=== PATIENT | female | born 1960 | race Caucasian/White ===

== ENCOUNTER 2023-05-13 08:53 | Outpatient (OUT) | payer BC, SELFPAY ==
--- NOTE | 2023-05-13 09:13 | MM_ITS ---
Patient: Tato TOLBERT Exam Date: 05/13/2023 : 1960 Gender:F Ordering : Non-Staff Physician Admission #: [id number] Family : DR. KESHIA TAYLOR . Order #: [id number] CLICK HERE TO VIEW EXAM RADIOLOGY REPORT PROCEDURE: MM TOMOSYNTHESIS DIAGNOSTIC LT, 05/13/2023, 09:06 US BREAST LT LIMITED, 05/13/2023, 09:38 COMPARISON: MG MAMM SCREEN 3D EDDIE CAD, 08/12/2022. INDICATIONS: Left Axillary Lump R22.32, Mass Of Upper Outer Quadrant Calculator Name NCI Breast Cancer Risk Assessment Tool 5 Year Breast Cancer Risk n/a% Lifetime Breast Cancer Risk n/a% Personal Breast Cancer Yes, DCIS, cribiform type Personal Ovarian Cancer No Treatments Lumpectomy, radiation,Tamoxifen Family Cancers Mother with breast cancer at age 72; Father with skin cancer at age 65. LOCATION: [facility] BREAST COMPOSITION: Scattered areas fibroglandular density. FINDINGS: DIAGNOSTIC CATEGORY 0--INCOMPLETE: NEED ADDITIONAL IMAGING EVALUATION. The left breast is stable in overall size and fibroglandular configuration. Area of architectural distortion and asymmetric density again noted in the upper outer quadrant. Coarse calcifications likely postsurgical dystrophic in nature. In the region the patient's palpable abnormality demarcated with a triangle marker upper outer quadrant in area focal asymmetry is observed, grossly stable. Scattered calcifications and surgical clips. Linear scar markers. Ultrasound demonstrates corresponding to the patient's palpable abnormality 2.6 x 0.9 x 1.7 cm lobular angular mass with acoustic shadowing. Adjacent to this is an area severe hypoechogenicity likely representing scar tissue. This lesion is indeterminate as this is a newly palpable mass, and given the patient's multiple prior surgeries, MRI follow-up is RECOMMENDATIONS: BREAST MRI: BILATERAL BREASTS PLEASE NOTE: A NORMAL MAMMOGRAM DOES NOT EXCLUDE THE POSSIBILITY OF BREAST CANCER. A CLINICALLY SUSPICIOUS PALPABLE LUMP SHOULD BE BIOPSIED. Dictated by: Guanaco Fountain MD on 05/13/2023 at 10:09 Approved by: Guanaco Fountain MD on 05/13/2023 at 10:12
== END 2023-05-13 08:54 | disposition home or self-care (01) ==
PROVIDERS: PCP Family Medicine
DX: D05.12 Intraductal carcinoma in situ of left breast (principal); R22.32 Localized swelling, mass and lump, left upper limb; N63.21 Unspecified lump in the left breast, upper outer quadrant
CPT/HCPCS: 76642; 77065; G0279

== ENCOUNTER 2024-08-24 11:28 | Outpatient (OUT) | payer SELFPAY ==
--- NOTE | 2024-08-24 11:34 | MM_ITS ---
Patient Name: Tato TOLBERT MR#: [id number] : 1960 Exam Date: 08/24/2024 Ordering Doctor: DR Rosita Meza [facility] RADIOLOGY REPORT PROCEDURE: MM TOMOSYNTHESIS SCREENING BI COMPARISON: MM TOMOSYNTHESIS DIAGNOSTIC LT, 05/13/2023. MG MAMM SCREEN 3D EDDIE CAD, 08/12/2022. MG MAMM DIAGNOSTIC 3D EDDIE CAD, 08/08/2021. MG MAMM EDDIE DIAG W CAD, 07/17/2020. INDICATIONS: Screening Calculator Name NCI Breast Cancer Risk Assessment Tool 5 Year Breast Cancer Risk n/a% Lifetime Breast Cancer Risk n/a% Personal Breast Cancer Yes, DCIS, cribiform type Personal Ovarian Cancer No Treatments Lumpectomy, radiation,Tamoxifen Family Cancers Mother with breast cancer at age 72; Father with skin cancer at age 65. LOCATION: [facility] BREAST COMPOSITION: There are scattered areas of fibroglandular density. FINDINGS: DIAGNOSTIC CATEGORY 2--BENIGN FINDING: RIGHT BREAST: No significant suspicious finding. Scattered benign-appearing calcifications are present. No significant change has occurred. LEFT BREAST: No significant suspicious finding. Scattered benign-appearing calcifications are present. No significant change has occurred. Stable lower-outer quadrant post surgical scarring. RECOMMENDATIONS: ROUTINE MAMMOGRAM AND CLINICAL EVALUATION IN 12 MONTHS. PLEASE NOTE: A NORMAL MAMMOGRAM DOES NOT EXCLUDE THE POSSIBILITY OF BREAST CANCER. A CLINICALLY SUSPICIOUS PALPABLE LUMP SHOULD BE BIOPSIED. Dictated by: Leonardo Jean M.D. on 08/24/2024 at 15:27 Approved by: Leonardo Jean M.D. on 08/24/2024 at 15:29
== END 2024-08-24 11:29 | disposition home or self-care (01) ==
LOC: MAMMO 11:28
PROVIDERS: PCP Family Medicine; Visit Provider Physician Assistant Medical
DX: Z12.31 Encounter for screening mammogram for malignant neoplasm of breast (principal); Z85.3 Personal history of malignant neoplasm of breast; Z80.3 Family history of malignant neoplasm of breast; Z80.8 Family history of malignant neoplasm of other organs or systems
CPT/HCPCS: 77063; 77067

== ENCOUNTER 2024-11-08 12:15 | Outpatient (OUT) | payer OTHER, SELFPAY ==
--- NOTE | 2024-11-08 12:26 | XR_ITS ---
The [place] [id number] Patient Name: Tato TOLBERT MRN: [id number] date: 1960 Sex: F Assigned Patient Location: [facility] Current Patient Location: Accession/Order Number: [id number] Exam Date: 11/08/2024 12:38 Report Date: 11/09/2024 08:17 At the request of: HEIDI GARNETT Procedure: XR lumbar spine min 4V EXAMINATION: XR lumbar spine min 4V HISTORY: Low Back Pain COMPARISON: CT abdomen pelvis 03/18/2020 FINDINGS: BONES: Mild left convex curvature of the thoracolumbar spine. No fracture, significant spondylolisthesis, or bone lesion. Moderate degenerative facet arthropathy L4-5, L5-S1. DISC SPACES: Marked narrowing L4-5, L5-S1. Mild/moderate narrowing L1-2, L2-3.. PARASPINOUS: Negative. No paraspinous abnormality is seen. OTHER: Negative. XR/XR lumbar spine min 4V IMPRESSION: 1. Multilevel moderate-marked degenerative changes of lumbar spine; not appreciably changed. Electronically authenticated by: PATRICA MARTIN Date: 11/09/2024 08:17
--- OUTSIDE RECORDS SUMMARY | 2024-11-08 12:38 | XMS_ITS | CCD ---
Author Organization [facility] Care Team Providers Care [employer] Name Role Phone PHYSICIAN, DEFAULT Unavailable Unavailable PHYSICIAN, DEFAULT Unavailable Unavailable LC HARVEY Unavailable Unavailable LC HARVEY Unavailable Unavailable LC PLATT Unavailable Unavailable LC PLATT Unavailable Unavailable [place] Unavailable Unavailable LC HARVEY Unavailable Unavailable [place] Unavailable Unavailable LOYD SCOTT Unavailable Unavailable [place] Claudio Attending Provider NO FAMILY, PHYSICIAN Primary Care Provider Unava ilable ALEXANDRA CASTANEDA Primary Care Physician [phone] Alexandra Castaneda MD Primary Care Provider [phone] Keshia Taylor Primary Care Physician Alexandra Castaneda MD Primary Care Provider CLARITZA GARCIA Attending Unavailable DR CHRISTINE ZULETA Primary Care Unavailable CLARITZA GARCIA Admitting Unavailable DR PATRICA JEAN Consulting Unavailable CLARITZA GARCIA Consulting Unavailable DR CHRISTINE ZULETA Attending Unavailable DR CHRISTINE ZULETA Consulting Unavailable DR CHRISTINE ZULETA Primary Care Unavailable DR CHRISTINE ZULETA Admitting Unavailable Alexandra Castaneda MD Primary Care Provider [phone] Alexandra Castaneda MD Primary Care Provider Keshia Taylor MD Primary Care Provider [phone] JASON BUCHANAN Attending Unavailable CLARITZA GARCIA Referring Unavailable KESHIA TAYLOR Primary Care Unavailable KESHIA TAYLOR Primary Care Unavailable Unavailable Unavailable Unavailable Allergies Allergy Classification Reported Allergen(s) Allergy Type Date of Onset Reaction(s) Facility (16 sources) Sulfonamides (Antibiotic); Translations: [SULFA (SULFONAMIDE ANTIBIOTICS)] Propensity to adverse reactions (disorder) 3 Rash [facility] (20 sources) RAGWEED; Translations: [RAGWEED] Propensity to adverse reactions (disorder) 4 Intolerance, Unknown [facility] (1 source) No Known Allergies; Translations: [No Known Allergies] Propensity to adverse reactions (disorder) [facility] (9 sources) Sulfonamides (Antibiotic); Translations: [sulfa drugs] Drug allergy Eruption of skin (disorder) [facility] [place] (1 source) Sulfonamides (Antibiotic) Drug allergy (disorder) 3 The [facility] Medications Current Medications Medication Drug Class(es) Dates Sig (Normalized) Sig (Original) alendronic acid 35 mg oral tablet (20 sources) Bisphosphonate Start: 08-28-2021 alendronate (FOSAMAX) 35 mg tablet 08/28/2021 Active ALPRAZolam 0.25 mg oral tablet (20 sources) Benzodiazepine Start: 05-22-2015 take 1 tablet by mouth every twenty-four hours as needed ALPRAZolam (XANAX) 0.25 mg tablet Take 0.25 mg by mouth at bedtime as needed. 05/22/2015 Active Comment on above: Take 0.25 mg by mout h at bedtime as needed. amLODIPine 10 mg oral tablet (20 sources) Dihydropyridine Calcium Channel Mandi Start: 07-26-2020 take 1 tablet by mouth once daily Norvasc 10 mg Tab See Instructions, 1 tab(s) Oral Daily, Refills(s) 0, High blood pressure Start Date: 07/26/20 Status: Ordered take 1 tablet by mouth once aida y amLODIPine (NORVASC) 5 mg tablet Take 5 mg by mouth once daily. Active Comment on above: Take 5 mg by mouth o nce daily. aspirin 81 mg oral capsule (16 sources) Platelet Aggregation Inhibitor, Nonsteroidal Anti-inflammatory Drug Start: 02-20-2022 aspirin 81 mg oral capsule 81 mg = 1 cap(s), Oral, MonTueSat, Refills(s) 0 Start Date: 02/20/22 Status: Ordered ADULT ASPIRIN OR AL Take 81 mg by mouth. Active Comment on above: Take 81 mg by mouth. atorvastatin 40 mg oral tablet (14 sources) HMG-CoA Reductase Inhibitor Start: take 1 tablet by mouth once daily atorvastatin (LIPITOR) 40 mg tablet Take 40 mg by mouth once daily. 08/25/2022 Active Start: 07-25-2022 take 1 tablet by claude th once daily atorvastatin 40 mg Tab 40 mg = 1 tab(s), Oral, Daily, # 30 tab(s), Refills(s) 0 Start Date: 07/25/22 Status: Ordered Comment on above: Take 40 mg by mouth once daily. benzonatate 100 mg oral capsule (9 sources) Non-narcotic Antitussive Start: 02-20-2022 take 1 capsule by mouth three times daily Tessalon 100 mg Cap 100 mg = 1 cap(s), Oral, TID, Refills(s) 0 Start Date: 02/20/22 Status: Ordered Calcium Carbonate / vitamin D3 (13 sources) CALCIUM CARBONATE/VITAMIN D3 (CALCIUM 500 + D ORAL) Take by mouth. Active CALCIUM CARBONAT E/VITAMIN D3 (CALCIUM 500 + D ORAL) Take by mouth. 0 Active Comment on above: Take by mouth. cephalexin 500 mg oral capsule (1 source) Cephalosporin Antibacterial Start: 07-29-20 End: 08-03-20 take 1 capsule by mouth three times daily Keflex 500 mg Cap 500 mg = 1 cap(s), Oral, TID, X 5 day(s), # 15 cap(s), Refills(s) 0, Pharmacy: [facility], 155, cm, 07/27/22 17:37:00 EDT, Height/Length Dosing, 82.1, kg, 07/27/22 17:37:00 EDT, Weight Dosing Start Date: 07/29/22 Stop Date: 08/03/22 Status: Ordered cholecalciferol 5500 unt / vitamin k2 0.2 mg oral tablet (10 sources) Vitamin D Start: 06-29-20 take 1 tablet by mouth once daily DOSOKAP 5,500-200 unit-mcg tab TAKE 1 TABLET BY MOUTH ONCE DAILY 06/29/2022 Active Comment on above: TAKE 1 TABLET BY CLAUDE TH ONCE DAILY ciprofloxacin 500 mg oral tablet (1 source) Quinolone Antimicrobial Start: 02-21-20 End: 02-28-20 take 1 tablet by mouth every twelve hours Cipro 500 mg Tab 500 mg = 1 tab(s), Oral, q12hr, X 7 day(s), # 14 tab(s), Refills(s) 0, Pharmacy: [id number], 154, cm, 02/20/22 14:58:00 EDT, Height/Length Dosing, 85.7, kg, 02/20/22 14:58:00 EDT, Weight Dosing Start Date: 02/20/22 Stop Date: 02/27/22 Status: Ordered Co-Q10 (9 sources) Start: 07-26-20 take 1 tablet by mouth three times daily Co-Q10 1 tab, Oral, TID, Refills(s) 0, Prophylaxis Start Date: 07/26/20 Status: Ordered Essential oil tab (Immune) (9 sources) Start: 08-04-20 Essential oil tab (Immune) Essential oil tab (Immune), 1 tab, Oral, Daily Start Date: 08/04/20 Status: Ordered Flonase (7 sources) Corticosteroid Start: 08-04-20 Flonase 1 spray(s), Nasal, Daily, Refill(s) 0, Allergy symptoms Start Date: 08/04/20 Status: Ordered Magnesium (13 sources) Start: 08-04-20 MAGNESIUM ORAL Take 250 mg by mouth. 08/04/2020 Active Start: 08-04-2020 MAGNESIUM ORAL Take 250 mg by mouth. 0 08/04/2020 Active Comment on above: Take 250 mg by mouth . magnesium gluconate 250 mg oral tablet (9 sources) Start: 08-04-2020 take 1 tablet by mouth once daily magnesium gluconate 250 mg oral tablet 250 mg, 1 tab(s), Oral, Daily, Refill(s) 0, Prophylaxis Start Date: 08/04/20 Status: Ordered Medrol Dosepack 4 mg Tab (1 source) Start: 02-20-2022 End: 02-26-2022 Medrol Dosepack 4 mg Tab = 1 packet(s), Oral, As Directed, as directed on package labeling, X 6 day(s), # 21 tab(s), Refills(s) 0, Pharmacy: [id number], 154, cm, 02/20/22 14:58:00 EDT, Height/Length Dosing, 85.7, kg, 02/20/22 14:58:00 EDT, Weight Dosing Start Date: 02/20/22 Stop Date: 02/26/22 Status: Ordered melatonin 10 mg extended release oral tablet (20 sources) Start: 07-26-2020 take 10 mg by mouth once daily at bedtime melatonin 10 mg, Oral, Once a day (at bedtime), Refills(s) 0, Sleep Start Date: 07/26/20 Status: Ordered take 1 tablet by claude th every twenty-four hours as needed melatonin 3 mg tablet Take 3 mg by mouth at bedtime as needed. Active Comment on above: Take 3 mg by mouth a t bedtime as needed. metoprolol tartrate 25 mg oral tablet (15 sources) beta-Adrenergic Mandi Start: 08-25-2022 take 1 tablet by mouth twice daily metoprolol tartrate, short acting, (LOPRESSOR) 25 mg tablet Take 25 mg by mouth twice daily. 08/25/2022 Active Start: 07-25-2022 End: 07-28-2022 take 1 tablet by mouth twice daily Metoprolol tartrate 25 mg Tab 25 mg = 1 tab(s), Oral, BID, # 60 tab(s), Refills(s) 0 Start Date: 07/25/22 Status: Ordered Comment on above: Take 25 mg by mouth twice daily. Mounjaro 5 mg/0.5 mL subcutaneous solution (7 sources) Start: 07-08-2022 Mounjaro 5 mg/0.5 mL subcutaneous solution Refills(s) 0 Start Date: 07/08/22 Status: Ordered MOUNJARO 7.5 mg/0.5 mL pen injector (10 sources) Start: 08-25-2022 MOUNJARO 7.5 mg/0.5 mL pen injector INJECT 1 ONCE A WEEK 08/25/2022 Active Start: 08-25-2022 MOUNJARO 7.5 m g/0.5 mL pen injector INJECT 1 ONCE A WEEK 0 08/25/2022 Active Comment on above: INJECT 1 ONCE A WEEK Multi Vitamin+ (9 sources) Start: 07-26-2020 take 1 tablet by mouth once daily Multi Vitamin+ 1 tab, Oral, Daily, Refill(s) 0 Start Date: 07/26/20 Status: Ordered Multivitamin preparation (13 sources) MULTIVITAMIN ( TAMIN DAILY ORAL) Take by mouth. Active MULTIVITAMIN ( TAMIN DAILY ORAL) Take by mouth. 0 Active Comment on above: Take by mouth. naproxen 250 mg oral tablet (20 sources) Nonsteroidal Anti-inflammatory Drug Start: 08-04-2020 naproxen (NAPROSYN) 250 mg tablet Take by mouth. 08/04/2020 Active Start: 08-04-2020 take 2 tablets by mo [facility] every twelve hours naproxen 250 mg tab = 2 tab(s), Oral, q12hr, Refills(s) 0, Pain Start Date: 08/04/20 Status: Ordered Comment on above: Take by mouth. 12 hr orphenadrine citrate 100 mg extended release oral tablet (9 sources) Muscle Relaxant Start: take 1 tablet by mouth twice daily orphenadrine 100 mg ER Tab 100 mg = 1 tab(s), Oral, BID, Refills(s) 0 Start Date: 02/20/22 Status: Ordered pantoprazole 20 mg delayed release oral tablet (7 sources) Proton Pump Inhibitor Start: take 1 tablet by mouth twice daily pantoprazole DR (PROTONIX) 20 mg tablet take 1 tablet by mouth twice daily as directed 03/14/2023 Active Comment on above: take 1 tablet by [facility] twice daily as directed Prevagen Extra Strength (9 sources) Start: take 50 ug by mouth once daily Prevagen Extra Strength 50 mcg, Oral, Daily, Refills(s) 0 Start Date: 02/20/22 Status: Ordered semaglutide 1.7 mg/0.75 mL (1.7 mg dose) subcutaneous solution (1 source) Start: End: inject 1.7 mg by subcutaneous injection every week semaglutide 1.7 mg/0.75 mL (1.7 mg dose) subcutaneous solution 1.7 mg, SubCutaneous, qWeek, X 4 week(s), # 4 EA, Refills(s) 0, Pharmacy: [id number], 154, cm, 02/20/22 14:58:00 EDT, Height/Length Dosing, 85.7, kg, 04/27/22 14:58:00 EDT, Weight Dosing Start Date: 02/20/22 Stop Date: 03/20/22 Status: Ordered ubidecarenone 10 mg oral capsule (13 sources) take 1 capsule by mouth once daily ubidecarenone Q-10 (COENZYME Q-10) 10 mg cap Take 10 mg by mouth once daily. Active Comment on above: Take 10 mg by mouth once daily. 24 hr venlafaxine 75 mg extended release oral capsule (20 sources) Serotonin and Norepinephrine Reuptake Inhibitor Start: 024 take 1 capsule by mouth once daily venlafaxine ER (EFFEXOR XR) 75 mg 24 hr capsule Take 1 capsule by mouth once daily 90 capsule 11/05/2023 Active Start: 01-09-2022 End: 07-16-2023 take 1 capsule by mouth once daily venlafaxine ER (EFFEXOR XR) 75 mg 24 hr capsule Take 1 capsule by mouth once daily 90 capsule 0 03/25/2023 07/16/2023 Discontinued Start: 07-26-2020 take 75 mg by mouth once daily Effexor XR 75 mg, Oral, Daily, Refills(s) 0, Depression Start Date: 07/26/20 Status: Ordered Comment on above: Take 1 capsule by mo ut once daily Vitamin B Complex (10 sources) vitamin B comple x (VITAMIN B-50 COMPLEX ORAL) Take by mouth once daily. Active vitamin B comple x (VITAMIN B-50 COMPLEX ORAL) Take by mouth once daily. 0 Active Comment on above: Take by mouth once d aily. Vitamin B Complex oral capsule (2 sources) Start: 08-05-2022 Vitamin B Complex oral capsule Refill(s) 0 Start Date: 08/05/22 Status: Ordered Completed/Discontinued Medications Medication Drug Class(es) Dates Sig (Normalized) Sig (Original) B-12 1000 mcg oral tablet (9 sources) Start: 07-26-2020 B-12 1000 mcg oral tablet 1,000 microgram = 1 tab(s), Oral, WedSun, Refills(s) 0, Prophylaxis Start Date: 07/26/20 Status: Ordered eflornithine 139 mg/ml topical cream (6 sources) Antiprotozoal, Decarboxylase Inhibitor Start: 04-09-2019 VANIQA 13.9 % crea APPLY CREAM TWICE DAILY 5 04/09/2019 Active Comment on above: APPLY CREAM TWICE DA FARZANA iv contrast (will be provided with radiology test) (4 sources) Start: 05-22-2023 End: 05-23-2023 iv contrast (will be provided with radiology test) MRI Breast EDDIE Inject, intravenously, once for 1 dose. No IV access, insert saline lock prior to the beginning of sedation, infusion, injection of imaging exam. Discontinue saline lock post exam. If Pt has a central line or IVAD, may access for administration according to line specific nursing protocol. Once exam is complete flush line and de-access according to line specific nursing protocol in the MR contrast administration guidelines link 1 Each 0 05/22/2023 05/23/2023 Comment on above: MRI Breast EDDIE Injec t, intravenously, once for 1 dose. No IV access, insert saline lock prior to the beginning of sedation, infusion, injection of imaging exam. Discontinue saline lock post exam. If Pt has a central line or IVAD, may access for administration according to line specific nursing protocol. Once exam is complete flush line and de-access according to line specific nursing protocol in the MR contrast administration guidelines link lisinopril 20 mg oral tablet (20 sources) Angiotensin Converting Enzyme Inhibitor Start: 07-29-2022 End: 07-29-2022 lisinopril 20 mg Tab 20 mg = 1 tab(s), Tab, Oral, Start date 07/29/22 9:00:00 EDT, 07/28/22 2:36:00 EDT Start Date: 07/29/22 Stop Date: 07/29/22 Status: Completed Start: 08-10-2015 take 1 tablet by claude once daily lisinopril (ZESTRIL, PRINIVIL) 20 mg tablet Take 20 mg by mouth once daily. 08/10/2015 Active Comment on above: Take 20 mg by mouth once daily. vitamin b12 1 mg oral tablet (3 sources) Vitamin B12 take 1 tablet by mouth two times weekly cyanocobalamin (VITAMIN B-12) 1,000 mcg tab Take 1,000 mcg by mouth twice a week. 0 Active Comment on above: Take 1,000 mcg by mo [facility] twice a week. Problems Active Problems Problem Classification Problem Date Documented Da te Episodic/Chronic Cancer of breast (20 sources) Intraductal carcinoma in situ of left breast; Translations: [Intraductal carcinoma in situ of breast] Onset: 3 02-20-2022 Chronic Cancer of breast (4 sources) H/O: neoplasm; Translations: [Personal history of in-situ neoplasm of breast] Onset: 2 Episodic Complications of surgical procedures or medical care (4 sources) Other complications of procedures, not elsewhere classified, initial encounter; Translations: [OTH COMPLICATIONS OF PROCEDURES, NEC, INIT] Onset: 8 Episodic Coronary atherosclerosis and other heart disease (1 source) Coronary atherosclerosis; Translations: [Atherosclerotic heart disease of [place] coronary artery without angina pectoris] Onset: 2 Chronic Disorders of lipid metabolism (1 source) Hyperlipidemia; Translations: [Hyperlipidemia, unspecified] Onset: 2 Chronic Esophageal disorders (9 sources) Gastroesophageal reflux disease without esophagitis Onset: 0 02-20-2022 Chronic Essential hypertension (10 sources) Essential (primary) hypertension; Translations: [Essential hypertension] Onset: 8 02-20-2022 Chronic Fluid and electrolyte disorders (3 sources) Acidosis; Translations: [Other acidosis] Onset: 2 Episodic Headache; including migraine (1 source) Headache; Translations: [Headache, unspecified] Onset: 2 Episodic Hypertension with complications and secondary hypertension (1 source) Hypertensive urgency ; Translations: [Hypertensive urgency] Onset: 2 Chronic Immunizations and screening for infectious disease (1 source) Encounter for screening for human papillomavirus (HPV); Translations: [ENC SCREENING HUMAN PAPILLOMAVIRUS] Onset: 2 Episodic Malaise and fatigue (8 sources) Postexertional fatigue 04-18-2022 Episodic Mood disorders (10 sources) Major depression, single episode; Translations: [Depressive disorder] Onset: 0 02-20-2022 Chronic Nonmalignant breast conditions (3 sources) Breast lump; Translations: [Unspecified lump in unspecified breast] 05-22-2023 Episodic Other gastrointestinal disorders (1 source) Bariatric surgery status; Translations: [BARIATRIC SURGERY STATUS] Onset: 8 Episodic Other nervous system disorders (1 source) Metabolic encephalopathy; Translations: [Metabolic encephalopathy] Onset: 2 Chronic Other nutritional; endocrine; and metabolic disorders (9 sources) Calorie overload 02-20-2022 Chronic Other nutritional; endocrine; and metabolic disorders (1 source) Obesity; Translations: [Obesity, unspecified] Onset: 2 Chronic Other nutritional; endocrine; and metabolic disorders (1 source) Excessive eating - polyphagia; Translations: [Polyphagia] Onset: 2 Episodic Other screening for suspected conditions (not mental disorders or infectious disease) (8 sources) Encounter for screening for malignant neoplasm of cervix; Translations: [Encounter for screening mammogram for malignant neoplasm of breast] Onset: 2 Episodic Other upper respiratory disease (1 source) Allergic rhinitis; Translations: [Allergic rhinitis, unspecified] Onset: 2 Chronic Other upper respiratory infections (8 sources) Acute upper respiratory infection; Translations: [Acute upper respiratory infection, unspecified] Onset: 2 Episodic Residual codes; unclassified (1 source) Obstructive sleep apnea syndrome; Translations: [Obstructive sleep apnea (adult) (pediatric)] Onset: 2 Chronic Residual codes; unclassified (1 source) Procedure carried out on subject; Translations: [Encounter for prophylactic measures, unspecified] Onset: 2 Episodic Residual codes; unclassified (1 source) Family history of malignant neoplasm of breast; Translations: [FAMILY HX MALIG NEOPLASM OF BREAST] Onset: 2 Episodic Residual codes; unclassified (1 source) Family history of malignant neoplasm of other organs or systems; Translations: [FAM HX MALIG NEOPLASM OTH ORGN/SYS] Onset: 2 Episodic Unclassified (1 source) Personal history of irradiation; Translations: [PERSONAL HISTORY OF IRRADIATION] Onset: 8 Episodic Unclassified (2 sources) Unknown / UNK(Unknown) Onset: 8 Urinary tract infections (1 source) Urinary tract infectious disease; Translations: [Urinary tract infection, site not specified] Onset: 2 Episodic Past or Other Problems Problem Classification Problem Date Documented Da te Episodic/Chronic Calculus of urinary tract (9 sources) Ureteric stone Onset: 03-22-2020 02-20-2022 Episodic Other gastrointestinal disorders (9 sources) History of bariatric surgical procedure Onset: 01-22-2018 02-20-2022 Episodic Results Test Name Value Interpretation Reference Range Facility CBC W Auto Differential pane l (Bld)on 09-14-2024 Basophils (Bld) [#/Vol] 0.08 10*3/uL [facility] Basophils/100 WBC (Bld) 0.9 % C [facility] Differential cell count method Nom (Bld) Auto [facility] Eosinophils (Bld) [#/Vol] 0.15 10*3/uL [facility] Eosinophils/100 WBC (Bld) 1.7 % [facility] Erythrocyte distribution width (RBC) [Ratio] 13.2 % 11.5 - 15.0 % [facility] Hematocrit (Bld) [Volume fraction] 41.4 % 36.0 - 46.0 % [facility] Hemoglobin (Bld) [Mass/Vol] 13.5 g/dL 11.5 - 15.5 g/dL [facility] Immature granulocytes (Bld) [#/Vol] 0.03 10*3/uL [facility] Immature granulocytes/100 WBC (Bld) 0.3 % [facility] Interpretation and review of laboratory results Abnormal [facility] Lymphocytes (Bld) [#/Vol] 1.97 10*3/uL [facility] Lymphocytes/100 WBC (Bld) 21.8 % [facility] MCH (RBC) [Entitic mass] 29.3 pg 26. 0 - 34.0 pg [facility] MCHC (RBC) [Mass/Vol] 32.6 g/dL 30.5 - 36.0 g/dL [facility] MCV (RBC) [Entitic vol] 90.0 fL 80.0 - 100.0 fL [facility] Monocytes (Bld) [#/Vol] 0.53 10*3/uL [facility] Monocytes/100 WBC (Bld) 5.9 % C [facility] Neutrophils (Bld) [#/Vol] 6.29 10*3/uL [facility] Neutrophils/100 WBC (Bld) 69.4 % [facility] Nucleated RBC (Bld) [#/Vol] [facility] Nucleated RBC/100 WBC (Bld) [Ratio] 0.0 % /100 WBC [facility] Platelet mean volume (Bld) [Entitic vol] 9.2 fL 9.0 - 12.7 fL [facility] Platelets (Bld) [#/Vol] 405 10*3/uL High [facility] RBC (Bld) [#/Vol] 4.60 10*6/uL 3.90 - 5.2 0 m/uL [facility] WBC (Bld) [#/Vol] 9.05 10*3/uL [facility] Basophils (Bld) [#/Vol] 0.08 10*3/uL Normal <0.11 [facility] Comment on above: Order Comment: Speci men Type: BLOOD SPECIMEN Ordering Facility: [facility] Address: [address] [place] [address] Performed By: #### 5 7021-8 #### [facility] CLIA [id number] [address] [place] [address]177 Basophils/100 WBC (Bld) 0.9 % Normal [facility] Comment on above: Order Comment: Speci men Type: BLOOD SPECIMEN Ordering Facility: [facility] Address: [address] [place] [address] Performed By: #### 5 7021-8 #### [facility] CLIA [id number] [address] [place] [address] 16652 Differential cell count method Nom (Bld) Auto Normal [facility] Comment on above: Order Comment: Speci men Type: BLOOD SPECIMEN Ordering Facility: [facility] Address: [address] [place] [address] Performed By: #### 5 7021-8 #### [facility] CLIA [id number] [address] [place] [address] Eosinophils (Bld) [#/Vol] 0.15 10*3/uL Normal <0.46 [facility] Comment on above: Order Comment: Speci men Type: BLOOD SPECIMEN Ordering Facility: [facility] Address: [address] [place] [address] Performed By: #### 5 7021-8 #### [facility] CLIA [id number] [address] [place] [address] Eosinophils/100 WBC (Bld) 1.7 % Normal [facility] Comment on above: Order Comment: Speci men Type: BLOOD SPECIMEN Ordering Facility: [facility] Address: [address] [id number] Performed By: #### 5 7021-8 #### [facility] CLIA [id number] [address] [place] [address] Erythrocyte distribution width (RBC) [Ratio] 13.2 % Normal 11.5-15.0 [facility] Comment on above: Order Comment: Speci men Type: BLOOD SPECIMEN Ordering Facility: [facility] Address: [address] [place] [address] Performed By: #### 5 7021-8 #### [facility] CLIA [id number] [address] [place] [address]258 Hematocrit (Bld) [Volume fraction] 41.4 % Normal 36.0-46.0 [facility] Comment on above: Order Comment: Speci men Type: BLOOD SPECIMEN Ordering Facility: [facility] Address: [address] [place] [address] Performed By: #### 5 7021-8 #### [facility] CLIA [id number] [address] [place] [address]93 Hemoglobin (Bld) [Mass/Vol] 13.5 g/dL Normal 11.5-15.5 [facility] Comment on above: Order Comment: Speci men Type: BLOOD SPECIMEN Ordering Facility: [facility] Address: [address] [place] [address] Performed By: #### 5 7021-8 #### [facility] CLIA [id number] [address] [place] [address] Immature granulocytes (Bld) [#/Vol] 0.03 10*3/uL Normal <0.10 [facility] Comment on above: Order Comment: Speci men Type: BLOOD SPECIMEN Ordering Facility: [facility] Address: [address] [place] [address] Performed By: #### 5 7021-8 #### [facility] CLIA [id number] [address] [place] [address] Immature granulocytes/100 WBC (Bld) 0.3 % Normal [facility] Comment on above: Order Comment: Speci men Type: BLOOD SPECIMEN Ordering Facility: [facility] Address: [address] [place] [address] Performed By: #### 5 7021-8 #### [facility] CLIA [id number] [address] [place] [address] 00185 Lymphocytes (Bld) [#/Vol] 1.97 10*3/uL Normal 1.00-4.00 [facility] Comment on above: Order Comment: Speci men Type: BLOOD SPECIMEN Ordering Facility: [facility] Address: [address] [place] [address] Performed By: #### 5 7021-8 #### [facility] CLIA [id number] [address] [place] [address] 58685 Lymphocytes/100 WBC (Bld) 21.8 % Normal [facility] Comment on above: Order Comment: Speci men Type: BLOOD SPECIMEN Ordering Facility: [facility] Address: [address] [place] [address] Performed By: #### 5 7021-8 #### [facility] CLIA [id number] [address] [place] [address] 56136 MCH (RBC) [Entitic mass] 29.3 pg Normal 26.0-34.0 [facility] Comment on above: Order Comment: Speci men Type: BLOOD SPECIMEN Ordering Facility: [facility] Address: [address] [place] [address] Performed By: #### 5 7021-8 #### [facility] CLIA [id number] [address] [place] [address] 17840 MCHC (RBC) [Mass/Vol] 32.6 g/dL Normal 30.5-36.0 [facility] Comment on above: Order Comment: Speci men Type: BLOOD SPECIMEN Ordering Facility: [facility] Address: [address] [place] [address] Performed By: #### 5 7021-8 #### [facility] CLIA [id number] [address] [place] [address] 92678 MCV (RBC) [Entitic vol] 90.0 fL Normal 80.0-100.0 [facility] Comment on above: Order Comment: Speci men Type: BLOOD SPECIMEN Ordering Facility: [facility] Address: [address] [place] [address] Performed By: #### 5 7021-8 #### [facility] CLIA [id number] [address] [place] [address] 35832 Monocytes (Bld) [#/Vol] 0.53 10*3/uL Normal <0.87 [facility] Comment on above: Order Comment: Speci men Type: BLOOD SPECIMEN Ordering Facility: [facility] Address: [address] [place] [address] Performed By: #### 5 7021-8 #### [facility] CLIA [id number] [address] [place] [address] 33359 Monocytes/100 WBC (Bld) 5.9 % Normal [facility] Comment on above: Order Comment: Speci men Type: BLOOD SPECIMEN Ordering Facility: [facility] Address: [address] [place] [address] Performed By: #### 5 7021-8 #### [facility] CLIA [id number] [address] [place] [address] 98275 Neutrophils (Bld) [#/Vol] 6.29 10*3/uL Normal 1.45-7.50 [facility] Comment on above: Order Comment: Speci men Type: BLOOD SPECIMEN Ordering Facility: [facility] Address: [address] [place] [address] Performed By: #### 5 7021-8 #### [facility] CLIA [id number] [address] [place] [address] 15695 Neutrophils/100 WBC (Bld) 69.4 % Normal [facility] Comment on above: Order Comment: Speci men Type: BLOOD SPECIMEN Ordering Facility: [facility] Address: [address] [place] [address] Performed By: #### 5 7021-8 #### [facility] CLIA [id number] [address] [place] [address] 20602 Nucleated RBC (Bld) [#/Vol] 10*3/uL Normal <0.01 [facility] Comment on above: Order Comment: Speci men Type: BLOOD SPECIMEN Ordering Facility: [facility] Address: [address] [place] [address] Performed By: #### 5 7021-8 #### [facility] CLIA [id number] [address] [place] [address] 15445 Nucleated RBC/100 WBC (Bld) [Ratio] 0.0 /100 WBC Normal [facility] Comment on above: Order Comment: Speci men Type: BLOOD SPECIMEN Ordering Facility: [facility] Address: [address] [place] [address] Performed By: #### 5 7021-8 #### [facility] CLIA [id number] [address] [place] [address] 95216 Platelet mean volume (Bld) [Entitic vol] 9.2 fL Normal 9.0-12.7 [facility] Comment on above: Order Comment: Speci men Type: BLOOD SPECIMEN Ordering Facility: [facility] Address: [address] [place] [address] Performed By: #### 5 7021-8 #### [facility] CLIA [id number] [address] [place] [address] 46396 Platelets (Bld) [#/Vol] 405 10*3/uL High 150-400 [facility] Comment on above: Order Comment: Speci men Type: BLOOD SPECIMEN Ordering Facility: [facility] Address: [address] [place] [address] Performed By: #### 5 7021-8 #### [facility] CLIA [id number] [address] [place] [address] 66952 RBC (Bld) [#/Vol] 4.60 10*6/uL Normal 3.90-5.20 [facility] Comment on above: Order Comment: Speci men Type: BLOOD SPECIMEN Ordering Facility: [facility] Address: [address] [place], [place] [address] Performed By: #### 5 7021-8 #### [facility] CLIA [id number] [address] [place] [address] 44162 WBC (Bld) [#/Vol] 9.05 10*3/uL Normal 3.70-11.00 [facility] Comment on above: Order Comment: Speci men Type: BLOOD SPECIMEN Ordering Facility: [facility] Address: [address] [place] [address] Performed By: #### 5 7021-8 #### [facility] CLIA [id number] [address] [place], [place] [address] CNOVSPon 09-14-2024 CNOVSP Visit (SP) Office (HEMASA) Tato TOLBERT ([id number]) 1960 F Date Time Provider Department 09/14/24 2:00 PM JASON BUCHANAN HEMHUMA During your visit today, we recorded the following information about you: Temperature Pulse Respiration Blood pressure 97.6 degrees 98/minute 16/minute 154/89 Weight Height 83.5 kg 1.524 m Jason Buchanan MD 09/14/2024 2:28 PM Signed Some of the elements of this note have been copied from previous progress note dated 07/22/23. All the information has been reviewed carefully. 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 HISTORY OF PRESENT ILLNESS: Tiffany Tolbert is a 62 year old woman who presents in follow up of above 08/2011 : Abnormal mammogram noted- recommend 6 month follow-up 02/2012 : six month follow completed recommended another six-month follow-up 09/2012 : Biopsy with subsequent lumpectomy notes DCIS of the left breast 01/2013 : Complete adjuvant radiation 04/2013 : Starts adjuvant tamoxifen 10/2017 : BIRADS 4 mammogram of left breast recommend biopsy 11/2017 : no malignancy identified (see below) 12/2017 : Had infection around biopsy site, requires antibiotics and revision, has since healed 04/2018 : completes therapy with tamoxifen 06/2018 : Mammogram recommended biopsy again : pathology without evidence of recurrence or malignancy She felt a lump in her breast 04/2023 and that led to a mammogram and US which recommended an MRI which she had completed. She is doing well otherwise. Visit 09/14/24: - Mammogram on 08/24/24 is normal - Doing well - No major complains - Had 2 colonoscopies. Last one was 5 yrs ago. PAST MEDICAL HISTORY Diagnosis Date Hypercholesteremia Hypertension PAST SURGICAL HISTORY Procedure Laterality Date HYSTERECTOMY HX 03/06/2015 LUMPECTOMY/RADIOTHERAP Y DIAG MAMM/A10 REMOVE THORACIC LYMPH NODES TONSILLECTOMY HX Review of Social History includes: Tobacco Use: Never Alcohol Use: Yes FAMILY HISTORY Problem Relation Age of Onset Heart Mother Stroke Mother Breast Cancer Mother 72 Heart Father Diabetes Father Cancer Father skin cancer Stroke Father Hypertension Mother Hypertension Father Diabetes Brother Hypertension Brother Current Outpatient Medications Medication Sig Dispense Refill venlafaxine ER (EFFEXOR XR) 75 mg 24 hr capsule Take 1 capsule by mouth once daily [address] (PROTONIX) 20 mg tablet take 1 tablet by mouth twice daily as directed ADULT ASPIRIN ORAL Take 81 mg by mouth. metoprolol tartrate, short acting, (LOPRESSOR) 25 mg tablet Take 25 mg by mouth twice daily. atorvastatin (LIPITOR) 40 mg tablet Take 40 mg by mouth once daily. MOUNJARO 7.5 mg/0.5 mL pen injector INJECT 1 ONCE A WEEK DOSOKAP 5,500-200 unit-mcg tab TAKE 1 TABLET BY MOUTH ONCE DAILY vitamin B complex (VITAMIN B-50 COMPLEX ORAL) Take by mouth once daily. alendronate (FOSAMAX) 35 mg tablet MAGNESIUM ORAL Take 250 mg by mouth. naproxen (NAPROSYN) 250 mg tablet Take by mouth. melatonin 3 mg tablet Take 3 mg by mouth at bedtime as needed. ubidecarenone Q-10 (COENZYME Q-10) 10 mg cap Take 10 mg by mouth once daily. amLODIPine (NORVASC) 5 mg tablet Take 5 mg by mouth once daily. CALCIUM CARBONATE/VITAMIN D3 (CALCIUM 500 + D ORAL) Take by mouth. MULTIVITAMIN (VITAMIN DAILY ORAL) Take by mouth. ALPRAZolam (XANAX) 0.25 mg tablet Take 0.25 mg by mouth at bedtime as needed. lisinopril (ZESTRIL, PRINIVIL) 20 mg tablet Take 20 mg by mouth once daily. No current facility-administered medications for this visit. Review Of Systems: Constitutional: No recent fevers chills or sweats Respiratory: No cough or hemoptysis. Denies dyspnea Cardiovascular: No chest pain or palpitations. No leg swelling GI: No nausea, vomiting, diarrhea or GI bleed. Skin: No rash or lesions. Neurologic: No focal weakness or sensory changes. Psychiatric:normal mood and affect Hematopoietic: No easy bruising or enlarged lymphadenopathy. : No frequency or dysuria. No abnormal bleeding MSk: no recent cramping Breast: no skin changes or mass Physical Examination: [facility] 02/08/2013 General: Alert and oriented, no distress, pleasant and cooperative. Heart: Regular, normal S1 and S2, no murmurs, rubs, or gallops. Lungs: Clear to auscultation bilaterally. Abdomen: Benign. No hepatosplenomegaly. Extremities: Feet/ankles without edema, posterior tibial pulses full and symmetrical Lymph: no cervical supraclavicular or axillary adenopathy Breast: right: no masses or skin changes Left: scar is well healed in left axilla, no masses or skin changes PATHOLOGY 10/2012 Lumpectomy IMAGING: MRI Bilateral Breast 06/2023: IMPRESSION: BENIGN FINDING 1. No MRI evidence of malignancy. 2. Postsurgical scarring and small seroma in the left axilla at site of prior axillary lymph node surgery disease and palpabl (more content not included)... Normal [facility] metabolic 2000 panelOrdered By: Jesus Montoya on 09-14-2024 Albumin [Mass/Vol] 4.2 g/dL 3.9 - 4.9 g/dL [facility] ALP [Catalytic activity/Vol] 57 U/L 34 - 123 U/L [facility] ALT [Catalytic activity/Vol] 41 U/L High 7 - 38 U/L [facility] Anion gap [Moles/Vol] 10 mmol/L 8 - 15 mmol/L [facility] AST [Catalytic activity/Vol] 36 U/L High 13 - 35 U/L [facility] Bilirubin [Mass/Vol] 0.4 mg/dL 0.2 - 1 .3 mg/dL [facility] Calcium [Mass/Vol] 9.8 mg/dL 8.5 - 10. 2 mg/dL [facility] Chloride [Moles/Vol] 107 mmol/L 98 - 10 7 mmol/L [facility] CO2 [Moles/Vol] 24 mmol/L 22 - 30 mmol/L [facility] Creatinine [Mass/Vol] 0.71 mg/dL 0.58 - 0.96 mg/dL [facility] GFR/1.73 sq M.predicted among non-blacks MDRD (S/P/Bld) [Vol rate/Area] 94 mL/min/{1.73_m2} - PINF [facility] Comment on above: Estimated Glomerular Filtration Rate (eGFR) is calculated using the 2020 CKD-EPI creatinine equation. This equation utilizes serum creatinine, sex, and age as parameters. The creatinine assay has traceable calibration to isotope dilution-mass spectrometry. Refer to KDIGO guidelines for clinical interpretation. In patients with unstable renal function, e.g. those with acute kidney injury, the eGFR may not accurately reflect actual GFR. Glucose [Mass/Vol] 112 mg/dL High 74 - 99 mg/dL [facility] Comment on above: The [place] Diabete s Association (ADA) provides guidance for cutoff values for fasting glucose and random glucose. The ADA defines fasting as no caloric intake for at least 8 hours. Fasting plasma glucose results between 100 to 125 mg/dL indicate increased risk for diabetes (prediabetes). Fasting plasma glucose results greater than or equal to 126 mg/dL meet the criteria for diagnosis of diabetes. In the absence of unequivocal hyperglycemia, results should be confirmed by repeat testing. In a patient with classic symptoms of hyperglycemia or hyperglycemic crisis, random plasma glucose results greater than or equal to 200 mg/dL meet the criteria for diagnosis of diabetes. Reference: Standards of Medical Care in Diabetes 2016, [place] Diabetes Association. Diabetes Care. 2016.39(Suppl 1). Interpretation and review of laboratory results Abnormal [facility] Potassium [Moles/Vol] 4.3 mmol/L 3.7 - 5.1 mmol/L [facility] Protein [Mass/Vol] 6.7 g/dL 6.3 - 8.0 g/dL [facility] Sodium [Moles/Vol] 141 mmol/L 136 - 144 mmol/L [facility] Urea nitrogen [Mass/Vol] 16 mg/dL 7 - 21 mg/dL [facility] Comprehensive metabolic 2000 panelon 09-14-2024 Albumin [Mass/Vol] 4.2 g/dL Normal 3.9-4.9 [facility] Comment on above: Order Comment: Speci men Type: BLOOD SPECIMEN Ordering Facility: [facility] Address: [address] [place] [address] Performed By: #### 2 4323-8 #### [facility] CLIA [id number] [address] [place] [address] 53204 ALP [Catalytic activity/Vol] 57 U/L Normal 34-123 [facility] Comment on above: Order Comment: Speci men Type: BLOOD SPECIMEN Ordering Facility: [facility] Address: [address] [place] [address] Performed By: #### 2 4323-8 #### [facility] CLIA [id number] [address] [place] [address] 92113 ALT [Catalytic activity/Vol] 41 U/L High 7-38 [facility] Comment on above: Order Comment: Speci men Type: BLOOD SPECIMEN Ordering Facility: [facility] Address: [address] [place] [address] Performed By: #### 2 4323-8 #### [facility] CLIA [id number] [address] [place] [address] 82383 Anion gap [Moles/Vol] 10 mmol/L Normal 8-15 [facility] Comment on above: Order Comment: Speci men Type: BLOOD SPECIMEN Ordering Facility: [facility] Address: [address] [place] [address] Performed By: #### 2 4323-8 #### [facility] CLIA [id number] [address] [place] [address] AST [Catalytic activity/Vol] 36 U/L High 13-35 [facility] Comment on above: Order Comment: Speci men Type: BLOOD SPECIMEN Ordering Facility: [facility] Address: [address] [place] [address] Performed By: #### 2 4323-8 #### [facility] CLIA [id number] [address] [place] [address] 97710 Bilirubin [Mass/Vol] 0.4 mg/dL Normal 0.2-1.3 [facility] Comment on above: Order Comment: Speci men Type: BLOOD SPECIMEN Ordering Facility: [facility] Address: [address] [place] [address] Performed By: #### 2 4323-8 #### [facility] CLIA [id number] [address] [place] [address] 44553 Calcium [Mass/Vol] 9.8 mg/dL Normal 8.5-10.2 [facility] Comment on above: Order Comment: Speci men Type: BLOOD SPECIMEN Ordering Facility: [facility] Address: [address] [place] [address] Performed By: #### 2 4323-8 #### [facility] CLIA [id number] [address] [place] [address] 04274 Chloride [Moles/Vol] 107 mmol/L Normal 98-107 [facility] Comment on above: Order Comment: Speci men Type: BLOOD SPECIMEN Ordering Facility: [facility] Address: [address] [place], [place] [address] Performed By: #### 2 4323-8 #### [facility] CLIA [id number] [address] [place] [address] 06397 CO2 [Moles/Vol] 24 mmol/L Normal 22-30 [facility] Comment on above: Order Comment: Speci men Type: BLOOD SPECIMEN Ordering Facility: [facility] Address: [address] [place] [address] Performed By: #### 2 4323-8 #### [facility] CLIA [id number] [address] [place] [address] 00688 Creatinine [Mass/Vol] 0.71 mg/dL Normal 0.58-0.96 [facility] Comment on above: Order Comment: Speci men Type: BLOOD SPECIMEN Ordering Facility: [facility] Address: [address] [id number] Performed By: #### 2 4323-8 #### [facility] CLIA [id number] [address] [place] [address] 14871 Creatinine and Glomerular filtration rate.predicted panel (S/P/Bld) 94 mL/min/1.73m??? Normal >=60 [facility] Comment on above: Order Comment: Speci men Type: BLOOD SPECIMEN Ordering Facility: [facility] Address: [address] [place] [address] Result Comment: Rosmery mated Glomerular Filtration Rate (eGFR) is calculated using the 2020 CKD-EPI creatinine equation. This equation utilizes serum creatinine, sex, and age as parameters. The creatinine assay has traceable calibration to isotope dilution-mass spectrometry. Refer to KDIGO guidelines for clinical interpretation. In patients with unstable renal function, e.g. those with acute kidney injury, the eGFR may not accurately reflect actual GFR. Performed By: #### 2 4323-8 #### [facility] CLIA [id number] [address] [place] [address] 30625 Glucose [Mass/Vol] 112 mg/dL High 74-99 [facility] Comment on above: Order Comment: Speci men Type: BLOOD SPECIMEN Ordering Facility: [facility] Address: [address] [id number] Result Comment: The [place] Diabetes Association (ADA) provides guidance for cutoff values for fasting glucose and random glucose. The ADA defines fasting as no caloric intake for at least 8 hours. Fasting plasma glucose results between 100 to 125 mg/dL indicate increased risk for diabetes (prediabetes). Fasting plasma glucose results greater than or equal to 126 mg/dL meet the criteria for diagnosis of diabetes. In the absence of unequivocal hyperglycemia, results should be confirmed by repeat testing. In a patient with classic symptoms of hyperglycemia or hyperglycemic crisis, random plasma glucose results greater than or equal to 200 mg/dL meet the criteria for diagnosis of diabetes. Reference: Standards of Medical Care in Diabetes 2016, [place] Diabetes Association. Diabetes Care. 2016.39(Suppl 1). Performed By: #### 2 4323-8 #### [facility] CLIA [id number] [address] [place] [address] Potassium [Moles/Vol] 4.3 mmol/L Normal 3.7-5.1 [facility] Comment on above: Order Comment: Speci men Type: BLOOD SPECIMEN Ordering Facility: [facility] Address: [address] [place] [address] Performed By: #### 2 4323-8 #### [facility] CLIA [id number] [address] [place] [address] 47451 Protein [Mass/Vol] 6.7 g/dL Normal 6.3-8.0 [facility] Comment on above: Order Comment: Speci stephany Type: BLOOD SPECIMEN Ordering Facility: [facility] Address: [address] [place] [address] Performed By: #### 2 4323-8 #### [facility] CLIA [id number] [address] [place] [address] 00676 Sodium [Moles/Vol] 141 mmol/L Normal 136-144 [facility] Comment on above: Order Comment: Speci men Type: BLOOD SPECIMEN Ordering Facility: [facility] Address: [address] [place] [address] Performed By: #### 2 4323-8 #### [facility] CLIA [id number] [address] [place] [address] 02187 Urea nitrogen [Mass/Vol] 16 mg/dL Normal 7-21 [facility] Comment on above: Order Comment: Mainei stephany Type: BLOOD SPECIMEN Ordering Facility: [facility] Address: [address] [place] [address] Performed By: #### 2 4323-8 #### [facility] CLIA [id number] [address] [place] [address]13 Retail - Clinical Noteon Retail - Clinical Note [id number] 0TIFF Normal [facility] Retail - Clinical Noteon Retail - Clinical Note [id number] 0TIFF Normal [facility] Consultation Noteon 07-29-20 Consultation Note [id number] CD:127 [facility] MRI BREAST WO/W IVCON BILATE RALon 07-10-2023 [facility] Physician Orderon 05-30-2023 Physician Order [id number] 0CD:127 [facility] RAD - Ultrasound Reporton RAD - Ultrasound Report [id number] 0CD:127 [facility] Outside Mammographyon 2022 Outside Mammography [id number] 0CD:127 [facility] PAP ACOG PANEL 2: 30 to 65on 09-06-2022 . . Normal [facility] Comment on above: Result Comment: Perf ormed at: BA Performed By: #### 4 [id number] #### [facility] [address] [place] [address] Dr. Errol Armendariz Age Gdln ACOG Testing 30-65 [facility] Comment on above: Performed By: #### 4 [id number] #### [facility] [address] [place], [place] [address] Dr. Errol Armendariz DIAGNOSIS: Comment [facility] Comment on above: Result Comment: NEGA TIVE FOR INTRAEPITHELIAL LESION OR MALIGNANCY. CELLULAR CHANGES ASSOCIATED WITH ATROPHY ARE PRESENT. Performed at: BA Performed By: #### 4 [id number] #### [facility] [address] [place] [address] Dr. Errol Armendariz HPV Aptima Negative Normal Negative [facility] Comment on above: Result Comment: This nucleic acid amplification test detects fourteen high-risk HPV types (16,18,31,33,35,39,45,51,52,56,58,59,66,68) without differentiation. Performed at: =G Performed By: #### 4 [id number] #### [facility] [address] [address] [address] Errol Armendariz HPV Genotype Reflex Comment Normal [facility] Comment on above: Result Comment: Crit eria not met, HPV Genotype not performed. Performed at: BA Performed By: #### 4 [id number] #### [facility] [address] [place] [address] Dr. Errol Armendariz Methodology: Comment Normal [facility] Comment on above: Result Comment: This liquid based ThinPrep(R) pap test was screened with the use of an image guided system. Performed at: WB Performed By: #### 4 [id number] #### [facility] [address] [place] [address] Dr. Errol Armendariz Note: Comment Normal [facility] Comment on above: Result Comment: The Pap smear is a screening test designed to aid in the detection of premalignant and malignant conditions of the uterine cervix. It is not a diagnostic procedure and should not be used as the sole means of detecting cervical cancer. Both false-positive and false-negative reports do occur. . Performed at: WB Performed By: #### 4 [id number] #### [facility] [address] [place] [address] Dr. Errol Armendariz Performed by: Comment Normal [facility] Comment on above: Result Comment: Marilyn Trotter, Director Of Archives (ASCP) Performed at: BA Performed By: #### 4 [id number] #### [facility] [address] [place] [id number] Dr. Errol Armendariz Specimen adequacy: Comment Normal [facility] Comment on above: Result Comment: Sati sfactory for evaluation. Endocervical component may not be distinguished in cases of atrophy. Performed at: Performed By: [id number] #### [facility] [address] [place] [address] Dr. Errol Armendariz MG MAMM SCREEN 3D EDDIE CADon 08-12-2022 MG MAMM SCREEN 3D EDDIE CAD Patient: Tato TOLBERT Exam Date: 08/12/2022 : 1960 Gender:F Ordering : CLARITZA GARCIA Admission #: [id number] Family : Order #: [id number] CLICK HERE TO VIEW EXAM RADIOLOGY REPORT PROCEDURE: MAMMOGRAM SCREENING 3D BILATERAL CAD COMPARISON: MG MAMM DIAGNOSTIC 3D EDDIE CAD, 08/08/2021. MG MAMM EDDIE DIAG W CAD, 07/17/2020. INDICATIONS: Screening mammography Calculator Name NCI Breast Cancer Risk Assessment Tool 5 Year Breast Cancer Risk n/a% Lifetime Breast Cancer Risk n/a% Personal Breast Cancer Yes, DCIS, cribiform type Personal Ovarian Cancer No Treatments Lumpectomy, radiation,Tamoxifen Family Cancers Mother with breast cancer at age 72; Father with skin cancer at age 65. LOCATION: [facility] BREAST COMPOSITION: Scattered areas fibroglandular density. FINDINGS: DIAGNOSTIC CATEGORY 2--BENIGN FINDING: RIGHT BREAST: No significant suspicious finding. No significant change has occurred. LEFT BREAST: No significant suspicious finding. Stable postsurgical scarring and dystrophic calcifications within posterior upper-outer quadrant. No significant change has occurred. RECOMMENDATIONS: ROUTINE MAMMOGRAM AND CLINICAL EVALUATION IN 12 MONTHS. PLEASE NOTE: A NORMAL MAMMOGRAM DOES NOT EXCLUDE THE POSSIBILITY OF BREAST CANCER. A CLINICALLY SUSPICIOUS PALPABLE LUMP SHOULD BE BIOPSIED. Dictated by: Patrica Jean M.D. on 08/12/2022 at 12:41 Approved by: Patrica Jean M.D. on 08/12/2022 at 12:55 Normal [facility] CHEMISTRYOrdered By: SYSTEM SYSTEM on 07-29-2022 Anion gap [Moles/Vol] 7 mmol/L Normal 6 - 16 mEq/L [facility] Remisol Calcium [Mass/Vol] 8.1 mg/dL Low 8.9 - 11. 1 mg/dL [facility] Chloride [Moles/Vol] 117 mmol/L High 101 - 1 11 mmol/L [facility] CO2 [Moles/Vol] 21 mmol/L Normal 21 - 31 mmol/L [facility] Creatinine [Mass/Vol] 0.6 mg/dL Normal 0.5 - 1.3 mg/dL [facility] GFR/1.73 sq M.predicted among blacks MDRD (S/P/Bld) [Vol rate/Area] mL/min/1.73 m2 Normal >=59mL/min/ 1.73 m2 [facility] Chem S GFR/1.73 sq M.predicted among non-blacks MDRD (S/P/Bld) [Vol rate/Area] mL/min/1.73 m2 Normal >=59mL/min/ 1.73 m2 [facility] Chem S Glucose [Mass/Vol] 86 mg/dL Normal 55 - 199 mg/dL [facility] Remisol Potassium [Moles/Vol] 3.8 mmol/L Normal 3.5 - 5.3 mmol/L [facility] Sodium [Moles/Vol] 141 mmol/L Normal 135 - 145 mmol/L [facility] Urea nitrogen [Mass/Vol] 8 mg/dL Normal 5 - 21 mg/dL [facility] Urea nitrogen/Creatinine [Mass ratio] 13 mg/mg Normal 10 - 20 [facility] CHEMISTRYOrdered By: SYSTEM SYSTEM on 07-28-2022 Albumin [Mass/Vol] 3.4 g/dL Normal 3.3 - 5.0 gm/dL [facility] Remisol Albumin/Globulin [Mass ratio] 1.3 {ratio} Normal 1.1 - 2.2 [facility] ALP [Catalytic activity/Vol] 23 [iU]/d Normal 21 - 98 Int._Unit/L [facility] ALT No additional P-5'-P [Catalytic activity/Vol] 14 [iU]/d Normal 6 - 46 Int._Unit/L [facility] Anion gap [Moles/Vol] 12 mmol/L Normal 6 - 16 mEq/L [facility] AST [Catalytic activity/Vol] 16 [iU]/d Normal 5 - 43 Int._Unit/L [facility] Bilirubin [Mass/Vol] 0.7 mg/dL Normal 0.0 - 1 .1 mg/dL [facility] Bilirubin.direct [Mass/Vol] 0.2 mg/dL Normal 0.1 - 0.4 mg/dL [facility] Bilirubin.indirect [Mass or moles/Vol] 0.5 mg/dL Normal 0.1 - 0.9 mg/dL [facility] Calcium [Mass/Vol] 8.2 mg/dL Low 8.9 - 11. 1 mg/dL [facility] Chloride [Moles/Vol] 113 mmol/L High 101 - 1 11 mmol/L [facility] Cholesterol [Mass/Vol] 153 mg/dL Normal 120 - 200 mg/dL [facility] Cholesterol in HDL [Mass/Vol] 40 mg/dL Invalid Interpretation Code [facility] Cholesterol in LDL [Mass/Vol] 94 mg/dL Normal <=129mg/dL [facility] Cholesterol in VLDL [Mass/Vol] 17 mg/dL Normal 7 - 40 mg/dL [facility] CO2 [Moles/Vol] 19 mmol/L Low 21 - 31 mmol/L [facility] Cobalamin (Vitamin B12) [Mass/Vol] 807 pg/mL Normal 50 - 1500 pg/mL [facility] Creatinine [Mass/Vol] 0.8 mg/dL Normal 0.5 - 1.3 mg/dL [facility] GFR/1.73 sq M.predicted among blacks MDRD (S/P/Bld) [Vol rate/Area] mL/min/1.73 m2 Normal >=59mL/min/ 1.73 m2 [facility] Chem S GFR/1.73 sq M.predicted among non-blacks MDRD (S/P/Bld) [Vol rate/Area] mL/min/1.73 m2 Normal >=59mL/min/ 1.73 m2 [facility] Chem S Globulin (S) [Mass/Vol] 2.7 g/dL Normal 1.4 - 4.0 gm/dL [facility] Glucose [Mass/Vol] 93 mg/dL Normal 55 - 199 mg/dL [facility] Lactate [Mass/Vol] 0.7 mmol/L Normal 0.5 - 2.2 mmol/L [facility] Protein [Mass/Vol] 6.1 g/dL Normal 6.0 - 7.8 gm/dL [facility] Sodium [Moles/Vol] 141 mmol/L Normal 135 - 145 mmol/L [facility] Triglyceride [Mass/Vol] 86 mg/dL Normal <=149mg/dL [facility] TSH Qn 1.13 m[IU]/L Normal 0.34 - 5.60 mcIU/mL [facility] Urea nitrogen [Mass/Vol] 18 mg/dL Normal 5 - 21 mg/dL [facility] Urea nitrogen/Creatinine [Mass ratio] 22 mg/mg High 10 - 20 [facility] CHEMISTRYOrdered By: Andrey sinha on 07-28-2022 HbA1c (Bld) [Mass fraction] 5.1 % Normal <=5.9% [facility] CHEMISTRYOrdered By: Gracie Kraft on 07-28-2022 Potassium [Moles/Vol] 3.0 mmol/L Low 3.5 - 5.3 mmol/L [facility] HEMATOLOGYOrdered By: SYSTEM SYSTEM on 07-28-2022 Basophils/100 WBC (Bld) 1.3 % Normal 0.0 - 2.0 % [facility]eAuto[facility] Basophils/Leukocytes Auto (Bld) [Pure # fraction] 0.1 E9/L Normal 0.0 - 0.2 E9/L [facility] Eosinophils/100 WBC (Bld) 1.7 % Normal 0.0 - 8.0 % [facility] Eosinophils/Leukocytes Auto (Bld) [Pure # fraction] 0.1 E9/L Normal 0.0 - 0.5 E9/L [facility] Lymphocytes/100 WBC (Bld) 36.9 % Normal 14.0 - 50.0 % [facility] Lymphocytes/Leukocytes Auto (Bld) [Pure # fraction] 2.4 E9/L Normal 1.0 - 4.0 E9/L [facility] Monocytes/100 WBC (Bld) 8.6 % Normal 4.0 - 14.0 % [facility]eAuto[facility] Monocytes/Leukocytes Auto (Bld) [Pure # fraction] 0.6 E9/L Normal 0.2 - 1.0 E9/L [facility] Neutrophils/100 WBC (Bld) 51.5 % Normal 36.0 - 75.0 % [facility] Neutrophils/Leukocytes Auto (Bld) [Pure # fraction] 3.3 E9/L Normal 2.0 - 7.5 E9/L [facility] HEMATOLOGYOrdered By: Franny Huggins on 07-28-2022 Erythrocyte distribution width (RBC) [Ratio] 13.7 % Normal 10.9 - 14.2 % [facility]eAuto[facility] Hematocrit (Bld) [Volume fraction] 37.7 % Normal 34.0 - 46.0 % [facility] Hemoglobin (Bld) [Mass/Vol] 12.6 g/dL Normal 12.0 - 16.0 gm/dL [facility] MCH (RBC) [Entitic mass] 29.5 pg Normal 27. 0 - 34.0 pg [facility] MCHC (RBC) [Mass/Vol] 33.5 g/dL Normal 31.4 - 36.0 gm/dL [facility] MCV (RBC) [Entitic vol] 88.1 fL Normal 80.0 - 100.0 fL [facility] Platelet mean volume (Bld) [Entitic vol] 7.9 fL Normal 6.4 - 10.8 fL [facility] Platelets (Bld) [#/Vol] 348.0 E9/L Normal 150. 0 - 500.0 E9/L [facility] RBC (Bld) [#/Vol] 4.3 E12/L Normal 4.3 - 5.9 E12/L [facility] Sed Rate Automated 12 mm/h Normal 0 - 34 mm/hr [facility] WBC corrected for nucl RBC Auto (Bld) [#/Vol] 6.4 E9/L Normal 4.0 - 11.0 E9/L [facility] HemeAutoSS CHEMISTRYOrdered By: SYSTEM SYSTEM on 07-27-2022 Anion gap [Moles/Vol] 19 mmol/L High 6 - 16 mEq/L [facility] Calcium [Mass/Vol] 9.4 mg/dL Normal 8.9 - 11. 1 mg/dL [facility] Chloride [Moles/Vol] 107 mmol/L Normal 101 - 1 11 mmol/L [facility] CO2 [Moles/Vol] 18 mmol/L Low 21 - 31 mmol/L [facility] Creatinine [Mass/Vol] 0.9 mg/dL Normal 0.5 - 1.3 mg/dL [facility] GFR/1.73 sq M.predicted among blacks MDRD (S/P/Bld) [Vol rate/Area] mL/min/1.73 m2 Normal >=59mL/min/ 1.73 m2 [facility] Chem S GFR/1.73 sq M.predicted among non-blacks MDRD (S/P/Bld) [Vol rate/Area] mL/min/1.73 m2 Normal >=59mL/min/ 1.73 m2 [facility] Chem S Glucose [Mass/Vol] 109 mg/dL Normal 55 - 199 mg/dL [facility] Potassium [Moles/Vol] 3.6 mmol/L Normal 3.5 - 5.3 mmol/L [facility] Sodium [Moles/Vol] 140 mmol/L Normal 135 - 145 mmol/L [facility] Troponin I.cardiac [Mass/Vol] 6.90 pg/mL Low 10.10 - 27.10 pg/mL [facility] Urea nitrogen [Mass/Vol] 24 mg/dL High 5 - 21 mg/dL [facility] Urea nitrogen/Creatinine [Mass ratio] 27 mg/mg High 10 - 20 [facility] COAGULATIONOrdered By: Sudha Arenas on 07-27-2022 aPTT Coag (PPP) [Time] 37.9 s High 25.1 - 36.5 second(s) [facility] Auto Coag INR Coag (PPP) [Relative time] 1.0 {INR} Invalid Interpretation Code [facility] Auto Coag PT Coag (PPP) [Time] 11.3 s Normal 9.4 - 1 2.5 second(s) [facility] Auto Coag HEMATOLOGYOrdered By: SYSTEM SYSTEM on 07-27-2022 Basophils/100 WBC (Bld) 0.4 % Normal 0.0 - 2.0 % [facility] HemeAutoSS Comment on above: Result Comment: Deepti ection date/time has been modified to: 17:38:00. Previous collection date/time: 18:15:00. Basophils/Leukocytes Auto (Bld) [Pure # fraction] 0.0 E9/L Normal 0.0 - 0.2 E9/L [facility] HemeAutoSS Comment on above: Result Comment: Deepti ection date/time has been modified to: 17:38:00. Previous collection date/time: 18:15:00. Eosinophils/100 WBC (Bld) 0.7 % Normal 0.0 - 8.0 % [facility] Comment on above: Result Comment: Deepti ection date/time has been modified to: 17:38:00. Previous collection date/time: 18:15:00. Eosinophils/Leukocytes Auto (Bld) [Pure # fraction] 0.1 E9/L Normal 0.0 - 0.5 E9/L [facility] Comment on above: Result Comment: Deepti ection date/time has been modified to: 17:38:00. Previous collection date/time: 18:15:00. Lymphocytes/100 WBC (Bld) 14.2 % Normal 14.0 - 50.0 % [facility] Comment on above: Result Comment: Deepti ection date/time has been modified to: 17:38:00. Previous collection date/time: 18:15:00. Lymphocytes/Leukocytes Auto (Bld) [Pure # fraction] 1.4 E9/L Normal 1.0 - 4.0 E9/L [facility] Comment on above: Result Comment: Deepti ection date/time has been modified to: 17:38:00. Previous collection date/time: 18:15:00. Monocytes/100 WBC (Bld) 6.8 % Normal 4.0 - 14.0 % [facility] Comment on above: Result Comment: Deepti ection date/time has been modified to: 17:38:00. Previous collection date/time: 18:15:00. Monocytes/Leukocytes Auto (Bld) [Pure # fraction] 0.7 E9/L Normal 0.2 - 1.0 E9/L [facility] Comment on above: Result Comment: Deepti ection date/time has been modified to: 17:38:00. Previous collection date/time: 18:15:00. Neutrophils/100 WBC (Bld) 77.9 % High 36.0 - 75.0 % [facility] Comment on above: Result Comment: Deepti ection date/time has been modified to: 17:38:00. Previous collection date/time: 18:15:00. Neutrophils/Leukocytes Auto (Bld) [Pure # fraction] 7.6 E9/L High 2.0 - 7.5 E9/L [facility] Comment on above: Result Comment: Deepti ection date/time has been modified to: 17:38:00. Previous collection date/time: 18:15:00. HEMATOLOGYOrdered By: Franny Huggins on 07-27-2022 Erythrocyte distribution width (RBC) [Ratio] 13.7 % Normal 10.9 - 14.2 % [facility] Comment on above: Result Comment: Deepti ection date/time has been modified to: 17:38:00. Previous collection date/time: 18:15:00. Hematocrit (Bld) [Volume fraction] 44.8 % Normal 34.0 - 46.0 % [facility] Comment on above: Result Comment: Deepti ection date/time has been modified to: 17:38:00. Previous collection date/time: 18:15:00. Hemoglobin (Bld) [Mass/Vol] 14.6 g/dL Normal 12.0 - 16.0 gm/dL [facility] Comment on above: Result Comment: Deepti ection date/time has been modified to: 17:38:00. Previous collection date/time: 18:15:00. MCH (RBC) [Entitic mass] 28.3 pg Normal 27. 0 - 34.0 pg [facility] Comment on above: Result Comment: Deepti ection date/time has been modified to: 17:38:00. Previous collection date/time: 18:15:00. MCHC (RBC) [Mass/Vol] 32.6 g/dL Normal 31.4 - 36.0 gm/dL [facility] Comment on above: Result Comment: Deepti ection date/time has been modified to: 17:38:00. Previous collection date/time: 18:15:00. MCV (RBC) [Entitic vol] 86.7 fL Normal 80.0 - 100.0 fL [facility] Comment on above: Result Comment: Deepti ection date/time has been modified to: 17:38:00. Previous collection date/time: 18:15:00. Platelet mean volume (Bld) [Entitic vol] 8.2 fL Normal 6.4 - 10.8 fL [facility] Comment on above: Result Comment: Deepti ection date/time has been modified to: 17:38:00. Previous collection date/time: 18:15:00. Platelets (Bld) [#/Vol] 417.0 E9/L Normal 150. 0 - 500.0 E9/L [facility] Comment on above: Result Comment: Deepti ection date/time has been modified to: 17:38:00. Previous collection date/time: 18:15:00. RBC (Bld) [#/Vol] 5.2 E12/L Normal 4.3 - 5.9 E12/L [facility] Comment on above: Result Comment: Deepti ection date/time has been modified to: 17:38:00. Previous collection date/time: 18:15:00. WBC corrected for nucl RBC Auto (Bld) [#/Vol] 9.7 E9/L Normal 4.0 - 11.0 E9/L [facility] Comment on above: Result Comment: Deepti ection date/time has been modified to: 17:38:00. Previous collection date/time: 18:15:00. Laboratory - Microbiology an d Antimicrobial susceptibilityOrdered By: Mariana Espinoza on 07-27-2022 Bacteria identified Cx Nom (U) <10,000 cfu/ml Mixed skin contaminants Mixed cady (multiple species present) [facility] URINALYSISOrdered By: Jose A Arenas on 07-27-2022 Bacteria LM Ql (Urine sed) Trace /HPF Normal Trace/HPF [facility] UA Auto SS Bilirubin Ql (U) Negative (07/27/22 6:22 PM) Normal Negative [facility] UA Auto SS Clarity (U) Clear (07/27/22 6:22 PM) Normal Clear [facility] UA Auto SS Color (U) Yellow (07/27/22 6:22 PM) Normal Yellow [facility] UA Auto SS Epithelial cells.squamous LM.HPF (Urine sed) [#/Area] 3-4 /HPF Normal 0-2/HPF [facility] UA Aut o SS Glucose Test strip (U) [Mass/Vol] Negative (07/27/22 6:22 PM) Normal Negative [facility] UA Auto SS Hemoglobin Ql (U) Negative (07/27/22 6:22 PM) Normal Negative [facility] UA Auto SS Ketones (U) [Mass/Vol] 3+ *ABN* (07/27/22 6:22 PM) Invalid Interpretation Code Negative [facility] UA Auto SS [place].plasma/[place].R BC (Bld) [Mass ratio] 0-3 /HPF Normal 0-3/HPF [facility] UA Au to SS Mucus Ql (Urine sed) Trace (07/27/22 6:22 PM) Normal [facility] UA Auto SS Nitrite Ql (U) Negative (07/27/22 6:22 PM) Normal Negative [facility] UA Auto SS pH (U) 5.5 *NA* (07/27/22 6:22 PM) Invalid Interpretation Code 5.0 - 9.0 [facility] UA Auto SS Protein (U) [Mass/Vol] Negative (07/27/22 6:22 PM) Normal Negative [facility] UA Auto SS Specific gravity (U) [Rel density] 1.025 *NA* (07/27/22 6:22 PM) Invalid Interpretation Code 1.005 - 1.030 [facility] UA Auto SS UA Spec Desc Clean Catch (07/27/22 6:22 PM) Normal [facility] UA Auto SS Urobilinogen Qn (U) 0.1176764 {Yumiko'U}/dL Normal 0.0 - 1.0 EU/dL [facility] UA Auto SS WBC Auto Ql (U) 1+ *ABN* (07/27/22 6:22 PM) Invalid Interpretation Code Negative [facility] UA Auto SS WBC LM.HPF (Urine sed) [#/Area] 6-15 /HPF Invalid Interpretation Code 0-5/HPF [facility] UA Auto SS CHEMISTRYOrdered By: SYSTEM SYSTEM on 07-19-2022 Anion gap [Moles/Vol] 11 mmol/L Normal 6 - 16 mEq/L [facility] Remisol Calcium [Mass/Vol] 9.1 mg/dL Normal 8.9 - 11. 1 mg/dL [facility] Remisol Chloride [Moles/Vol] 107 mmol/L Normal 101 - 1 11 mmol/L [facility] Remisol CO2 [Moles/Vol] 24 mmol/L Normal 21 - 31 mmol/L [facility] Remisol Creatinine [Mass/Vol] 0.8 mg/dL Normal 0.5 - 1.3 mg/dL [facility] Remisol GFR/1.73 sq M.predicted among blacks MDRD (S/P/Bld) [Vol rate/Area] mL/min/1.73 m2 Normal >=59mL/min/ 1.73 m2 [facility] Chem S GFR/1.73 sq M.predicted among non-blacks MDRD (S/P/Bld) [Vol rate/Area] mL/min/1.73 m2 Normal >=59mL/min/ 1.73 m2 [facility] Chem S Glucose [Mass/Vol] 85 mg/dL Normal 55 - 199 mg/dL [facility] Remisol Potassium [Moles/Vol] 4.2 mmol/L Normal 3.5 - 5.3 mmol/L [facility] Remisol Sodium [Moles/Vol] 138 mmol/L Normal 135 - 145 mmol/L [facility] Remisol Urea nitrogen [Mass/Vol] 17 mg/dL Normal 5 - 21 mg/dL [facility] Remisol Urea nitrogen/Creatinine [Mass ratio] 21 mg/mg High 10 - 20 [facility] Remisol HEMATOLOGYOrdered By: SYSTEM SYSTEM on 07-19-2022 Basophils/100 WBC (Bld) 1.2 % Normal 0.0 - 2.0 % [facility] HemeAuto[facility] Basophils/Leukocytes Auto (Bld) [Pure # fraction] 0.1 E9/L Normal 0.0 - 0.2 E9/L [facility] Eosinophils/100 WBC (Bld) 2.7 % Normal 0.0 - 8.0 % [facility] HemeAuto[facility] Eosinophils/Leukocytes Auto (Bld) [Pure # fraction] 0.2 E9/L Normal 0.0 - 0.5 E9/L [facility] Lymphocytes/100 WBC (Bld) 29.2 % Normal 14.0 - 50.0 % [facility] Lymphocytes/Leukocytes Auto (Bld) [Pure # fraction] 2.3 E9/L Normal 1.0 - 4.0 E9/L [facility] Monocytes/100 WBC (Bld) 7.2 % Normal 4.0 - 14.0 % [facility] Monocytes/Leukocytes Auto (Bld) [Pure # fraction] 0.6 E9/L Normal 0.2 - 1.0 E9/L [facility] Neutrophils/100 WBC (Bld) 59.7 % Normal 36.0 - 75.0 % [facility] Neutrophils/Leukocytes Auto (Bld) [Pure # fraction] 4.7 E9/L Normal 2.0 - 7.5 E9/L [facility] HEMATOLOGYOrdered By: Franny Huggins on 07-19-2022 Erythrocyte distribution width (RBC) [Ratio] 13.9 % Normal 10.9 - 14.2 % [facility] Hematocrit (Bld) [Volume fraction] 42.7 % Normal 34.0 - 46.0 % [facility] Hemoglobin (Bld) [Mass/Vol] 14.2 g/dL Normal 12.0 - 16.0 gm/dL [facility] MCH (RBC) [Entitic mass] 29.0 pg Normal 27. 0 - 34.0 pg [facility] MCHC (RBC) [Mass/Vol] 33.2 g/dL Normal 31.4 - 36.0 gm/dL [facility] MCV (RBC) [Entitic vol] 87.3 fL Normal 80.0 - 100.0 fL [facility] Platelet mean volume (Bld) [Entitic vol] 7.8 fL Normal 6.4 - 10.8 fL [facility] Platelets (Bld) [#/Vol] 415.0 E9/L Normal 150. 0 - 500.0 E9/L [facility] RBC (Bld) [#/Vol] 4.9 E12/L Normal 4.3 - 5.9 E12/L [facility] WBC corrected for nucl RBC Auto (Bld) [#/Vol] 7.8 E9/L Normal 4.0 - 11.0 E9/L [facility] Operative Reporton 8 Operative Report MR#: [id number] [facility] Pt. Name: Tato Tolbert Room #: 0C Discharge Date: Birthdate: 1960 OPERATIVE REPORTDATE OF SURGERY: 01/22/2018SURGEON: Lc Harvey, JOHNNYREOPERATIVE DIAGNOSIS: Chronic wound, left breast, radiated field.POSTOPERATIVE DIAGNOSIS: Chronic wound, left breast, radiated field.PROCEDURE:1. Excision of open wound, 5 x 3 cm, 5 cm deep.2. 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 She had a lumpectomy and radiation and made anuneventful recovery initially. Recently, she was complaining feeling of alump and abnormal appearance of the scar in the left lateral breast and hadbiopsy in November of 2017 that was performed for excision of the tissue atthe lump and pathology reported fibrous calcific tissue with no sign ofmalignancy. Nevertheless, following the biopsy, the wound is not healing.The patient had multiple treatments with antibiotics and required dressingchanges. However, on examination, she has wound approximately 2 x 1 cm onthe surface with irregular edges. No necrosis. No granulations. Woundis approximately 5 cm deep. Considering long treatment and no granulationsand condition of the tissue, recommendation is to proceed with excisionaltreatment and closure. Risks of bleeding, infection, need for additionalprocedures, poor scarring and healing, nonhealing over the radiated area,and need for additional procedures in the future discussed. The patientappears to be well informed willing to proceed with surgical treatment.Preoperative ly, questions answered, consent signed, and marking wasperformed.PROCEDURE IN DETAIL: The patient was taken to the operating room,positioned supine on the table, general endotracheal anesthesia introduced,area prepped and draped in usual sterile fashion with Hibiclens arms inabducted position, sterile dressing performed.Time-out was called. The patient, procedure, site of surgery, andassociated issues were discussed. No concerns expressed by the surgicalteam.Procedure , local anesthesia with lidocaine 1% with epi mixed with Marcaine0.25% at 1:1 mixture introduced 15 mL around the field of the plan forexcision. Methylene blue coloring of the wound performed. At this point,elliptical excision measured 5 x 3 cm, excising all irregular tissuehardened and irregular edges proceeded through the full-thickness of theskin with a 15 blade and proceeding further down to the chest wall forapproximately 5.5 to 6 cm deep completely excising all methylene bluecolored wound. With excision, noticeable part is the minimal topractically no bleeding and exceedingly hard tissue with fibrous and likelycalcifications considering hardness of the tissue. Following completion ofthe excision, copious irrigation of the wound performed with peroxidecleansing and Betadine additionally. At this point, attention turned toevaluation. The upper edge of the tissue was tethered to the upperattachment of the pectoralis and this was elevated to provide goodmobilization of the tissue to prevent retraction and compensate for excisedamount of tissue. The layer of mobilization was just above the muscularlayer fascia and sub-superficial fascia to provide different level anddirection of the pull of the tissue. At this point, a similar dissectionproceeded inferiorly towards the breast tissue with the elevation of theskin and subcutaneous tissue in the 1st layer and the glandular tissue inthe subfascial plane as a 2nd layer. Following mobilization, meticuloushemostasis was observed. Valsalva up to 40 cm of water pressure was givento the patient to confirm hemostasisAt this point, closure initiated by closing the deep layer [id number] Vicryl 0 sutures providing good closure and minimizingamount of the space. The 2nd layer was closed in the similar mannerwith 0 Vicryl and 2-0 PDS providing good alignment and apposition of thetissue to minimize the space and provide alignment of the tissue andthe deep dermal closure with 2-0 Vicryl and running 3-0 Monocryl completingthe closure.The patient tolerated the procedure well. Dermabond applied to the skin.Bulky soft sterile dressing is slightly compressing applied.ESTIMATED BLOOD LOSS: Scant.COMPLICATIONS: None.DISPOSITION: The patient is in good and stable condition, returned to therecovery room.Please note that length of closure was 6.5 cm and size of the excision was5 x 3 and 5.5 cm deep.Electronically Signed by:Lc Harvey MD 01/28/2018 05:37 P Lc Harvey, MDDate Dict: 01/22/2018/10:50 A/Lc Harvey, MDDate Trans: 01/22/2018 11:44 [id number]: Lc Platt M.D. [address] [facility] [id number] Normal [facility] POC GLUCOSE LABon 01-22-2018 Glucose mass conc 104 mg/dL High 70-100 [facility] Comment on above: Performed By: #### [id number] ####[facility] Vital Signs Date Time Vital Sign Value Performing Clinician Faci lity 09-14-2024 13:51-0500 Body height 152.4 cm Jason Buchanan MD Work Phone: [facility] 09-14-2024 13:51-0500 Body mass index (BMI) [Ratio] 35.95 kg/m2 Jason Buchanan MD Work Phone: [facility] 09-14-2024 13:51-0500 Body temperature 97.59 [degF] Jason Buchanan MD Work Phone: [facility] 09-14-2024 13:51-0500 Body weight 83.5 kg Jason Buchanan MD Work Phone: [facility] 09-14-2024 13:51-0500 Diastolic blood pressure 89 mm[Hg] Jason Buchanan MD Work Phone: [facility] 09-14-2024 13:51-0500 Heart rate 98 /min Jason Buchanan MD Work Phone: [facility] 09-14-2024 13:51-0500 Respiratory rate 16 /min Jason Buchanan MD Work Phone: [facility] 09-14-2024 13:51-0500 SaO2% (BldA) [Mass fraction] 97 % Jason Buchanan MD Work Phone: [facility] 09-14-2024 13:51-0500 Systolic blood pressure 154 mm[Hg] Jason Buchanan MD Work Phone: [facility] 08-15-2022 14:35-0400 Blood Pressure Location Ady Mahajan [facility] 08-15-2022 14:35-0400 Diastolic blood pressure 85 mm[Hg] Ady Mahajan [facility] 08-15-2022 14:35-0400 Heart rate 82 /min Ady Mahajan [facility] 08-15-2022 14:35-0400 Respiratory rate 18 /min Ady Mahajan [facility] 08-15-2022 14:35-0400 SaO2% (BldA) [Mass fraction] 100 % Ady Mahajan [facility] 08-15-2022 14:35-0400 Systolic blood pressure 134 mm[Hg] Ady Mahajan [facility] 08-05-2022 13:05-0400 Blood Pressure Location Keshia Taylor [facility] 08-05-2022 13:05-0400 Diastolic blood pressure 64 mm[Hg] Keshia Taylor [facility] 08-05-2022 13:05-0400 Heart rate 64 /min Keshia Taylor [facility] 08-05-2022 13:05-0400 SaO2% (BldA) [Mass fraction] 98 % Keshia Taylor [facility] 08-05-2022 13:05-0400 Systolic blood pressure 116 mm[Hg] Keshia Taylor [facility] 07-29-2022 15:00-0400 Hourly Rounding Félix CHERYL [facility] 07-29-2022 15:00-0400 Promise to Return Félix CHERYL [facility] 07-29-2022 14:00-0400 Hourly Rounding Félix CHERYL [facility] 07-29-2022 14:00-0400 Promise to Return Félix CHERYL [facility] 07-29-2022 14:00-0400 SaO2% (BldA) [Mass fraction] 97 % Félix CHERYL [facility] 07-29-2022 13:00-0400 Hourly Rounding Félix CHERYL [facility] 07-29-2022 13:00-0400 Promise to Return Félix CHERYL [facility] 07-29-2022 11:10-0400 Diastolic blood pressure 79 mm[Hg] Félix CHERYL [facility] 07-29-2022 11:10-0400 Heart rate 76 /min Félix CHERYL [facility] 07-29-2022 11:10-0400 Mean blood pressure 97 mm[Hg] Félix CHERYL [facility] 07-29-2022 11:10-0400 Respiratory rate 16 /min Félix CHERYL [facility] 07-29-2022 11:10-0400 Systolic blood pressure 133 mm[Hg] Félixjosé DAILYSLIN [facility] 07-29-2022 11:06-0400 Blood Pressure Location Félixjosé DAILYSLIN [facility] 07-29-2022 11:06-0400 Body temperature 97.52 [degF] Félixjosé DAILYSLIN [facility] 07-29-2022 11:06-0400 BP/Pulse Patient Position Félixjosé DAILYSLIN [facility] 07-29-2022 11:06-0400 Diastolic blood pressure 79 mm[Hg] Félixjosé DAILYSLIN [facility] 07-29-2022 11:06-0400 Heart rate 76 /min Félix DAILYSLIN [facility] 07-29-2022 11:06-0400 Mean blood pressure 97 mm[Hg] Félixjosé DAILYSLIN [facility] 07-29-2022 11:06-0400 SaO2% (BldA) [Mass fraction] 96 % Félix DAILYSLIN [facility] 07-29-2022 11:06-0400 Systolic blood pressure 133 mm[Hg] Félixjosé DAILYSLIN [facility] 07-29-2022 08:29-0400 Diastolic blood pressure 84 mm[Hg] Félixjosé DAILYSLIN [facility] 07-29-2022 08:29-0400 Systolic blood pressure 134 mm[Hg] Félixjosé DAILYSLIN [facility] 07-29-2022 07:31-0400 Blood Pressure Location Félixjosé DAILYSLIN [facility] 07-29-2022 07:31-0400 Body temperature 97.7 [degF] Félix DAILYSLIN [facility] 07-29-2022 07:31-0400 BP/Pulse Patient Position Félixjosé DAILYSLIN [facility] 07-29-2022 07:31-0400 Heart rate 72 /min Félix CHERYL [facility] 07-29-2022 07:31-0400 Mean blood pressure 101 mm[Hg] Félix CHERYL [facility] 07-29-2022 07:15-0400 Heart rate 72 /min Félix CHERYL [facility] 07-29-2022 07:15-0400 Mean blood pressure 101 mm[Hg] Félix CHERYL [facility] 07-29-2022 07:15-0400 Respiratory rate 16 /min Félix CHERYL [facility] 07-29-2022 03:21-0400 Body temperature 97.7 [degF] Félix CHERYL [facility] 07-29-2022 03:21-0400 Heart rate 70 /min Félix CHERYL [facility] 07-29-2022 03:21-0400 Mean blood pressure 97 mm[Hg] Félix CHERYL [facility] 07-29-2022 03:21-0400 Respiratory rate 18 /min Félix CHERYL [facility] 07-28-2022 19:29-0400 Heart rate 72 /min Félix CHERYL [facility] 07-28-2022 19:29-0400 Mean blood pressure 92 mm[Hg] Félix CHERYL [facility] 07-28-2022 16:04-0400 Blood Pressure Location Félix LUNA [facility] 07-28-2022 16:04-0400 BP/Pulse Patient Position Félix LUNA [facility] 07-28-2022 00:20-0400 Heart rate 88 /min Félix LUNA [facility] 07-27-2022 21:43-0400 Respiratory rate 17 /min Félix LUNA [facility] 07-27-2022 19:15-0400 Respiratory rate 23 /min Félix LUNA [facility] 07-27-2022 18:49-0400 Respiratory rate 20 /min Félix LUNA [facility] 07-27-2022 17:27-0400 gluc 93 mg/dL Félix LUNA [facility] 07-27-2022 17:27-0400 gluc Félix LUNA [facility] 07-25-2022 08:10-0400 Body temperature 97.88 [degF] Ady Zaina [facility] 07-25-2022 08:10-0400 Diastolic blood pressure 95 mm[Hg] Ady De La Vegaofferson [facility] 07-25-2022 08:10-0400 Heart rate 66 /min Ady De La Vegaofferson [facility] 07-25-2022 08:10-0400 Respiratory rate 16 /min Ady Lundbergpedro [facility] 07-25-2022 08:10-0400 SaO2% (BldA) [Mass fraction] 97 % Ady Christofferson [facility] 07-25-2022 08:10-0400 Systolic blood pressure 190 mm[Hg] Ady Mahajan [facility] 07-12-2022 13:16-0400 Blood Pressure Location Ady Mahajan [facility] 07-12-2022 13:16-0400 Diastolic blood pressure 84 mm[Hg] Ady De La Vegaofferson [facility] 07-12-2022 13:16-0400 Heart rate 75 /min Ady De La Vegaofferson [facility] 07-12-2022 13:16-0400 Respiratory rate 18 /min Ady Mahajan [facility] 07-12-2022 13:16-0400 SaO2% (BldA) [Mass fraction] 97 % Ady Mahajan [facility] 07-12-2022 13:16-0400 Systolic blood pressure 131 mm[Hg] Ady Mahajan [facility] 02-20-2022 15:10-0400 Diastolic blood pressure 80 mm[Hg] Keshia Taylor [facility] 02-20-2022 15:10-0400 Mean blood pressure 94 mm[Hg] Keshia Taylor [facility] 02-20-2022 15:10-0400 Systolic blood pressure 122 mm[Hg] Keshia Taylor [facility] 02-20-2022 14:49-0400 Blood Pressure Location Keshia Taylor [facility] 02-20-2022 14:49-0400 Diastolic blood pressure 92 mm[Hg] Keshia Taylor [facility] 02-20-2022 14:49-0400 Heart rate 98 /min Keshia Taylor [facility] 02-20-2022 14:49-0400 SaO2% (BldA) [Mass fraction] 97 % Keshia Taylor [facility] 02-20-2022 14:49-0400 Systolic blood pressure 136 mm[Hg] Keshia Taylor 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) Start: 09-14-2024 End: 09-14-2024 ambulatory KESHIA TAYLOR Facility:[facility] Start: 07-16-2023 Refill Claritza Garcia MD Work Phone: Hematology/Oncology Comment on above: Refill Request Start: 07-10-2023 End: 07-10-2023 Subsequent hospital visit by physician Mri [facility] (Lg Bore/1.5t) Radiology MRI Comment on above: Mass of breast, unsp ecified laterality [N63.0] Start: 06-05-2023 Telephone encounter Rosita poer PA-C Work Phone: Cancer [facility] Comment on above: Breast MRI Start: 05-30-2023 Telephone encounter Rosita poer PA-C Work Phone: Hematology/Oncology Comment on above: Results Start: 05-23-2023 Telephone encounter Dana Tony RN Work Phone: Cancer [facility] Comment on above: Appointment Confirma tion Start: 05-22-2023 Refill Dana valdovinos RN Work Phone: Hematology/Oncology Comment on above: Refill Request Start: 05-05-2023 Telephone encounter Aminah Potts Hematology/Oncology Comment on above: Patient Update Start: 03-25-2023 Refill Claritza Garcia MD Work Phone: Hematology/Oncology Comment on above: Refill Request Start: 11-26-2022 Refill Rosita Meza PA-C Work Phone: Hematology/Oncology Comment on above: Refill Request Start: 08-29-2022 End: 08-29-[address] CHRISTINE ZULETA Facility:[facility] Start: 08-15-2022 End: 08-15-2022 Patient encounter procedure Ady Mahajan [facility] Start: 08-12-2022 End: 08-13-2022 ambulatory CLARITZA GARCIA Facility:[facility] Start: 08-07-2022 Refill Claritza Garcia MD Work Phone: Hematology/Oncology Comment on above: Refill Request Start: 08-05-2022 End: 08-05-2022 Patient encounter procedure Keshia Taylor [facility] Start: 07-27-2022 End: 07-29-2022 Observation Félix LUNA [facility] Start: 07-25-2022 End: 07-25-2022 Admission to same day surgery center Ady Mahajan [facility] Start: 07-19-2022 End: 07-19-2022 Patient encounter procedure Ady Mahajan [facility] Start: 07-12-2022 End: 07-12-2022 Patient encounter procedure Ady Mahajan [facility] Start: 07-08-2022 End: 07-08-2022 Patient encounter procedure Mallory BOWDEN [facility] Start: 05-29-2022 End: 05-29-2022 Patient encounter procedure Keshia Taylor [facility] Start: 03-20-2022 Refill Claritza Garcia MD Work Phone: Hematology/Oncology Comment on above: Refill Request Start: 02-21-2022 Telephone encounter Claritza dockery MD Work Phone: Hematology/Oncology Comment on above: Records faxed Start: 02-20-2022 End: 02-20-2022 Patient encounter procedure Keshia Taylor [facility] [place] Start: 01-26-2021 End: 01-26-2021 Discharged Recurring [facility]-Covid Vaccine Start: 01-22-2018 End: 01-23-2018 Ambulatory LC HARVEY Facility:[facility] Start: 01-12-2018 End: 01-13-2018 Ambulatory DEFAULT PHYSICIAN Facility:[facility] Procedures Date Procedure Procedure Detail Performing Clinician Start: 07-10-2023 Mri breast without&w ith contrast w/cad bilateral Rosita Meza PA-C Work Phone: Start: 07-25-2022 Cardiac catheterization Ady Mahajan Start: 10-27-2019 Colonoscopy Keshia blanchard Start: 01-22-2018 Anes integ extremiti es ant trunk & perineum nos LOYD SCOTT Start: 01-22-2018 CMPLX RPR TRUNK 2.6-7.5 CM LC HARVEY Start: 10-27-2017 Facial rhytidoplasty Sa elo Taylor Start: 10-27-2017 Reduction mammoplasty Santo Taylor Start: 10-27-2015 Breast surgery (qual ifier value) Keshia Taylor Comment on above: breast infection, th at required surgical intervention breast infection, th at required surgical intervention Start: 10-27-2014 Bypass of stomach Larrykt Taylor Start: 10-27-2014 Hysterectomy Keshiatung Solomon santo Start: 10-27-2012 Lumpectomy of left breast Keshia Taylor Start: 10-27-1970 Tonsillectomy Keshia harmon Plan of Treatment Date Care Activity Detail Author Start: 2033 RSV Vaccine (1 - 1-d ose 75+ series) RSV Vaccine (1 - 1-dose 75+ series) [facility] Start: 09-14-2027 Diabetes Screening Diabetes Screenin g [facility] Start: 09-14-2025 End: 10-14-2025 DBT Breast - bilateral screening WILFRID SCREENING W EL Radiology Routine History of ductal carcinoma in situ (DCIS) of breast Expected: 09/14/2025, Expires: 10/14/2025 [facility] Work Phone: Comment on above: Expected: 09/14/2025 , Expires: 10/14/2025 Start: 09-13-2025 End: 09-13-2025 Follow-up encounter 09/13/2025 2:00 PM EST Visit (SP) Office Hematology/Oncology [address] [place] [address] [place] [address] Jason Buchanan MD [facility] [place] [place] [address] 1 year follow up Hematology/Oncology Comment on above: 1 year follow up Start: 09-13-2025 End: 09-13-2025 Patient encounter procedure 09/13/2025 1:45 PM EST Office Visit [facility] [address] [place] [address] [place] [address] [facility] Comment on above: Lab Start: 06-27-2024 Covid-19 Vaccine ( season) Covid-19 Vaccine ( season) [facility] Start: 06-27-2024 Influenza vaccination Influenza Vacc ine (#1) [facility] Start: 01-01-2024 Advance Directive Discussion Advance Directive Discussion [facility] Start: 01-01-2024 Pneumococcal Vaccine : 65+ (1 of 1 - PCV) Pneumococcal Vaccine: 65+ (1 of 1 - PCV) [facility] Start: 08-29-2023 Screening for malign ant neoplasm of breast Mammogram Screening [facility] Start: 06-27-2023 Covid-19 Vaccine ( season) Covid-19 Vaccine ( season) [facility] Start: 06-27-2023 Influenza vaccination C [facility] Start: 05-30-2023 End: 07-30-2023 CREATININE BLD CREATININE BLD Lab Routine Mass of breast, unspecified laterality Ductal carcinoma in situ (DCIS) of left breast Expected: 05/30/2023, Expires: 07/30/2023 [facility] Work Phone: Comment on above: Expected: 05/30/2023 , Expires: 07/30/2023 Start: 10-27-2022 DEPRESSION ASSESSMENT DEPRESSION ASS ESSMENT [facility] Start: 06-27-2022 Influenza vaccination INFLUENZA (#1) [facility] Start: 10-27-2021 DEPRESSION ASSESSMENT DEPRESSION ASS ESSMENT [facility] Start: 10-03-2021 COVID-19 VACCINE (4 - Booster for Pfizer series) COVID-19 VACCINE (4 - Booster for Pfizer series) [facility] Start: 10-03-2021 COVID-19 VACCINE (4 - Pfizer series) COVID-19 VACCINE (4 - Pfizer series) [facility] Start: 06-28-2021 COVID-19 VACCINE (3 - Booster for Pfizer series) COVID-19 VACCINE (3 - Booster for Pfizer series) [facility] Start: 03-23-2021 COVID-19 VACCINE (3 - Booster for Pfizer series) COVID-19 VACCINE (3 - Booster for Pfizer series) [facility] Start: 2018 RSV Vaccine (1 - 1-d ose 60+ series) RSV Vaccine (1 - 1-dose 60+ series) [facility] Start: 2008 SHINGRIX VACCINE (1 of 2) SHINGRIX VACCINE (1 of 2) [facility] Start: 01-01-2004 COLOGUARD (FIT-DNA) COLOGUARD (FIT-D NA) [facility] Start: 01-01-2004 Colonoscopy COLONOSCOPY [facility] Start: 01-01-2004 COLORECTAL CANCER SCREENING COLORECTAL CANCER SCREENING [facility] Start: 01-01-[address] COLONOGRAPHY [facility] Start: 01-01-2004 DIABETES SCREEN DIABETES SCREEN [facility] Start: 01-01-2004 Diabetes Screening Diabetes Screenin g [facility] Start: 01-01-2004 FECAL OCCULT BLOOD FECAL OCCULT BLOO D [facility] Start: 01-01-2004 Lipid 1996 panel - S asaf or Plasma Lipid Screening [facility] Start: 01-01-2004 Lipid panel Lipid Screening [facility] Start: 01-01-2004 LIPID SCREEN LIPID SCREEN [facility] Start: 01-01-2004 Screening for malign ant neoplasm of colon [facility] Start: 01-01-2004 SIGMOIDOSCOPY SIGMOIDOSCOPY [facility] Start: 1998 Mammography [facility] Start: 1988 HPV TESTING HPV TESTING [facility] Start: 01-01-1980 PAP TESTING PAP TESTING [facility] Start: 1977 Urine microalbumin profile [facility] Start: 1976 Anxiety Screening Anxiety Screening [facility] Start: 1976 Depression Screening Depression Scre ening [facility] Start: 1976 HEPATITIS C SCREENING HEPATITIS C [facility] Start: 1976 Hepatitis C screening Hepatitis C [facility] Start: 1976 HIV SCREENING HIV SCREENING [facility] Start: 1976 HIV screening HIV Screening [facility] Start: 1970 Adult depression screening assessment DEPRESSION SCREENING [facility] End: 06-20-2024 MRI BREAST WO/W IVCON BILATERAL MRI BREAST WO/W IVCON BILATERAL Radiology Routine Mass of breast, unspecified laterality 1 Occurrences starting 05/22/2023 until 06/20/2024 [facility] Work Phone: Comment on above: 1 Occurrences starti ng 05/22/2023 until 06/20/2024 [facility] Immunizations Immunization Date Immunization Notes Care Provider Fa cili 08-08-2021 SARS-CoV-2 (COVID-19 ) mRNA BNT-162b2 vax Keshia Taylor [facility] 07-31-2021 influenza, injectabl e, quadrivalent, preservative free Claritza Garcia MD Work Phone: [facility] 07-31-2021 influenza virus vaccine, unspecified formulation Claritza Garcia MD Work Phone: [facility] 07-28-2021 influenza nasal, unspecified formulation Mri Bore/1.5t) [facility] 07-28-2021 influenza virus vaccine, unspecified formulation Keshia Taylor [facility] 01-26-2021 COVID-19 mRNA,[id number] b2 (Pfizer) [facility] 01-05-2021 COVID-19 mRNA,[id number] b2 (Pfizer) [facility] 12-19-2020 zoster vaccine recombinant Keshia aTylor [facility] 10-11-2020 zoster vaccine recombinant Keshia Taylor [facility] 07-27-2020 influenza nasal, unspecified formulation Mri Bore/1.5t) [facility] 07-27-2020 influenza virus vaccine, unspecified formulation Keshia Taylor [facility] 07-27-2020 Seasonal, quadrivalent, recombinant, injectable influenza vaccine, preservative free Claritza Garcia MD Work Phone: [facility] 08-28-2009 novel [id number], preservative-free, injectable Claritza Garcia MD Work Phone: [facility] NEGATED: Highlighted row has not occurred!08-05-2022 influenza virus vaccine, unspecified formulation Keshia Taylor [facility] Payers Date Payer Category Payer Medicare DEVOTED MEDICARE [employer]OTED HE[employer] [place] HMO [id number] 2024-Present [phone] [address] [place] [address] HMO [id number] 2024 Unknown [id number] 2019 Unknown 2019 Unknown NAI BLUE CARD PPO OOS [id number] 2019-Present [phone] [address] [place] [address] PPO [id number] 1959 Unknown [id number] 1958 Unknown [id number] 1958 Unknown [id number] Self-pay Self Pay [id number] Unknown [id number] Unknown Self Pay [id number] Social History Date Type Detail [facility] Start: 1960 Sex Assigned At Female C [facility] Start: 02-20-2022 End: 09-13-2022 Tobacco smoking status Never smoked tobacco (finding) [facility] Tobacco smoking status Never [facility] Start: 09-13-2022 End: 07-09-2023 Sex Assigned At Female [facility] Start: 12-07-2012 End: 09-13-2022 Tobacco use and exposure Smokeless tobacco non-user [facility] Start: 09-14-2021 End: 09-14-2024 Alcohol intake Current drinker of alcohol (finding) [facility] History of tobacco use Passive smoker [facility] Start: 09-13-2022 End: 07-09-2023 History of Social function [facility] Start: 05-26-2019 Gender identity Identifies as female gender (finding) [facility] Start: 05-26-2019 Sexual orientation Heterosexual (bette dhillon) [facility] Goals Date Patient Goal Desired Activity /State Functional Status Date Assessment Result Facility 08-15-2022 Functional Status N/A [facility] 08-05-2022 Functional Status N/A [facility] 07-27-2022 Functional Status N/A [facility] 07-27-2022 Functional Status [facility] 07-25-2022 Functional Status No [facility] 07-12-2022 N/A [facility] Clinical Notes 02-20-2022 to 09-14-2024 Patient InstructionsVenJason gonzales MD - 09/14/2024 2:00 PM Debra Doss RN - 07/10/2023 12:40 PM Dani Hawkins RT(R) - 07/10/2023 12:40 PM EDT Note Date & Type Note Facility 09-14-2024 Instructions Jason Buchanan MD - 09/14/2024 2:06 PM EST Labs today Mammogram next year F/u in 1 year documented in this encounter [facility] 09-14-2024 History of Presen t illness Narrative Images from the original note were not included. Some of the elements of this note have been copied from previous progress note dated 07/22/23. All the information has been reviewed carefully. 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 HISTORY OF PRESENT ILLNESS: Tiffany Tolbert is a 62 year old woman who presents in follow up of above 08/2011 : Abnormal mammogram noted- recommend 6 month follow-up 02/2012 : six month follow completed recommended another six-month follow-up 09/2012 : Biopsy with subsequent lumpectomy notes DCIS of the left breast 01/2013 : Complete adjuvant radiation 04/2013 : Starts adjuvant tamoxifen 10/2017 : BIRADS 4 mammogram of left breast recommend biopsy 11/2017 : no malignancy identified (see below) 12/2017 : Had infection around biopsy site, requires antibiotics and revision, has since healed 04/2018 : completes therapy with tamoxifen 06/2018 : Mammogram recommended biopsy again : pathology without evidence of recurrence or malignancy She felt a lump in her breast 04/2023 and that led to a mammogram and US which recommended an MRI which she had completed. She is doing well otherwise. Visit 09/14/24: - Mammogram on 08/24/24 is normal - Doing well - No major complains - Had 2 colonoscopies. Last one was 5 yrs ago. PAST MEDICAL HISTORY Diagnosis Date Hypercholesteremia Hypertension PAST SURGICAL HISTORY Procedure Laterality Date HYSTERECTOMY HX 03/06/2015 LUMPECTOMY/RADIOTHERAPY DIAG MAMM/A10 REMOVE THORACIC LYMPH NODES TONSILLECTOMY HX Review of Social History includes: Tobacco Use: Never Alcohol Use: Yes FAMILY HISTORY Problem Relation Age of Onset Heart Mother Stroke Mother Breast Cancer Mother 72 Heart Father Diabetes Father Cancer Father skin cancer Stroke Father Hypertension Mother Hypertension Father Diabetes Brother Hypertension Brother Current Outpatient Medications Medication Sig Dispense Refill venlafaxine ER (EFFEXOR XR) 75 mg 24 hr capsule Take 1 capsule by mouth once daily [address] (PROTONIX) 20 mg tablet take 1 tablet by mouth twice daily as directed ADULT ASPIRIN ORAL Take 81 mg by mouth. metoprolol tartrate, short acting, (LOPRESSOR) 25 mg tablet Take 25 mg by mouth twice daily. atorvastatin (LIPITOR) 40 mg tablet Take 40 mg by mouth once daily. MOUNJARO 7.5 mg/0.5 mL pen injector INJECT 1 ONCE A WEEK DOSOKAP 5,500-200 unit-mcg tab TAKE 1 TABLET BY MOUTH ONCE DAILY vitamin B complex (VITAMIN B-50 COMPLEX ORAL) Take by mouth once daily. alendronate (FOSAMAX) 35 mg tablet MAGNESIUM ORAL Take 250 mg by mouth. naproxen (NAPROSYN) 250 mg tablet Take by mouth. melatonin 3 mg tablet Take 3 mg by mouth at bedtime as needed. ubidecarenone Q-10 (COENZYME Q-10) 10 mg cap Take 10 mg by mouth once daily. amLODIPine (NORVASC) 5 mg tablet Take 5 mg by mouth once daily. CALCIUM CARBONATE/VITAMIN D3 (CALCIUM 500 + D ORAL) Take by mouth. MULTIVITAMIN (VITAMIN DAILY ORAL) Take by mouth. ALPRAZolam (XANAX) 0.25 mg tablet Take 0.25 mg by mouth at bedtime as needed. lisinopril (ZESTRIL, PRINIVIL) 20 mg tablet Take 20 mg by mouth once daily. No current facility-administered medications for this visit. Review Of Systems: Constitutional: No recent fevers chills or sweats Respiratory: No cough or hemoptysis. Denies dyspnea Cardiovascular: No chest pain or palpitations. No leg swelling GI: No nausea, vomiting, diarrhea or GI bleed. Skin: No rash or lesions. Neurologic: No focal weakness or sensory changes. Psychiatric:normal mood and affect Hematopoietic: No easy bruising or enlarged lymphadenopathy. : No frequency or dysuria. No abnormal bleeding MSk: no recent cramping Breast: no skin changes or mass Physical Examination: [facility] 02/08/2013 General: Alert and oriented, no distress, pleasant and cooperative. Heart: Regular, normal S1 and S2, no murmurs, rubs, or gallops. Lungs: Clear to auscultation bilaterally. Abdomen: Benign. No hepatosplenomegaly. Extremities: Feet/ankles without edema, posterior tibial pulses full and symmetrical Lymph: no cervical supraclavicular or axillary adenopathy Breast: right: no masses or skin changes Left: scar is well healed in left axilla, no masses or skin changes PATHOLOGY 10/2012 Lumpectomy IMAGING: MRI Bilateral Breast 06/2023: IMPRESSION: BENIGN FINDING 1. No MRI evidence of malignancy. 2. Postsurgical scarring and small seroma in the left axilla at site of prior axillary lymph node surgery disease and palpable area of concern), without suspicious features or associated abnormal enhancement. No axillary lymphadenopathy. 3. Post lumpectomy changes in the 3-4:00 left breast, without abnormal enhancement. Follow-up with ACR/NCCN guidelines. Clinical followup and management of any clinical concerns is also recommended. ASSESSMENT/PLAN: Tato Tolbert is a 62 year old female with left breast DCIS. She is s/p lumpectomy, radiation and has completed 5 years of tamoxifen. she had a mastopexy with resolving infection which is currently resolved. MRI Breast based on Mammogram recs 06/2023 benign. Mammogram in Jul 2024 is normal. Ordered mammogram for next year. Check CBC, CMP F/u with PCP See back in 1 year with repeat mammograms Jason Buchanan MD. CC: Alexandra Castaneda MD I spent a total of 20 minutes on the date of the service which included preparing to see the patient, [id number] patient care, obtaining and/or reviewing separately obtained history, performing a medically appropriate examination, counseling and educating the patient/family/caregiver and ordering medications, tests, or procedures. documented in this encounter [facility] 09-14-2024 Note HNO ID: [id number] Author: JASON BUCHANAN MD Service: ? Author Type: Physician Type: Progress Notes Filed: 09/14/2024 14:28 Note Text: Some of the elements of this note have been copied from previous progress note dated 07/22/23. All the information has been reviewed carefully. 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 HISTORY OF PRESENT ILLNESS: Tiffany Tolbert is a 62 year old woman who presents in follow up of above 08/2011 : Abnormal mammogram noted- recommend 6 month follow-up 02/2012 : six month follow completed recommended another six-month follow-up 09/2012 : Biopsy with subsequent lumpectomy notes DCIS of the left breast 01/2013 : Complete adjuvant radiation 04/2013 : Starts adjuvant tamoxifen 10/2017 : BIRADS 4 mammogram of left breast recommend biopsy 11/2017 : no malignancy identified (see below) 12/2017 : Had infection around biopsy site, requires antibiotics and revision, has since healed 04/2018 : completes therapy with tamoxifen 06/2018 : Mammogram recommended biopsy again : pathology without evidence of recurrence or malignancy She felt a lump in her breast 04/2023 and that led to a mammogram and US which recommended an MRI which she had completed. She is doing well otherwise. Visit 09/14/24: - Mammogram on 08/24/24 is normal - Doing well - No major complains - Had 2 colonoscopies. Last one was 5 yrs ago. PAST MEDICAL HISTORY Diagnosis Date Hypercholesteremia Hypertension PAST SURGICAL HISTORY Procedure Laterality Date HYSTERECTOMY HX 03/06/2015 LUMPECTOMY/RADIOTHERAPY DIAG MAMM/A10 REMOVE THORACIC LYMPH NODES TONSILLECTOMY HX Review of Social History includes: Tobacco Use: Never Alcohol Use: Yes FAMILY HISTORY Problem Relation Age of Onset Heart Mother Stroke Mother Breast Cancer Mother 72 Heart Father Diabetes Father Cancer Father skin cancer Stroke Father Hypertension Mother Hypertension Father Diabetes Brother Hypertension Brother Current Outpatient Medications Medication Sig Dispense Refill venlafaxine ER (EFFEXOR XR) 75 mg 24 hr capsule Take 1 capsule by mouth once daily [address] (PROTONIX) 20 mg tablet take 1 tablet by mouth twice daily as directed ADULT ASPIRIN ORAL Take 81 mg by mouth. metoprolol tartrate, short acting, (LOPRESSOR) 25 mg tablet Take 25 mg by mouth twice daily. atorvastatin (LIPITOR) 40 mg tablet Take 40 mg by mouth once daily. MOUNJARO 7.5 mg/0.5 mL pen injector INJECT 1 ONCE A WEEK DOSOKAP 5,500-200 unit-mcg tab TAKE 1 TABLET BY MOUTH ONCE DAILY vitamin B complex (VITAMIN B-50 COMPLEX ORAL) Take by mouth once daily. alendronate (FOSAMAX) 35 mg tablet MAGNESIUM ORAL Take 250 mg by mouth. naproxen (NAPROSYN) 250 mg tablet Take by mouth. melatonin 3 mg tablet Take 3 mg by mouth at bedtime as needed. ubidecarenone Q-10 (COENZYME Q-10) 10 mg cap Take 10 mg by mouth once daily. amLODIPine (NORVASC) 5 mg tablet Take 5 mg by mouth once daily. CALCIUM CARBONATE/VITAMIN D3 (CALCIUM 500 + D ORAL) Take by mouth. MULTIVITAMIN (VITAMIN DAILY ORAL) Take by mouth. ALPRAZolam (XANAX) 0.25 mg tablet Take 0.25 mg by mouth at bedtime as needed. lisinopril (ZESTRIL, PRINIVIL) 20 mg tablet Take 20 mg by mouth once daily. No current facility-administered medications for this visit. Review Of Systems: Constitutional: No recent fevers chills or sweats Respiratory: No cough or hemoptysis. Denies dyspnea Cardiovascular: No chest pain or palpitations. No leg swelling GI: No nausea, vomiting, diarrhea or GI bleed. Skin: No rash or lesions. Neurologic: No focal weakness or sensory changes. Psychiatric:normal mood and affect Hematopoietic: No easy bruising or enlarged lymphadenopathy. : No frequency or dysuria. No abnormal bleeding MSk: no recent cramping Breast: no skin changes or mass Physical Examination: LMP 02/08/2013 General: Alert and oriented, no distress, pleasant and cooperative. Heart: Regular, normal S1 and S2, no murmurs, rubs, or gallops. Lungs: Clear to auscultation bilaterally. Abdomen: Benign. No hepatosplenomegaly. Extremities: Feet/ankles without edema, posterior tibial pulses full and symmetrical Lymph: no cervical supraclavicular or axillary adenopathy Breast: right: no masses or skin changes Left: scar is well healed in left axilla, no masses or skin changes PATHOLOGY 10/2012 Lumpectomy IMAGING: MRI Bilateral Breast 06/2023: IMPRESSION: BENIGN FINDING 1. No MRI evidence of malignancy. 2. Postsurgical scarring and small seroma in the left axilla at site of prior axillary lymph node surgery disease and palpable area of concern), without suspicious features or associated abnormal enhancement. No axillary lymphadenopathy. 3. Post lumpectomy changes in the 3-4:00 left breast, without abnormal enhancement. Follow-up with ACR/NCCN guidelines. Clinical followup and management of any clinical concerns is also recommended. A (more content not included)... [facility] 07-10-2023 History of Presen t illness Narrative Radiology Service Progress Note DATE OF SERVICE: July 10, 2023 TIME: 12:44 PM PATIENT WEIGHT: 148LBS PATIENT IDENTITY VERIFICATION COMPLETED USING TWO (2) STANDARD IDENTIFIERS: Name and Date of confirmed by patient verbally. FALL SCREENING: Has the patient had 2 falls in the last year or 1 fall with injury or currently using an Ambulatory Assistive Device (Walker, Cane, Wheelchair, Crutches, etc.)? No PATIENT GENDER DATA: Female. status: : No status: NO. ALLERGIES: Reviewed and unchanged CONTRAST ALLERGY: No EXAM: MRI - CONTRAST TYPE: GROUP II IV SITE: Ambulatory: A peripheral IV was started in the Right antecubital site with a Angio cath: 22 gauge. and A Saline lock was inserted per protocol IV SITE APPEARANCE: Clean,Dry and Intact SIGNATURE: Debra Cole RN PATIENT NAME: Tato Tolbert DATE: July 10, 2023 TIME: 12:44 PM Radiology Service Progress Note PATIENT NAME: Tato Tolbert DATE OF SERVICE: July 10, 2023 TIME: 12:37 PM PATIENT IDENTITY VERIFICATION COMPLETED USING TWO (2) IDENTIFIERS: Name and Date of confirmed by patient verbally and Name and Date of confirmed by identification band FALL SCREENING: Has the patient had 2 falls in the last year or 1 fall with injury or currently using an Ambulatory Assistive Device (Walker, Cane, Wheelchair, Crutches, etc.)? No PATIENT GENDER DATA: Female. status: : No status: N/A PATIENT RELEVANT IMPLANT DATA REVIEWED: Yes RADIOLOGY DEPARTMENT: MR; Exam(s) Completed: Chest: Breast PERIPHERAL IV DATA: Site assessment: Clean,Dry and Intact, Site disposition Discontinued SIGNED BY: RT Jw(R) July 10, 2023 12:37 PM documented in this encounter [facility] 06-12-2023 Miscellaneous Notes Pt called regarding MRI appt, she had not heard back. Pt is scheduled 07/10/23 at [facility]. Information provided and pt is agreeable to POC. She denies any further questions or concerns at this time. Aminah Bradshaw, RN Patient called in today stated her insurance told her she is out of network with [facility] and the only place she can have her MRI done Is at [facility], I had to cancel her MRI at [facility] and working on getting her MRI triaged for [facility] Done Rosita Meza PA-C Rosita can you place Creatine orders? She is scheduled for 06/10 at 1:00 At [facility] MRI breast peer to peer complete and approved Auth #[id number] Valid 05/30/2023-07/28/2023 Rosita Meza PA-C documented in this encounter [facility] 06-05-2023 Miscellaneous Notes MRI BREAST TRIAGE FORM FAX: [id number] DATE: June 05, 2023 TIME: 3:08 PM TRACKING #Arron Godwin Tiffany Tolbert, 62 year old Home phone: [phone] (home) BREAST TO BE SCANNED: BILATERAL DIAGNOSIS or REASON FOR EXAM: DCIS with new breast mass PREVIOUS EXAMS: Patient has Mammogram and Ultrasound both in [facility] and the [facility] ORDERING PHYSICIAN: Rosita eMza PHONE/PAGER: [phone] DOCTOR'S MUSEUM LIBRARIAN or NURSE: Dana Murray Pole Lift Operator Dana Tony Nurse Pt is going out of town Jun 29 documented in this encounter [facility] 06-04-2023 Miscellaneous Notes She is scheduled for MRI at [facility] on 06/10/23. Call placed to pt to review mammogram/US results. Pt would like to have her MRI's done at [facility]. MM: please sign pending orders PSS: please schedule and call pt with date and time. Thanks Dana Tony RN documented in this encounter [facility] 05-26-2023 Miscellaneous Notes Auth still pending as of 05/26 Patient insurance requires Auth, I tried to do the auth and they denied it, so I am sending information for clinical review. Call placed to pt to review mammogram/US results. Pt would like to have her MRI's done at [facility]. MM: please sign pending orders PSS: please schedule and call pt with date and time. Thanks Dana Tony RN documented in this encounter [facility] 05-05-2023 Miscellaneous Notes Patient is called and scheduled for Friday PSS: Please call to schedule pt Aminah Bradshaw RN She can come in for evaluation Pt found dime size lump, L Breast, near axilla along side one of her surgical scars. Just found over the weekend, Mammogram done in Jul 2022 and next scheduled Jul 2023 prior to her yearly RV. CHERY/MM: Please advise Aminah Bradshaw RN documented in this encounter [facility] 08-05-2022 Hospital Discharg e instructions Patient Education 08/05/2022 13:32:17 Hypertension, Adult Hypertension, Adult High blood pressure (hypertension) is when the force of blood pumping through the arteries is too strong. The arteries are the blood vessels that carry blood from the heart throughout the body. Hypertension forces the heart to work harder to pump blood and may cause arteries to become narrow or stiff. Untreated or uncontrolled hypertension can cause a heart attack, heart failure, a stroke, kidney disease, and other problems. A blood pressure reading consists of a higher number over a lower number. Ideally, your blood pressure should be below 120/80. The first ( top ) number is called the systolic pressure. It is a measure of the pressure in your arteries as your heart beats. The second ( bottom ) number is called the diastolic pressure. It is a measure of the pressure in your arteries as the heart relaxes. What are the causes? The exact cause of this condition is not known. There are some conditions that result in or are related to high blood pressure. What increases the risk? Some risk factors for high blood pressure are under your control. The following factors may make you more likely to develop this condition: Smoking. Having type 2 diabetes mellitus, high cholesterol, or both. Not getting enough exercise or physical activity. Being overweight. Having too much fat, sugar, calories, or salt (sodium) in your diet. Drinking too much alcohol. Some risk factors for high blood pressure may be difficult or impossible to change. Some of these factors include: Having chronic kidney disease. Having a family history of high blood pressure. Age. Risk increases with age. Race. You may be at higher risk if you are . Gender. Men are at higher risk than women before age 45. After age 65, women are at higher risk than men. Having obstructive sleep apnea. Stress. What are the signs or symptoms? High blood pressure may not cause symptoms. Very high blood pressure (hypertensive crisis) may cause: Headache. Anxiety. Shortness of breath. Nosebleed. Nausea and vomiting. Vision changes. Severe chest pain. Seizures. How is this diagnosed? This condition is diagnosed by measuring your blood pressure while you are seated, with your arm resting on a flat surface, your legs uncrossed, and your feet flat on the floor. The cuff of the blood pressure monitor will be placed directly against the skin of your upper arm at the level of your heart. It should be measured at least twice using the same arm. Certain conditions can cause a difference in blood pressure between your right and left arms. Certain factors can cause blood pressure readings to be lower or higher than normal for a short period of time: When your blood pressure is higher when you are in a health care provider's office than when you are at home, this is called white coat hypertension. Most people with this condition do not need medicines. When your blood pressure is higher at home than when you are in a health care provider's office, this is called masked hypertension. Most people with this condition may need medicines to control blood pressure. If you have a high blood pressure reading during one visit or you have normal blood pressure with other risk factors, you may be asked to: Return on a different day to have your blood pressure checked again. Monitor your blood pressure at home for 1 week or longer. If you are diagnosed with hypertension, you may have other blood or imaging tests to help your health care provider understand your overall risk for other conditions. How is this treated? This condition is treated by making healthy lifestyle changes, such as eating healthy foods, exercising more, and reducing your alcohol intake. Your health care provider may prescribe medicine if lifestyle changes are not enough to get your blood pressure under control, and if: Your systolic blood pressure is above 130. Your diastolic blood pressure is above 80. Your personal target blood pressure may vary depending on your medical conditions, your age, and other factors. Follow these instructions at home: Eating and drinking Eat a diet that is high in fiber and potassium, and low in sodium, added sugar, and fat. An example eating plan is called the DASH (Dietary Approaches to Stop Hypertension) diet. To eat this way: ?Eat plenty of fresh fruits and vegetables. Try to fill one half of your plate at each meal with fruits and vegetables. ?Eat whole grains, such as whole-wheat pasta, brown rice, or whole-grain bread. Fill about one fourth of your plate with whole grains. ?Eat or drink low-fat dairy products, such as skim milk or low-fat yogurt. ?Avoid fatty cuts of meat, processed or cured meats, and poultry with skin. Fill about one fourth of your plate with lean proteins, such as fish, chicken without skin, beans, eggs, or tofu. ?Avoid pre-made and processed foods. These tend to be higher in sodium, added sugar, and fat. Reduce your daily sodium intake. Most people with hypertension should eat less than 1,500 mg of sodium a day. Do not drink alcohol if: ?Your health care provider tells you not to drink. ?You are , may be , or are planning to become . If you drink alcohol: ?Limit how much you use to: ?0 1 drink a day for women. ?0 2 drinks a day for men. ?Be aware of how much alcohol is in your drink. In the [place] one drink equals one 12 oz bottle of beer (355 mL), one 5 oz glass of wine (148 mL), or one 1 oz glass of hard liquor (44 mL). Lifestyle Work with your health care provider to maintain a healthy body weight or to lose weight. Ask what an ideal weight is for you. Get at least 30 minutes of exercise most days of the week. Activities may include walking, swimming, or biking. Include exercise to strengthen your muscles (resistance exercise), such as Pilates or lifting weights, as part of your weekly exercise routine. Try to do these types of exercises for 30 minutes at least 3 days a week. Do not use any products that contain nicotine or tobacco, such as cigarettes, e-cigarettes, and chewing tobacco. If you need help quitting, ask your health care provider. Monitor your blood pressure at home as told by your health care provider. Keep all follow-up visits as told by your health care provider. This is important. Medicines Take [id number] and prescription medicines only as told by your health care provider. Follow directions carefully. Blood pressure medicines must be taken as prescribed. Do not skip doses of blood pressure medicine. Doing this puts you at risk for problems and can make the medicine less effective. Ask your health care provider about side effects or reactions to medicines that you should watch for. Contact a health care provider if you: Think you are having a reaction to a medicine you are taking. Have headaches that keep coming back (recurring). Feel dizzy. Have swelling in your ankles. Have trouble with your vision. Get help right away if you: Develop a severe headache or confusion. Have unusual weakness or numbness. Feel faint. Have severe pain in your chest or abdomen. Vomit repeatedly. Have trouble breathing. Summary Hypertension is when the force of blood pumping through your arteries is too strong. If this condition is not controlled, it may put you at risk for serious complications. Your personal target blood pressure may vary depending on your medical conditions, your age, and other factors. For most people, a normal blood pressure is less than 120/80. Hypertension is treated with lifestyle changes, medicines, or a combination of both. Lifestyle changes include losing weight, eating a healthy, low-sodium diet, exercising more, and limiting alcohol. This information is not intended to replace advice given to you by your health care provider. Make sure you discuss any questions you have with your health care provider. Document Released: 10/13/2006 Document Revised: 06/23/2019 Document Reviewed: 06/23/2019 Elsevier Patient Education 2019 [employer]. [facility] 07-29-2022 Hospital Discharg e instructions Patient Education 07/29/2022 15:01:18 Core Measures: Stroke (Cerebrovascular Accident) [facility], (Custom) Stroke (Cerebrovascular Accident) A stroke is acute of brain tissue, and it is a neurologic emergency. A stroke can cause permanent loss of function of the central nervous system (brain). If the symptoms of a stroke end without complications in 24 hours, it is diagnosed as a transient ischemic attack (TIA). If the symptoms are not resolved within 24 hours, it is defined as a stroke. CAUSES A stroke is caused by a decrease of oxygen supply to an area of your brain. It is usually the result of a small blood clot or hardening of the arteries. Blockages in, or damage to, the carotid arteries leading to the brain can also cause a stroke. Bleeding in the brain can cause, or accompany, a stroke. SYMPTOMS These symptoms usually develop suddenly (or may be newly present upon awakening from sleep): Loss of vision. Double vision. Confusion. Numbness or weakness on one side of the face or body. Inability to speak (aphasia). DIAGNOSIS Your caregiver can often determine the presence or absence of a stroke based on your symptoms, history, and examination. A CT scan of the brain is usually performed to confirm the stroke, look for causes, and determine the severity. Other tests may be done to find the cause of the stroke, including: An EKG and heart monitoring. An echocardiogram (ultrasound evaluation of the heart). An ultrasound evaluation of your carotid arteries. Determination of blood oxygen level and blood tests. PREVENTION The likelihood of a stroke can be decreased by appropriate treatment of high blood pressure, high cholesterol, diabetes, and by stopping smoking. RISK FACTORS: If you have been told by your doctor or nurse practitioner that you have any of the following risk factors for stroke, work with your health critical care physician assistant to control them. High Blood Pressure: High blood pressure is one of the main causes of stroke. It is the most important risk factor to control. Take your blood pressure medication, lose weight, increase your activity, and limit your salt intake to help control your blood pressure.Take your your blood pressure and write it down and then take them to your next doctor's appointment. Smoking: If you smoke: QUIT! We can help. Please call [facility] at [phone] ([facility]), or [phone], ext. [phone] Diabetes: Work with your healthcare professional to keep your blood sugar under control. Check your blood sugar and take the results to your next doctor's visit. Take your medications as directed. Eating a healthy diet and exercising will also help keep your diabetes under control. For information on [facility] please call, . Carotid or other Artery Diseases: The carotid arteries in your neck carry blood to the brain. A stroke can be caused by a blood clot blocking an artery that has been damaged by a fatty buildup inside the artery wall. Discuss ways to manage this with your health care provider. Atrial Fibrillation (A Fib): In A fib, your heart does not have a normal beat. This may allow clots to form and puts you at a greater risk for having a stroke. Work with your health care provider to control your A fib. Your doctor may order special medication that helps prevent clots from forming. High blood cholesterol or high blood fats: High cholesterol increases your risk of stroke. Exercise regularly, but talk to your health care provider first. A diet low in fat and cholesterol can help. If you have any questions about a low fat, low cholesterol diet, you can call our [employer] campground hand at [phone] Ext. [phone]. The goal for total cholesterol is less than 200, and for LDL or the bad cholesterol is less than 100. Lifestyle Management: You increase your risk of stroke if you are overweight or obese, are not very active, or drink too much alcohol. Enjoy a diet rich in fruits and vegetables. Exercise regularly and drink alcohol in moderation or no more than two drinks a day for men and no more than one drink a day for non- women, or don't drink at all. This will help decrease your risk of stroke. Oral Contraceptives: Taking control pills or the pill can be a risk factor for stroke especially if you smoke. Discuss using the oral contraceptives and your risk of stroke with your health critical care physician assistant. TREATMENT TIME IS OF THE ESSENCE! Medications to dissolve a blood clot can only be used within four and a half hours of the onset of symptoms. After that time, treatment of stroke depends on duration of symptoms, severity, and cause. Medications and diet measures may be used to address diabetes, high blood pressure, and other risk factors. Physical therapy, speech therapy, and occupational therapy specialists will assess you and work to improve any functions impaired by the stroke. Measures will be taken to prevent short and nursing home complications, including aspiration pneumonia, blood clots in the legs, bedsores, and falls. HOME CARE INSTRUCTIONS Care at home after a stroke can be complicated. Medications Blood thinners may be used to prevent another stroke. Blood thinners need to be used exactly as instructed. Medicines may also be used to control risk factors for a stroke. Be sure you understand all your medication instructions. It is very important to not run out of your medicine. Get more while you still have a one-week supply. Do not stop taking your medicine without speaking to your healthcare professional. Take all of your medications or an updated list of your medications to all of your doctor's appointments. Physical, occupational, and speech therapy Ongoing therapy is often necessary to maximize recovery after a stroke. If you have been advised to use a walker or a cane, use it at all times. Be sure you keep your therapy appointments. Diet Certain diets may be prescribed to address high blood pressure, high cholesterol, or diabetes. Foods may need to be a special consistency (soft, pureed, small bites) to avoid food going into your lungs or choking. Home safety A safe home environment is important to reduce the risk of falls. Your caregiver may arrange for specialists to evaluate your home. Grab bars in the bedroom and bathroom are often important. Your caregiver may arrange for special equipment to be used at home, such as raised toilets and a seat for the shower. It s important to know and control your risk factors, but it is also important to recognize the signs and symptoms of stroke/TIA and know what to do: Call 911 if any of these things happen: Sudden numbness or weakness of the face, arm, or leg especially on one side of the body. Sudden confusion, trouble speaking, or understanding. Sudden trouble seeing in one or both eyes. Sudden trouble walking, dizziness, loss of balance or coordination Sudden severe headache with no known cause * It is very important for you to follow-up with your Primary Care Doctor and your Neurologist after you go home. Make sure that you keep your doctor visits. Remember: TIME LOST is BRAIN LOST Resources: for more information on strokes, log onto www.[email or web address] or www.strokeassociation.org or call the [place] [employer] at . Revised 10/2018 Follow Up Care 07/27/2022 17:27:12 With:Patrica Gardner MD, NEU Address: [address] [place] [phone]- Business (1) When:08/12/2022 13:50:00 With:Keshia Taylor Address: [address] [place] [phone] Business (2) When:08/05/2022 13:00:00 [facility] 07-29-2022 Evaluation + Plan note Extrac reina from: Title:Discharge Note Author:ASHLEY ALEJANDRA, Poly Judd e:07/29/22 stable Discharge To, Anticipated II - Home with responsible caregiver Transported by, Anticipated - Family Discharge Diet(s): Low Sodium- 2000 mg (07/29/22 11:49:00) Prescriptions Keflex 500 mg Cap, 500 mg= 1 cap(s), Oral, TID Home alendronate 35 mg oral tablet, 35 mg= 1 tab(s), Oral, qWeek aspirin 81 mg oral capsule, 81 mg= 1 cap(s), Oral, MonTueSat atorvastatin 40 mg Tab, 40 mg= 1 tab(s), Oral, Daily B-12 1000 mcg oral tablet, 1000 mcg= 1 tab(s), Oral, WedSun, Unable to obtain Co-Q10, 1 tab, Oral, TID Effexor XR, 75 mg, Oral, Daily Essential oil tab (Immune), 1 tab, Oral, Daily Flonase, 1 spray(s), Nasal, Daily lisinopril, 20 mg, Oral, Daily magnesium gluconate 250 mg oral tablet, 250 mg= 1 tab(s), Oral, Daily melatonin, 10 mg, Oral, Once a day (at bedtime), Not taking Metoprolol tartrate 25 mg Tab, 25 mg= 1 tab(s), Oral, BID, Not taking Mounjaro 5 mg/0.5 mL subcutaneous solution Multi Vitamin+, 1 tab, Oral, Daily naproxen 250 mg tab, 2 tab(s), Oral, q12hr Norvasc 10 mg Tab, See Instructions orphenadrine 100 mg ER Tab, 100 mg= 1 tab(s), Oral, BID Prevagen Extra Strength, 50 mcg, Oral, Daily Tessalon 100 mg Cap, 100 mg= 1 cap(s), Oral, TID, Not taking Xanax 0.25 mg Tab, 0.25 mg= 1 tab(s), Oral, TID With When Contact Information Jj ALEJANDRA, ELISHA Patterson Within 2 to [address] [id number]- Additional Instructions: Core Measures: Stroke (Cerebrovascular Accident) [facility], (Custom) Extracted from: Title:APSO Note-neurology Author:Ana KERR, Jake prince Date:07/29/22 Mild intermittently-noticed language issues since cardiac catheterization on . Some mild intermittent confusion/disorientation as well. No evidence for iatrogenic embolic ischemic stroke on MRI. All her presenting symptoms have seemingly resolved, aside from a mild headache which lingers slightly. No other recommendations at this time and okay for discharge. 1. Acute metabolic encephalopathy (G93.41: Metabolic encephalopathy) 2. Acute headache (R51.9: Headache, unspecified) 3. Urinary tract infection (N39.0: Urinary tract infection, site not specified) 4. Hypertensive urgency (I16.0: Hypertensive urgency) 5. Hypokalemia (E87.6: Hypokalemia) 6. Metabolic acidosis, increased anion gap (E87.29: Other acidosis) 7. Dehydration (E86.0: Dehydration) 8. Coronary artery disease (I25.10: Atherosclerotic heart disease of kaibab coronary artery without angina pectoris) 9. Hyperlipidemia (E78.5: Hyperlipidemia, unspecified) 10. Obstructive sleep apnea (G47.33: Obstructive sleep apnea (adult) (pediatric)) 11. Allergic rhinitis (J30.9: Allergic rhinitis, unspecified) 12. Depression (F32.A: Depression, unspecified) 13. Obesity (E66.9: Obesity, unspecified) 14. 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 DVT prophylaxis (Z29.9: Encounter for prophylactic measures, unspecified) Extracted from: Title:APSO Note Author:LEX ALEJANDRA, Mbanefo Date: 61-year-old female with history of coronary artery disease, hypertension, hyperlipidemia, obstructive sleep apnea, depression, allergic rhinitis presented with complaints of bilateral temporal headache, confusion and slurred speech and was admitted with acute metabolic encephalopathy secondary to urinary tract infection, to rule out stroke, headache, hypokalemia, hypertensive urgency, metabolic acidosis. 1. Acute metabolic encephalopathy (G93.41: Metabolic encephalopathy) Acute metabolic encephalopathy multifactorial secondary to hypertensive urgency and UTI. Resolved. Patient is back to her baseline mentation. MRI of the brain pending. Neurology consult pending. Ordered: Sbsq Observation Care/Day Moderate 25 min 76178 2. Acute headache (R51.9: Headache, unspecified) Persistent headache. Patient denies history of migraine. Started patient on morphine as needed as Toradol did not help much. Ordered: ketorolac, 15 mg = 1 mL, Injection, IV Push, q6hr PRN Headache, Stop date 08/01/22 18:44:00 EDT, Routine, Start date 07/28/22 7:45:00 EDT, 07/28/22 7:45:00 EDT Sbsq Observation Care/Day Moderate 25 min [id number] 3. Urinary tract infection (N39.0: Urinary tract infection, site not specified) Continue on IV ceftriaxone pending final urine culture result. Ordered: ceftriaxone + Sodium Chloride 0.9% intravenous solution 50 mL, 1,000 mg = 1 EA, Injection, IV Piggyback, Bedtime for 14 day(s), Stop date 08/11/22 20:59:00 EDT, Routine, Start date 07/28/22 21:00:00 EDT, 100 mL/hr, Infuse over 30 minute(s) Sbsq Observation Care/Day Moderate 25 min 71374 4. Hypertensive urgency (I16.0: Hypertensive urgency) Present on admission. Resolved. Continue lisinopril. Continue on IV hydralazine as needed. Ordered: Sbsq Observation Care/Day Moderate 25 min 29578 5. Hypokalemia (E87.6: Hypokalemia) Potassium level 3.0. Replaced with oral potassium. Ordered: Basic Metabolic Panel Sbsq Observation Care/Day Moderate 25 min 25533 6. Metabolic acidosis, increased anion gap (E87.29: Other acidosis) Secondary to poor oral intake. Improving. Repeat BMP in AM. On IV fluid. Ordered: Basic Metabolic Panel 7. Dehydration (E86.0: Dehydration) Treating with IV fluid. 8. Coronary artery disease (I25.10: Atherosclerotic heart disease of kaibab coronary artery without angina pectoris) Mild coronary artery disease. Continue on aspirin, lisinopril. Beta-mandi temporarily on hold. 9. Hyperlipidemia (E78.5: Hyperlipidemia, unspecified) On Lipitor. 10. Obstructive sleep apnea (G47.33: Obstructive sleep apnea (adult) (pediatric)) Supportive care. Was on CPAP before. 11. Allergic rhinitis (J30.9: Allergic rhinitis, unspecified) Supportive care. On Flonase. 12. Depression (F32.A: Depression, unspecified) On Effexor. 13. Obesity (E66.9: Obesity, unspecified) Status post gastric bypass surgery. Supportive care. Recommend therapeutic lifestyle modification changes. 14. History of ductal carcinoma in situ of breast (Z86.000: Personal history of in-situ neoplasm of breast) Status post radiation treatment and tamoxifen. 15. DVT prophylaxis (Z29.9: Encounter for prophylactic measures, unspecified) Heparin. Disposition: Pending neurology evaluation and MRI of the brain. Orders: morphine, 2 mg = 1 mL, Injection, IV Push, q6hr PRN Pain for 5 day(s), Stop date 08/02/22 7:57:00 EDT, Routine, Start date 07/28/22 7:58:00 EDT, 07/28/22 7:58:00 EDT potassium chloride, 40 mEq = 2 tab(s), Tab-ER, Oral, Once, Stop date 07/28/22 8:00:00 EDT, Routine, Start date 07/28/22 8:00:00 EDT, 07/28/22 7:44:00 EDT Orthostatic Vitals Signs Extracted from: Title:Consult Note-neurology Author:Ana KERR, N ichole Date:07/28/22 Mild intermittently-noticed language issues since cardiac catheterization on . Some mild intermittent confusion/disorientation as well. Concern for iatrogenic embolic ischemic stroke - MRI pending. Also with holocephalic headache of unclear etiology; secondary pathology to be ruled out with MRI. 1. Acute encephalopathy (G93.40: Encephalopathy, unspecified) 2. Acute headache (R51.9: Headache, unspecified) 3. Urinary tract infection (N39.0: Urinary tract infection, site not specified) 4. Hypertensive urgency (I16.0: Hypertensive urgency) 5. Metabolic acidosis, increased anion gap (E87.29: Other acidosis) 6. Dehydration (E86.0: Dehydration) 7. Coronary artery disease (I25.10: Atherosclerotic heart disease of kaibab coronary artery without angina pectoris) 8. Hyperlipidemia (E78.5: Hyperlipidemia, unspecified) 9. Obstructive sleep apnea (G47.33: Obstructive sleep apnea (adult) (pediatric)) 10. Allergic rhinitis (J30.9: Allergic rhinitis, unspecified) 11. Depression (F32.A: Depression, unspecified) 12. Obesity (E66.9: Obesity, unspecified) 13. 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 DVT prophylaxis (Z29.9: Encounter for prophylactic measures, unspecified) Extracted from: Title:Admission H & P Author:CHERYL AMBROSIO Félix Rajinder Date:07/27/22 1. Acute encephalopathy (G93 .40: Encephalopathy, unspecified) Patient did have transient disorientation, has had word finding difficulties, also had transient numbness bilateral hands. Patient is admitted to rule out a threatened cerebrovascular event especially after recent cardiac catheterization. Differential also would include hypertensive effects, cannot rule out atypical migrainous events with below. Note we will be treating patient for urinary tract infection which can cause disorientation, word finding difficulty but would not anticipate this causing transient numbness of both hands. Patient has an NIH of 0 at this time. We will perform neuro checks throughout the evening. Check an MRI in the a.m.. Note patient had a CTA of the head and neck with no large vessel occlusion ,therefore would not benefit from carotid Dopplers, also note patient had a recent echocardiogram. Consult with neurology Ordered: Hepatic Function Panel Sedimentation Rate Automated TSH With T4fr Reflex Vitamin B12 Level 2. Acute headache (R51.9: Headache, unspecified) Patient describes it as being in the parietal region, is not typical for migrainous events ? Atypical migraine. ?related to UTI. Note patient does admit to frontal sinus symptoms and a history of allergic rhinitis in the fall see below. However in light of above not rule out vascular related events as well. Patient received diphenhydramine and Toradol at 1855. When asked if there was any benefit to these medications she replied I do not know I fell asleep . She was complaining of a headache at this time. Attempt to treat conservatively bringing her relief but not compounding above. Make Toradol available for her as needed we the pros and cons of this and attempt to being conservative and avoiding agents that could cause altered sensorium against the risk of concomitant aspirin administration and individual who has had gastric bypass surgery. Note hemoglobin is stable Ordered: APAP/butalbital/caffeine, 1 tab(s), Tab, Oral, Once, Stop date 07/27/22 23:00:00 EDT, Routine, Start date 07/27/22 23:00:00 EDT ketorolac, 15 mg = 1 mL, Injection, IV Push, q6hr for 5 day(s), Stop date 08/02/22 0:59:00 EDT, Routine, Start date 07/28/22 1:00:00 EDT, 07/28/22 1:00:00 EDT Sedimentation Rate Automated 3. Urinary tract infection (N39.0: Urinary tract infection, site not specified) UA though it demonstrated only 1+ leukocyte Estrace, 6-15 WBCs and trace bacteria negative nitrates she does admit to urgency over the past few days. She has had decreased appetite and intake along with confusion with therefore initiated ceftriaxone awaiting urine culture Ordered: ceftriaxone + Sodium Chloride 0.9% intravenous solution 50 mL, 1,000 mg = 1 EA, IV Piggyback, q24hr, Routine, Start date 07/27/22 23:00:00 EDT, 100 mL/hr, Infuse over 30 minute(s), 07/27/22 22:59:00 EDT 4. Hypertensive urgency (I16.0: Hypertensive urgency) Question because of above symptoms versus catecholamine induced as result of above. Until stroke is ruled out ,we will allow some relative permissive elevation of blood pressure while avoiding excessive increases. We will continue her home medication but avoid aggressive control. Note CT of the brain did not demonstrate any intracranial hemorrhage. Awaiting reconciliation of home meds but she did states she is on lisinopril in the a.m., amlodipine in the evening, she was recently prescribed metoprolol has not yet had the opportunity to take this. We will use all these agents 5. Metabolic acidosis, increased anion gap (E87.29: Other acidosis) We will check lactic acid. Recheck labs in the a.m. Ordered: Lactic Acid 6. Dehydration (E86.0: Dehydration) Patient is prerenal she has had decreased appetite and intake over the past few days. We will continue to hydrate. Note recent cardiac catheterization demonstrated ejection fraction of at least 75% 7. Coronary artery disease (I25.10: Atherosclerotic heart disease of kaibab coronary artery without angina pectoris) Mild to moderate. Cardiac catheterization on the LAD was 30% occluded, left circumflex 30% occluded, recurrent artery 50% occluded, ejection fraction of 75 to 80%. Continue statin. Continue beta-blockers while watching fatigue 8. Hyperlipidemia (E78.5: Hyperlipidemia, unspecified) We will initiate atorvastatin which she was prescribed by her bioprocess development engineer but has not yet filled as this was recently prescribed 9. Obstructive sleep apnea (G47.33: Obstructive sleep apnea (adult) (pediatric)) She states she stopped using CPAP several years prior, she has lost significant amounts of weight with assistance of pharmacologic agents in addition to her Dunia en Y and has been considered by her primary care physician for repeat sleep study based on her significant fatigue and recent excessive sleepiness 10. Allergic rhinitis (J30.9: Allergic rhinitis, unspecified) Patient uses Flonase. She did admit to some mild frontal pressure. His mucosa was boggy 11. Depression (F32.A: Depression, unspecified) Patient is using Effexor denies any recent stressful events 12. Obesity (E66.9: Obesity, unspecified) As suggested above note patient did have a Dunia en Y in 2016, she is also on services on terzepatide for diabetes but to assist with weight loss. With a recent decreased oral intake which may very well be due to urinary tract infection dehydration we will hold this agent transiently 13. History of ductal carcinoma in situ of breast (Z86.000: Personal history of in-situ neoplasm of breast) Diagnosed in September 2012 received radiation therapy per documentation in January 2013 started tamoxifen in April 2013 completed in April 2018 14. DVT prophylaxis (Z29.9: Encounter for prophylactic measures, unspecified) Heparin subcutaneously in light of above Orders: acetaminophen, 650 mg = 2 tab(s), Tab, Oral, q6hr PRN Pain, Routine, Start date 07/27/22 22:56:00 EDT, 07/27/22 22:56:00 EDT Al hydroxide/Mg hydroxide/simethicone, 30 mL, Susp-Oral, Oral, q6hr PRN Indigestion, Routine, Start date 07/27/22 22:56:00 EDT aspirin, 81 mg = 1 tab(s), Tab-EC, Oral, Daily, Routine, Start date 07/28/22 9:00:00 EDT, 07/27/22 22:56:00 EDT heparin, 5,000 unit(s) = 1 mL, Injection, SubCutaneous, q12hr, Routine, Start date 07/27/22 23:00:00 EDT, 07/27/22 22:56:00 EDT magnesium hydroxide, 30 mL, Susp-Oral, Oral, q6hr PRN Constipation, Routine, Start date 07/27/22 22:56:00 EDT ondansetron, 4 mg = 2 mL, Injection, IV Push, q6hr PRN Nausea, Routine, Start date 07/27/22 22:56:00 EDT, 07/27/22 22:56:00 EDT senna, 17.2 mg = 2 tab(s), Tab, Oral, BID PRN Other (see comment), Routine, Start date 07/27/22 22:56:00 EDT, 07/27/22 22:56:00 EDT Sodium Chloride 0.9% intravenous solution 1,000 mL, 1,000 mL, IV, 100 mL/hr, Routine, Start date 07/27/22 22:56:00 EDT, 10 hour(s), Total volume (mL): 1,000, 82.1 kg, 1.88, m2 Ambulate with Assistance Basic Metabolic Panel Below the Knee Intermittent Pneumatic Compression Device Cardiac Monitoring CBC w/ Auto Diff Communication Order Communication Order Communication Order Physician to Nursing Consult to Neurology Dysphagia Screen Evaluate Need For Continued Telemetry HgbA1c Lipid Panel MRI Brain w/o Contrast Neurological Assessment Notify Provider Vital Signs Notify Provider Vital Signs Place in Status Regular Diet Resuscitation Status - Full Stroke Education Stroke Quality Measures Vital Signs Weight Patient is admitted as an observation with the anticipation she will not require 2 midnight stay Extracted from: Title:ED Note Author:Musa Wheat DO Date: Acute headache (R51.9: Heada josué, unspecified) Altered mental status (R41.82: Altered mental status, unspecified) Dehydration (E86.0: Dehydration) Orders: diphenhydrAMINE, 25 mg = 0.5 mL, Injection, IV Push, Once, Stop date 07/27/22 18:20:00 EDT, STAT, Start date 07/27/22 18:20:00 EDT, 07/27/22 18:20:00 EDT ketorolac, 30 mg = 1 mL, Injection, IV Push, Once, Stop date 07/27/22 18:19:00 EDT, STAT, Start date 07/27/22 18:19:00 EDT, 07/27/22 18:19:00 EDT metoclopramide, 10 mg = 2 mL, Injection, IV Push, Once, Stop date 07/27/22 18:20:00 EDT, STAT, Start date 07/27/22 18:20:00 EDT, 07/27/22 18:20:00 EDT Sodium Chloride 0.9% intravenous solution 1,000 mL, 1,000 mL, IV, 999 mL/hr, STAT, Start date 07/27/22 18:18:00 EDT, 1 hour(s), Total volume (mL): 1,000, 82.1 kg, 1.88, m2 Automated Diff Basic Metabolic Panel CBC w/ Auto Diff [place] Stroke Scale Communication Order Physician to Nursing Continuous Pulse Oximetry CT Head or Brain w/o Contrast CTA Head CTA Neck ECG 12 Lead Adult ED Cardiac Monitoring eGFR NPO Diet Oxygen Therapy PT & PTT Routine Capillary Glucose POC Saline Lock Insert Troponin 0 Hr. UA With Cult Reflex Urine Culture Vital Signs XR Chest Single View Future Appointments Appointment Date:08/05/2022 01:00:00 PM Scheduled Provider:Keshia Taylor MD Location:[facility] Appointment Type: Hospital Follow Up w/TCM Appointment Date:08/15/2022 02:15:00 PM Scheduled Provider:Zaina ALEJANDRA, Ady Young [facility] () [facility]09-29-2022 Hospital Discharge instructions Patient Education 07/25/2022 12:23:32 CV - Cardiovascular Discharge Instructions (CUSTOM) [place], [place] CARDIOVASCULAR DISCHARGE INSTRUCTIONS Diet: Resume pre-procedure diet. Increase water intake the next 2 days to flush dye out of the body. Activity: If radial access: Limit your activity today. Do not operate a vehicle, machinery or power tools. NO LIFTING OVER 3 POUNDS for 3 days. Do not bend your wrist for 24 hours. May resume driving in 24 hours. No sexual activity for 1 week. Let pain/discomfort guide your activity. If you are having pain, stop. Return to the Emergency Room if you have trouble breathing, walking or nausea and vomiting. Medications: Resume pre-procedure medication, unless otherwise directed. Hold the following medications for 48 hours post procedure: Actoplus MetGlucophageGlucophage XR GlucovanceAvandametFortamet Sen-mtgldkecqTphswkZumg-kkqrjwvzy GlumetzaJanumetMetaglip RiometGlycomet *Minimal pain, soreness and/or discomfort is expected. *You may take OTC non-steroidal anti-inflammatory to manage discomfort, unless contraindicated. If pain is not controlled with the above medications, contact your physician. Site Care: Do not remove dressing for 24 hours unless it becomes saturated, then replace. Keep site clean and dry; inspect site daily. Do not use any lotions, powders, or ointments at the groin or wrist site for 1 week. May shower 24 hours after the procedure. Clean site with soap and water. Pat dry and apply band aid. No tub baths, swimming or hot tubs for 3 days Post Procedure: Soreness and tenderness to the site can last up to one week. Bruising may occur to site. A responsible adult should be with you for the first 24 hours after you arrive home. Keep follow-up appointment. No smoking for 24 hours as it increases the risk of developing blood clots. If you are interested in smoking cessation, contact [facility] at [phone], ext. [phone]. In the event you are unable to reach your physician, please call [facility] at [phone] and the styrene dehydration reactor operator will assist you. Seek Immediate Medical Care for: Bleeding: Apply continuous pressure to the site and Call 911. Should the arm or leg become cold, numb, blue or white call your physician immediately. Signs of infection are redness, warmth, swelling, increased tenderness, colored drainage, fever or chills Chest pain Follow Up Care 07/15/2022 15:41:47 With:Ady Mahajan Address: [address] [place] [phone] Business (1) When:08/15/2022 14:15:00 [facility]09-29-2022 Evaluation + Plan noteExtracted from: Title:Procedure Note Heart & V[facility] Author:Canelo rivas MD, Ady Young Date:07/25/22 Ordered: acetaminophen, 325 mg = 1 tab(s), Tab, Oral, q6hr PRN Pain 1-3 for 24 hour(s), Stop date 07/26/22 10:21:00 EDT, Routine, Start date 07/25/22 10:22:00 EDT, Maximum dose of acetaminophen is 4000 mg from all sources in 24 hours., 07/25/22 10:22:00 EDT acetaminophen, 650 mg = 2 tab(s), Tab, Oral, q6hr PRN Pain 1-3 for 24 hour(s), Stop date 07/26/22 10:21:00 EDT, Routine, Start date 07/25/22 10:22:00 EDT, Maximum dose of acetaminophen is 4000 mg from all sources in 24 hours., 07/25/22 10:22:00 EDT aspirin, Tab-Chew, Misc, Once, Stop date 07/25/22 8:34:10 EDT, Physician Stop, 07/25/22 8:34:10 EDT Circulation Check Circulation Check Communication Order Communication Order Communication Order Communication Order Communication Order Communication Order Communication Order Communication Order Communication Order Discharge When Patient Meets Criteria Notify Provider Notify Provider Notify Provider Vital Signs Oxygen Protocol Site Check Up ad Ya Vital Signs Future Appointments Appointment Date:08/15/2022 02:15:00 PM Scheduled Provider:Ady Mahajan MD Location:.[facility] Appointment Type:Cardiology Follow Up (FT) [facility]04-28-2022 Miscellaneous Notes* Telephone Encounter - Alida Garrido - 02/21/2022 8:41 AM EDT [facility] [phone]. [facility] Discharge instructions Patient Education 02/20/2022 15:44:58 Cough, Adult Cough, Adult Coughing is a reflex that clears your throat and your airways (respiratory system). Coughing helps to heal and protect your lungs. It is normal to cough occasionally, but a cough that happens with other symptoms or lasts a long time may be a sign of a condition that needs treatment. An acute cough may only last 2 3 weeks, while a chronic cough may last 8 or more weeks. Coughing is commonly caused by: Infection of the respiratory systemby viruses or bacteria. Breathing in substances that irritate your lungs. Allergies. Asthma. Mucus that runs down the back of your throat (postnasal drip). Smoking. Acid backing up from the stomach into the esophagus (gastroesophageal reflux). Certain medicines. Chronic lung problems. Other medical conditions such as heart failure or a blood clot in the lung (pulmonary embolism). Follow these instructions at home: Medicines Take oyer-pko-wohkmnt and prescription medicines only as told by your health care provider. Talk with your health care provider before you take a cough suppressant medicine. Lifestyle Avoid cigarette smoke. Do not use any products that contain nicotine or tobacco, such as cigarettes, e-cigarettes, and chewing tobacco. If you need help quitting, ask your health care provider. Drink enough fluid to keep your urine pale yellow. Avoid caffeine. Do not drink alcohol if your health care provider tells you not to drink. General instructions Pay close attention to changes in your cough. Tell your health care provider about them. Always cover your mouth when you cough. Avoid things that make you cough, such as perfume, candles, cleaning products, or campfire or tobacco smoke. If the air is dry, use a cool mist vaporizer or humidifier in your bedroom or your home to help loosen secretions. If your cough is worse at night, try to sleep in a semi-upright position. Rest as needed. Keep all follow-up visits as told by your health care provider. This is important. Contact a health care provider if you: Have new symptoms. Cough up pus. Have a cough that does not get better after 2 3 weeks or gets worse. Cannot control your cough with cough suppressant medicines and you are losing sleep. Have pain that gets worse or pain that is not helped with medicine. Have a fever. Have unexplained weight loss. Have night sweats. Get help right away if: You cough up blood. You have difficulty breathing. Your heartbeat is very fast. These symptoms may represent a serious problem that is an emergency. Do not wait to see if the symptoms will go away. Get medical help right away. Call your local emergency services (911 in the [place] Do not drive yourself to the hospital. Summary Coughing is a reflex that clears your throat and your airways. It is normal to cough occasionally, but a cough that happens with other symptoms or lasts a long time may be a sign of a condition that needs treatment. Take dhgu-rfn-gypbdeq and prescription medicines only as told by your health care provider. Always cover your mouth when you cough. Contact a health care provider if you have new symptoms or a cough that does not get better after 23 weeks or gets worse. This information is not intended to replace advice given to you by your health care provider. Make sure you discuss any questions you have with your health care provider. Document Released: 04/10/2012 Document Revised: 11/01/2019 Document Reviewed: 11/01/2019 Maintenance Assistant Patient Education 2019 [employer]. [facility] [employer] + Plan note No data available for this [facility] + Plan note Future Appointments Appointment Date:07/12/2022 01:15:00 PM Scheduled Provider:[facility] Mahajan [facility] Future Appointments Appointment Date:07/25/2022 09:00:00 AM Scheduled Provider: [facility] (FT[facility] Future Scheduled Tests Radiology* CV Cardiovascular 07[facility]25/22 [facility] Future Appointments Appointment Date:08/15/2022 02:15:00 PM Scheduled Provider:Ady Mahajan MD [facility]:Cardiology Follow Up (FT) Appointment Date:01/27/2023 02:20:00 PM Scheduled Provider:Keshia Taylor MD Location:[facility] Appointment Type:[facility] [employer]uation + Plan note Future Appointments Appointment Date:01/27/2023 02:20:00 PM Scheduled Provider:Keshia Taylor MD Location:[facility] Appointment Type:[facility] note* Diagnosis Mass of breast, unspecified laterality- Primary documented in this encounter [facility] note* Diagnosis Mass of breast, unspecified laterality- Primary Ductal carcinoma in situ (DCIS) of left breast [facility] Diagnosis Mass of breast, unspecified laterality [facility] Diagnosis History of ductal carcinoma in situ (DCIS) of breast- Primary documented in this encounter [facility] Discharge instructions No data available for this section [facility] No data available for this section [facility] Center[facility] for referral (narrative)* Diagnostic Procedure Only (Routine) - New Request Specialty Diagnoses / Procedures Referred By Glory yap Referred To Contact [facility] Diagnoses History of ductal carcinoma in situ (DCIS) of breast Procedures WILFRID SCREENING W EL SCREENING DIGITAL BREAST TOMOSYNTHESIS BI SCREENING MAMMOGRAPHY BI 2-VIEW BREAST INC CAD Jason Buchanan MD [address] [place] [address] [place] [address] [facility] [address] [facility] [place] [address] Referral ID Status Reason Start Date Expiration Date Visits Requested Visits Authorized [id number] New Request Auto-Generat ed Referral 10/14/2025 1 1 [facility] Summary Purpose Family History No Family History Records FoundNo Family History Records FoundNo Family History Records FoundNo Family History Records Found Advance Directives No Advanced Directives Records Found Advance Directive Response Recorded Date/ Time Advance Directives No June 1:35pm Chief Complaint and Reason for Visit Chief Complaint vaccine ins Assessments No Assessments Information Available Reason for Referral Specialty Diagnoses / Procedures Referred By Glory yap Referred To Contact MR IMAGING Diagnoses Mass of breast, unspecified laterality Procedures MRI BREAST WO/W IVCON BILATERAL MRI BREAST WITHOUT&WITH CONTRAST W/CAD BILATERAL Rosita Meza PA-C [address] [place] [address] [place] [address] [facility] Referral ID Status Reason Start Date Expiration Date Visits Requested Visits Authorized [id number] Pending Review Auto-Generat ed Referral 05/22/2023 06/20/2024 1 1 Additional Source Comments INFORMATION SOURCE (unrecogn ized section and content) DATE CREATED AUTHOR 04/17/2018 [facility] DATE CREATED AUTHOR AUTHOR'S ORGANIZ ATION 09/06/2022 [facility] DATE CREATED AUTHOR AUTHOR'S ORGANIZ ATION 03/02/2024 Levi Coates [facility] DATE CREATED AUTHOR AUTHOR'S ORGANIZ ATION 09/17/2024 [facility] Source Comments (unrecognize d section and content) In the event this informatio n is protected by the Federal Confidentiality of Alcohol and Drug Abuse Patient Records regulations: The Federal rules restrict any use of the information to criminally investigate or prosecute any alcohol or drug abuse patient.[facility] HospitalIn the event this information is protected by the Federal Confidentiality of Alcohol and Drug Abuse Patient Records regulations: The Federal rules restrict any use of the information to criminally investigate or prosecute any alcohol or drug abuse patient.[facility] HospitalIn the event this information is protected by the Federal Confidentiality of Alcohol and Drug Abuse Patient Records regulations: The Federal rules restrict any use of the information to criminally investigate or prosecute any alcohol or drug abuse patient.[facility] HospitalIn the event this information is protected by the Federal Confidentiality of Alcohol and Drug Abuse Patient Records regulations: The Federal rules restrict any use of the information to criminally investigate or prosecute any alcohol or drug abuse patient.[facility] HospitalIn the event this information is protected by the Federal Confidentiality of Alcohol and Drug Abuse Patient Records regulations: The Federal rules restrict any use of the information to criminally investigate or prosecute any alcohol or drug abuse patient.[facility] HospitalIn the event this information is protected by the Federal Confidentiality of Alcohol and Drug Abuse Patient Records regulations: The Federal rules restrict any use of the information to criminally investigate or prosecute any alcohol or drug abuse patient.[facility] HospitalIn the event this information is protected by the Federal Confidentiality of Alcohol and Drug Abuse Patient Records regulations: The Federal rules restrict any use of the information to criminally investigate or prosecute any alcohol or drug abuse patient.[facility] HospitalIn the event this information is protected by the Federal Confidentiality of Alcohol and Drug Abuse Patient Records regulations: The Federal rules restrict any use of the information to criminally investigate or prosecute any alcohol or drug abuse patient.[facility] HospitalIn the event this information is protected by the Federal Confidentiality of Alcohol and Drug Abuse Patient Records regulations: The Federal rules restrict any use of the information to criminally investigate or prosecute any alcohol or drug abuse patient.[facility] HospitalIn the event this information is protected by the Federal Confidentiality of Alcohol and Drug Abuse Patient Records regulations: The Federal rules restrict any use of the information to criminally investigate or prosecute any alcohol or drug abuse patient.[facility] HospitalIn the event this information is protected by the Federal Confidentiality of Alcohol and Drug Abuse Patient Records regulations: The Federal rules restrict any use of the information to criminally investigate or prosecute any alcohol or drug abuse patient.[facility] HospitalIn the event this information is protected by the Federal Confidentiality of Alcohol and Drug Abuse Patient Records regulations: The Federal rules restrict any use of the information to criminally investigate or prosecute any alcohol or drug abuse patient.[facility] HospitalIn the event this information is protected by the Federal Confidentiality of Alcohol and Drug Abuse Patient Records regulations: The Federal rules restrict any use of the information to criminally investigate or prosecute any alcohol or drug abuse patient.[facility] Reason for Visit (unrecogniz ed section and content) Reason Comments Records faxed Reason Comments Refill Request Reason Comments Patient Update Reason Comments Appointment Confirmation Reason Onset Date Comments Refill Request 06/04/2023 Reason Comments Breast MRI Reason Comments Results Reason Comments Radiology MRI Specialty Diagnoses / Procedures Referred By Contac t Referred To Contact MR IMAGING Diagnoses Mass of breast, unspecified laterality Procedures MRI BREAST WO/W IVCON BILATERAL MRI BREAST WITHOUT&WITH CONTRAST W/CAD BILATERAL Rosita Meza PA-C [address] [place] [address] [place] [address] [place] [id number] Referral ID Status Reason Start Date Expiration Date V isits Requested Visits Authorized [id number] Closed Auto-Generate d Referral 05/30/2023 07/28/2023 1 1 Reason Comments Breast Cancer FEROZ Care Teams (unrecognized sec tion and content) [employer] Relationship Specialty Start Date End Date Alexandra Castaneda MD [address] [facility] [place] [address] PCP - General Family Practice 11/30/12 [employer] Manager Relationship Specialty Start Date End Date Alexandra Castaneda MD [address] [place] [address] PCP - General Family Practice 11/30/12 [employer] Relationship Specialty Start Date End Date Alexandra Castaneda MD [address] [place] [address] PCP - General Family Medicine 11/30/12 [employer] Relationship Specialty Start Date End Date Alexandra Castaneda MD [address] [place], [facility] PCP - General Family Medicine 11/30/12 [employer] Manager Relationship Specialty Start Date End Date Alexandra Castaneda MD [address] [place], [facility] PCP - General Family Medicine 11/30/12 [employer] Manager Relationship Specialty Start Date End Date Alexandra Castaneda MD [address] [place], [facility] PCP - General Family Medicine 11/30/12 [employer] Manager Relationship Specialty Start Date End Date Alexandra Castaneda MD [address] [place], [facility] PCP - General Family Medicine 11/30/12 [employer] Manager Relationship Specialty Start Date End Date Alexandra Castaneda MD [address] [place] [address] PCP - General Family Medicine 11/30/12 [employer] Relationship Specialty Start Date End Date Alexandra Castaneda MD [address] [facility] [place] [place] [address] PCP - General Family Medicine 11/30/12 [employer] Relationship Specialty Start Date End Date Alexandra Castaneda MD [address] [facility] [place] [address] PCP - General Family Medicine 11/30/12 07/21/23 [employer] Relationship Specialty Start Date End Date Keshia Taylor MD [address] [place] [address] PCP - General Family Medicine 07/22/23 FOR RECORDS PERTAINING TO PATIENTS WHO ARE OR HAVE BEEN ENROLLED IN A CHEMICAL DEPENDENCY/SUBSTANCEABUSE PROGRAM, SOME INFORMATION MAY BE OMITTED. This clinical summary was aggregated from multiple sources. Caution should be exercised in using it in the provision of clinical care. This summary normalizes information from multiple sources, and as a consequence, information in this document may materially change the coding, format and clinical context of patient data. In addition, data may be omitted in some cases. CLINICAL DECISIONS SHOULD BE BASED ON THE PRIMARY CLINICAL RECORDS. [employer] [facility]. provides no warranty or guarantee of the accuracy or completeness of information in this document.
== END 2024-11-08 12:16 | disposition home or self-care (01) ==
LOC: RAD 12:18
PROVIDERS: PCP Family Medicine; Visit Provider Nurse Practitioner
DX: M54.50 Low back pain, unspecified (principal); M51.369 Other intervertebral disc degeneration, lumbar region without mention of lumbar back pain or lower extremity pain
CPT/HCPCS: 72110

== ENCOUNTER 2025-09-02 10:34 | Outpatient (OUT) | payer OTHER, SELFPAY ==
--- OUTSIDE RECORDS SUMMARY | 2025-09-02 10:37 | XMS_ITS | Clinical Summary ---
Author Organization [facility] Healthcare Address [address] [place] [address] Care Team Providers Care Promotions Associate Name Role Phone Unavailable Primary Care Provider Unavailabl e Social History Tobacco UseTypesPacks/DayYears UsedDateSmoking Tobacco: Never Assessed CommentsUnknownSex and Gender InformationValueDate RecordedSex Assigned at Not on fileLegal BomRaymqz00/15/2023 7:03 PM EDTGender IdentityNot on fileSexual OrientationNot on file Last Filed Vital Signs Vital SignReadingTime TakenCommentsBlood Vimtpuqq954/7608/29/2022 12:00 PM EDT Pulse--Temperature--Respiratory Rate--Oxygen Saturation--Inhaled Oxygen Concentration--Ynotej95.6 kg (171 lb)08/29/2022 12:00 PM MWIDalwew695.9 cm (5' 1 )08/29/2022 12:00 PM EDTBody Mass Index32.31110/29/2021 12:00 PM EDT Plan of Treatment DateTypeDepartmentCare Team (Latest Contact Info)Mbvrxyqojms75/18/2025 10:15 AM ESTOffice Visit [facility] [address] [place] [id number] Davion Guardado, DO [address] [place] [address] Health MaintenanceDue DateLast DoneCommentsCT Btdsqnumptsb06/07/1959Colonoscopy 1958Colorectal Cancer Ywopazxah12/07/1959FIT-DNA1958FIT1958 FOBT1958 7410Kkkmjuyaksnox19/07/1959Pneumococcal Vaccine: 65+ Years (1 of 1 - PCV)12/31/20086751Sozrtcciw65/03/202311/2COVID-19 Vaccine (3 - season) /11/2020, 01/05/2021Influenza Vaccine (#1)/02/2021, 07/27/2020 Procedures Procedure NamePriorityDate/TimeAssociated DiagnosisCommentsBI MAMMOGRAM SCREENING CNNTBWWPGSrdqoig14/03/2022 12:00 PM EDT Asymptomatic menopausal state Acquired absence of both cervix and uterus Encounter for other screening for malignant neoplasm of breast Encounter for gynecological examination (general) (routine) without abnormal findings Age-related osteoporosis without current pathological fracture from Last 3 Months or Most Recently Relevant to Health Maintenance Results * Bilateral screening mammogram (08/29/2022 12:00 PM EDT)Anatomical Region LateralityModalityBreastBilateralMammographySpecimen (Source)Anatomical Location / LateralityCollection Method / VolumeCollection TimeReceived Time Narrative 08/29/2022 12:00 PM EDT PERFORMED AT [facility] LOCATION:[id number] Procedure Note CONVERSION, GENERIC - 05/02/2023 PERFORMED AT [facility] LOCATION:[id number] Authorizing ProviderResult TypeResult StatusGregory Chanel ALEJANDRAG BI PROCEDURES Final Result from Last 3 Months or Most Recently Relevant to Health Maintenance Insurance
--- OUTSIDE RECORDS SUMMARY | 2025-09-02 10:37 | XMS_ITS | Clinical Summary ---
Author Organization [employer] [facility] tem Address [id number] [address] [place] [address] Care Team Providers Care Pigment Grinder Name Role Phone Myah Castaneda MD Primary Care Provider Allergies Active AllergyReactionsCriticalityNoted DateCommentsSulfa (Sulfonamide Antibiotics)MxnjSzb5204/19/2019 Medications MedicationSigDispense QuantityRefillsLast FilledStart DateEnd DateStatus lisinopril (PRINIVIL,ZESTRIL) 20 mg tablet Take 20 mg by mouth daily.Active venlafaxine XR (EFFEXOR-XR) 75 mg 24 hr capsule Take 75 mg by mouth daily.Active amLODIPine (NORVASC) 5 mg tablet Take 5 mg by mouth daily.Active gnkyuedt-svup-WL-calcium &mins (THERAGRAN-M) 9 mg iron-400 mcg tablet Take 1 tablet by mouth 2 (two) times a day.Active ascorbic acid, vitamin C, (VITAMIN C) 500 mg tablet Take 500 mg by mouth 2 (two) times a day.Active cyanocobalamin (vitamin B-12) 1000 MCG tablet Take 1,000 mcg by mouth 2 (two) times a week.Active ALPRAZolam (XANAX) 0.25 mg tablet Take 0.25 mg by mouth as needed for anxiety.Active coenzyme Q10 10 mg capsule Take 10 mg by mouth daily.Active Social History Tobacco UseTypesPacks/DayYears UsedDateSmoking Tobacco: NeverSmokeless Tobacco: NeverAlcohol UseStandard Drinks/WeekCommentsYes7 (1 standard drink = 0.6 oz pure alcohol)3 aweekChildcareAnswerDate GcpapujfCorhxrdqfEqwptob95/11/2019Employment AnswerDate PczzrkvqMfjlxnwiauRjeokab05/11/2019Purpose - LifeAnswerDate Recorded Purpose and direction in fyfsNexmfcf38/11/2021CommentsNoSex and Gender InformationValueDate RecordedSex Assigned at BirthNot on fileLegal SexFemale 06/01/2015 12:11 PM EDTGender IdentityNot on fileSexual OrientationNot on file Last Filed Vital Signs Vital SignReadingTime TakenCommentsBlood Kmtevodx129/7809 9:45 AM EDT Vwlwg669607/07/2019 9:45 AM XPYDfqwjknjeff94.3 ??C (97.3 ??F)07/07/2019 9:45 AM EDTRespiratory Bixg335407/07/2019 9:45 AM EDTOxygen Dsfttgnypr10%07/07/2019 9:45 AM EDTInhaled Oxygen Concentration--Neiokh05.5 kg (193 lb)07/07/2019 7:34 AM EDT Mfiphz474.9 cm (5' 1 )07/07/2019 7:34 AM EDTBody Mass Index36.4709 7:34 AM EDT Plan of Treatment Not on file Medical Devices Not on file Insurance Care Teams Team MemberRelationshipSpecialtyStart DateEnd Myah Castaneda MD PCP - GeneralFamily Medicine04/06/19
--- OUTSIDE RECORDS SUMMARY | 2025-09-02 10:37 | XMS_ITS | Clinical Summary ---
Author Organization [facility] Address [address] [place], [place] [id number] Care Team Providers Care Civil Structural Engineer Name Role Phone Des Odell MD Primary Care Provider [phone] Allergies Active AllergyReactionsCriticalityNoted KcuqJpgskxiuGbjceqeHybteyxyedp49/21/2014 RkrykpgZskbjgh32/27/2015Sulfa (Sulfonamide Antibiotics)AjakJfy8112/07/2012 Medications MedicationSigDispense QuantityRefillsLast FilledStart DateEnd DateStatus ALPRAZolam (XANAX) 0.25 mg tablet Take 0.25 mg by mouth at bedtime as needed.05/22/2015ctive lisinopril (ZESTRIL, PRINIVIL) 20 mg tablet Take 20 mg by mouth once daily.08/10/2015ctive amLODIPine (NORVASC) 5 mg tablet Take 5 mg by mouth once daily.Active CALCIUM CARBONATE/VITAMIN D3 (CALCIUM 500 + D ORAL) Take by mouth.Active MULTIVITAMIN (VITAMIN DAILY ORAL) Take by mouth.Active melatonin 3 mg tablet Take 3 mg by mouth at bedtime as needed.Active ubidecarenone Q-10 (COENZYME Q-10) 10 mg cap Take 10 mg by mouth once daily.Active MAGNESIUM ORAL Take 250 mg by mouth.08/04/2020Active naproxen (NAPROSYN) 250 mg tablet Take by mouth.08/04/2020Active alendronate (FOSAMAX) 35 mg tablet 08/28/2021ctive metoprolol tartrate, short acting, (LOPRESSOR) 25 mg tablet Take 25 mg by mouth twice daily.08/25/2022ctive atorvastatin (LIPITOR) 40 mg tablet Take 40 mg by mouth once daily.08/25/2022ctive MOUNJARO 7.5 mg/0.5 mL pen injector INJECT 1 ONCE A WEEK08/25/2022ctive DOSOKAP 5,500-200 unit-mcg tab TAKE 1 TABLET BY MOUTH ONCE DAILY06/29/2022ctive vitamin B complex (VITAMIN B-50 COMPLEX ORAL) Take by mouth once daily.Active pantoprazole DR (PROTONIX) 20 mg tablet take 1 tablet by mouth twice daily as /19/2023ctive ADULT ASPIRIN ORAL Take 81 mg by mouth.Active venlafaxine ER (EFFEXOR XR) 75 mg 24 hr capsule Take 1 capsule by mouth once daily 90 capsule 11/05/2023ctive Active Problems ProblemNoted DateDiagnosed 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 Staging: Clinical:Stage 0(Tis (DCIS), N0, M0) - Unsigned Immunizations ImmunizationAdministration DatesNext DueCOVID-19 original vaccine, age 12+ yr, monovalent (Jamplify-Mapiliary - PURPLE TOP)01/26/2021,01/05/2021influenza (IIV4) vaccine, age 6 mo - 64 yr, quadrivalent, PF (AFLURIA, FLUARIX, FLULAVAL, FLUZONE)07/31/2021influenza (LAIV) vaccine, nasal, unspecified formulation 07/28/2021,07/27/2020influenza (RIV4) vaccine, recombinant, quadrivalent, PF (FLUBLOK)07/27/2020novel influenza (L1W4-42) vaccine, PF08/28/2009zoster (RZV) vaccine, recombinant (SHINGRIX)12/19/2020,10/11/2020 Family History Medical HistoryRelationCommentsDiabetesBrother 3HypertensionBrother 4Cancer Fatherskin cancerDiabetesFatherHeartFatherHypertensionFatherStrokeFatherBreast CancerMotherHeartMotherHypertensionMotherStrokeMotherRelationStatusComments Brother 1AliveBrother 2AliveBrother 3Brother 4FatherAliveMotherDeceased Social History Tobacco UseTypesPacks/DayYears UsedDateSmoking Tobacco: NeverPassive Smoke Exposure: PastSmokeless Tobacco: Never Tobacco Cessation:Counseling Given: Not Answered Alcohol UseStandard Drinks/WeekCommentsYes0 (1 standard drink = 0.6 oz pure alcohol)PHQ-2AnswerDate RecordedPHQ-2 qmzzq219rea Deprivation Index AnswerDate RecordedNational Score (1-100), lower number is lower risk88 07/09/2023State Score (1-10), lower number is lower ooxb80107/09/2023ata from: https://www.neighborhoodatlas.[facility].edu/. Last address used for c[address]CommentsNoSex and Gender InformationValueDate RecordedSex Assigned at BmsbhHhjzeh06/31/2019 10:46 PM EDT Legal QxnNchccs04/02/2012 9:01 AM ESTGender MwelahexEcnbxg86/31/2019 10:46 PM EDTSexual GextutrlghhEavkqvsq02/31/2019 10:46 PM EDT Last Filed Vital Signs Vital SignReadingTime TakenCommentsBlood Kngfsnid434/8909/14/2024 1:51 PM EST Kfgaz835909/14/2024 1:51 PM NLUPgepppaaebg53.4 ??C (97.6 ??F)09/14/2024 1:51 PM ESTRespiratory Xnyo887611/14/2023 1:51 PM ESTOxygen Hzmfpeohbb46%09/14/2024 1:51 PM ESTInhaled Oxygen Concentration--Qdunli39.5 kg (184 lb 1.4 oz)09/14/2024 1:51 PM ESQUcuvnq699.4 cm (5')09/14/2024 1:51 PM ESTBody Mass Index35.9509/14/2024 1:51 PM EST Plan of Treatment DateTypeDepartmentCare Team (Latest Contact Info)Tcptxfnbdvk00/18/2025 1:40 PM ESTOffice Visit [facility] [address] [place] [address] Lab09/13/2025 2:00 PM ESTVisit (SP) Office Hematology/Oncology [address] [place] [address] Jason Buchanan MD [address] [place] [address] [place] [address] 1 year follow upHealth MaintenanceDue DateLast DoneCommentsAnxiety Screening 1976Depression Sslzzzixy42/07/1977Hepatitis C Ybgjgjwuu64/07/1977 DTaP,Tdap,Td Vaccine (1 - Tdap)1977CT Pwtkjzmmnxks93/07/2004Cologuard (FIT-DNA)01/01/20047091Mcvgrhhtllg95/07/2004Colorectal Cancer Iiyglvgjl72/07/2004 Fecal Occult Blood01/01/2004Lipid Tanboxlio12/07/8572Mldkkfsxlszvd78/07/2004 Pneumococcal Vaccine: 50+ (1 of 1 - PCV)2008Mammogram Jvxwcsatq28/03/2023 08/29/2022one Density Mjarfigbr96/dvance Directive Discussion 10/27/2024Medicare Advantage Annual Wellness Visit5Covid-19 Vaccine ( season)/, 01/26/2021, 01/05/2021Influenza Vaccine (#1)/02/2021, 07/28/2021, 07/27/2020, Additional history exists Diabetes Qtiymoqmy99/19/7620244RSV Vaccine (1 - 1-dose 75+ series) 2033Shingrix ChnkztrNipnuegdn84/23/2021, 10/11/2020 Procedures Procedure NamePriorityDate/TimeAssociated DiagnosisCommentsCOMPREHENSIVE METABOLIC WJCCOOuqkgsr05/19/2024 2:46 PM EST History of ductal carcinoma in situ (DCIS) of breast from Last 3 Months or Most Recently Relevant to Health Maintenance Results * (ABNORMAL) COMPREHENSIVE METABOLIC PANEL (09/14/2024 2:46 PM EST)Component ValueRef RangeTest MethodAnalysis TimePerformed AtPathologist Signature Protein, Total6.76.3 - 8.0 g/dL09/14/2024 3:18 PM EST[facility] LABAlbumin4.23.9 - 4.9 g/dL09/14/2024 3:18 PM [facility] LABCalcium, Total9.88.5 - 10.2 mg/dL09/14/2024 3:18 PM [facility] LABBilirubin, Total0.40.2 - 1.3 mg/dL 09/14/2024 3:18 PM [facility] LABAlkaline Ikkcdtpjvkr5530 - 123 U/L111/14/2023 3:18 PM [facility] HZNHYN52(H)13 - 35 U/L111/14/2023 3:18 PM [facility] SVLTSI63(H)7 - 38 U/L111/14/2023 3:18 PM [facility] IFNKsstsgd983(H)74 - 99 mg/dL09/14/2024 3:18 PM [facility] LABComment: The [place] Diabetes Association (ADA) provides guidance for cutoff values for fasting glucose andrandom glucose. The ADA defines fasting as no [...] Standards of Medical Care in Diabetes 2016, [place] Diabetes Association. Diabetes Care. 2016.39(Suppl 1). BPZ113 - 21 mg/dL09/14/2024 3:18 PM [facility] LAB Creatinine0.710.58 - 0.96 mg/dL09/14/2024 3:18 PM [facility] UOLEdbocm352666 - 144 mmol/L111/14/2023 3:18 PM [facility] LABPotassium4.33.7 - 5.1 mmol/L111/14/2023 3:18 PM EST[facility] OPSIcvmaecc25588 - 107 mmol/L111/14/2023 3:18 PM EST [facility] ROOEG69227 - 30 mmol/L111/14/2023 3:18 PM EST [facility] LABAnion Tbq279 - 15 mmol/L111/14/2023 3:18 PM [facility] LABEstimated Glomerular Filtration Rate94 >=60 mL/min/1.73m 09/14/2024 3:18 PM ESTNOR[facility]CH[facility] LABComment:Estimated Glomerular Filtration Rate (eGFR) is calculated using the 2020 CKD-EPI creatinine equation. This equation utilizes serum creatinine, sex, and age as parameters. The creatinine assay has traceable calibration to isotope dilution- mass spectrometry. Refer to KDIGO guidelines for clinical interpretation. In patients with unstable renal function, e.g. those with acute kidney injury, the eGFRmay not accurately reflect actual GFR.Specimen (Source)Anatomical Location / LateralityCollection Method / VolumeCollection TimeReceived TimeBloodBLOOD SPECIMEN / UnknownVenipuncture / Rjvmlyc6809/14/2024 2:46 PM EST09/14/2024 2:46 PM EST Narrative Authorizing ProviderResult TypeResult StatusAdarsh Vennepureddy MDLABORATORY Final ResultPerforming OrganizationAddressCity/State/ZIP CodePhone Number [facility] [address] [place] [address] from Last 3 Months or Most Recently Relevant to Health Maintenance Insurance Care Teams Team MemberRelationshipSpecialtyStart DateEnd Date Des Odell MD [address] [place] [address] PCP - GeneralFamily Medicine07/22/23
--- OUTSIDE RECORDS SUMMARY | 2025-09-02 10:39 | XMS_ITS | CCD ---
Author Organization [facility] Care Team Providers Care Commercial Loan Administrator Name Role Phone PHYSICIAN, DEFAULT Unavailable Unavailable PHYSICIAN, DEFAULT Unavailable Unavailable LC BENTLEY Unavailable Unavailable LC BENTLEY Unavailable Unavailable LC PLATT Unavailable Unavailable LC PLATT Unavailable Unavailable [place] Unavailable Unavailable LC BENTLEY Unavailable Unavailable [place] Unavailable Unavailable LOYD SCOTT Unavailable Unavailable Ventura Claudio Attending Provider [phone] NO FAMILY, PHYSICIAN Primary Care Provider Unava ilable ALEXANDRA CASTANEDA Primary Care Physician [phone] Alexandra Castaneda MD Primary Care Provider Keshia Taylor Primary Care Physician Alexandra Castaneda MD Primary Care Provider CLARITZA GARCIA Attending Unavailable DR CHRISTINE ZULETA Primary Care Unavailable CLARITZA GARCIA Admitting Unavailable DR PATRICA MARTIN Consulting Unavailable CLARITZA GARCIA Consulting Unavailable DR CHRISTINE ZULETA Attending Unavailable DR CHRISTINE ZULETA Consulting Unavailable DR CHRISTINE ZULETA Primary Care Unavailable DR CHRISTINE ZULETA Admitting Unavailable Alexandra Castaneda MD Primary Care Provider [phone] Alexandra Castaneda MD Primary Care Provider Keshia Taylor MD Primary Care Provider JASON BUCHANAN Attending Unavailable CLARITZA GARCIA Referring Unavailable KESHIA TAYLOR Primary Care Unavailable KESHIA TAYLOR Primary Care Unavailable Keshia Taylor Primary Care Physician [phone] ChrisAUREAP Yaneth L Admitting Unavailable Chris, STITCH BURNISHER Yaneth L Attending Unavailable Chris, STITCH BURNISHER Yaneth L Attending Unavailable Chris, Yaneth L Attending Unavailable Keshia Taylor MD Primary Care Provider Keshia Taylor MD Attending Provider Keshia Taylor Attending Unavailable Keshia Taylor Primary Care Unavailable Keshia Taylor Admitting Unavailable Chris, Yaneth L Attending Unavailable Keshia Taylor. Attending Unavailable Keshia Taylor. Attending Unavailable Chris, Yaneth L Admitting Unavailable Chris, Yaneth L Attending Unavailable Chris, Yaneth L Attending Unavailable Chris, Yaneth L Attending Unavailable Chris, STITCH BURNISHER Yaneth L Attending Unavailable Chris, STITCH BURNISHER Yaneth L Admitting Unavailable Unavailable Unavailable Unavailable Allergies Allergy ClassificationReported Allergen(s)Allergy TypeDate of OnsetReaction(s) Facility (17 sources)Sulfonamides (Antibiotic); Translations: [SULFA (SULFONAMIDE ANTIBIOTICS)]Propensity to adverse reactions (disorder)18-36-9832[facility]JojSal[facility] (20 sources)RAGWEED; Translations: [RAGWEED]Propensity to adverse reactions (disorder)14-42-5282Yrbpzattupu, UnknownThe [facility] (1 source)No Known Allergies; Translations: [No Known Allergies]Propensity to adverse reactions (disorder)[facility] (15 sources)Sulfonamides (Antibiotic); Translations: [sulfa drugs]Drug allergy Eruption of skin (disorder)[facility] (1 source)Sulfonamides (Antibiotic)Drug allergy (disorder)01-70-2719[facility] Medications Current Medications MedicationDrug Class(es)DatesSig (Normalized)Sig (Original)alendronic acid 35 mg oral tablet (20 sources)BisphosphonateStart: 73-24-3713ryra 1 tablet by mouth every week alendronate 35 mg oral tablet 35 mg = 1 tab(s), Oral, qWeek, Refills(s) 0 Start Date: 02/20/22 Status: OrderedALPRAZolam 0.25 mg oral tablet (20 sources)BenzodiazepineStart: 35-36-1601zanq 1 tablet by mouth three times daily as needed for anxietyXanax 0.25 mg Tab 0.25 mg = 1 tab(s), Oral, TID, PRN as needed for anxiety, # 30 tab(s), Refills(s)0, Pharmacy: [facility], 156, cm, 01/27/23 14:37:00 EDT, Height/Length Dosing, 71.9, kg,01/27/23 14:37:00 EDT, Weight Dosing Start Date: 01/27/23 Status: OrderedComment on above: Take 0.25 mg by mouth at bedtime as needed.amLODIPine 5 mg oral tablet (20 sources)Dihydropyridine Calcium Channel BlockerStart: 42-59-2481zgpz 1 tablet by mouth once dailyamLODIPine 5 mg Tab See Instructions, Take 1 tablet by mouth once daily, # 90 tab(s), Refills(s) 1,Pharmacy: [facility], 156, cm, 01/27/23 14:37:00 EDT, Height/Length Dosing, 71.9, kg, 01/27/23 14:37:00 EDT, Weight Dosing Start Date: 07/07/24 Status: OrderedStart: 07-26-2020 take 1 tablet by mouth once dailyNorvasc 10 mg Tab See Instructions, 1 tab(s) Oral Daily, Refills(s) 0, High blood pressure Start Date: 07/26/20 Status: OrderedComment on above:Take 5 mg by mouth once daily.aspirin 81 mg oral capsule (18 sources)Platelet Aggregation Inhibitor, Nonsteroidal Anti-inflammatory Drug Start: 70-62-7368toyffan 81 mg oral capsule 81 mg = 1 cap(s), Oral, MonTueSat, Refills(s) 0 Start Date: 02/20/22 Status: OrderedADULT ASPIRIN ORAL Take 81 mg by mouth. ActiveComment on above:Take 81 mg by mouth.atorvastatin 40 mg oral tablet (18 sources)HMG-CoA Reductase InhibitorStart: 63-47-6147xhhf 1 tablet by mouth once dailyatorvastatin 40 mg Tab See Instructions, Take 1 tablet by mouth once daily, # 90 tab(s), Refills(s)0, Pharmacy: [facility], 156, cm, 01/27/23 14:37:00 EDT, Height/Length Dosing, 71.9, kg,01/27/23 14:37:00 EDT, Weight Dosing Start Date: 08/02/24 Status: OrderedStart: 67-57-5051ezkx 1 tablet by mouth once dailyatorvastatin 40 mg Tab 40 mg = 1 tab(s), Oral, Daily, # 30 tab(s), Refills(s) 0 Start Date: 07/25/22Status: OrderedComment on above:Take 40 mg by mouth once daily.benzonatate 100 mg oral capsule (11 sources)Non-narcotic AntitussiveStart: 23-90-6073hqbx 1 capsule by mouth three times dailyTessalon 100 mg Cap 100 mg = 1 cap(s), Oral, TID, Refills(s) 0 Start Date: 02/20/22 Status: OrderedCalcium Carbonate / vitamin D3 (13 sources)CALCIUM CARBONATE/VITAMIN D3 (CALCIUM 500 + D ORAL) Take by mouth. ActiveCALCIUM CARBONATE/VITAMIN D3 (CALCIUM 500 + D ORAL) Take by mouth. 0 ActiveComment on above:Take by mouth.cephalexin 500 mg oral capsule (1 source)Cephalosporin AntibacterialStart: 07-29-2022 End: 03-27-5039qfnv 1 capsule by mouth three times dailyKeflex 500 mg Cap 500 mg = 1 cap(s), Oral, TID, X 5 day(s), # 15 cap(s), Refills(s) 0, Pharmacy: [facility], 155, cm, 07/27/22 17:37:00 EDT, Height/Length Dosing, 82.1, kg, 07/27/22 17:37:00 EDT, Weight Dosing Start Date: 07/29/22 Stop Date: 08/03/22 Status: Orderedcholecalciferol 5500 unt / vitamin k2 0.2 mg oral tablet (10 sources)Vitamin DStart: 56-86-4793bdhi 1 tablet by mouth once dailyDOSOKAP 5,500-200 unit-mcg tab TAKE 1 TABLET BY MOUTH ONCE DAILY 06/29/2022 Active Comment on above:TAKE 1 TABLET BY MOUTH ONCE DAILYciprofloxacin 500 mg oral tablet (1 source)Quinolone AntimicrobialStart: 02-20-2022 End: 45-33-3230pspv 1 tablet by mouth every twelve hoursCipro 500 mg Tab 500 mg = 1 tab(s), Oral, q12hr, X 7 day(s), # 14 tab(s), Refills(s) 0, Pharmacy: [facility], 154, cm, 02/20/22 14:58:00 EDT, Height/Length Dosing, 85.7, kg, 02/20/22 14:58:00 EDT, Weight Dosing Start Date: 02/20/22 Stop Date: 02/27/22 Status: OrderedCo-Q10 (11 sources)Start: 69-29-5678rall 1 tablet by mouth three times dailyCo-Q10 1 tab, Oral, TID, Refills(s) 0, Prophylaxis Start Date: 07/26/20 Status: Ordered Essential oil tab (Immune) (9 sources)Start: 84-68-6179Piqhprafs oil tab (Immune) Essential oil tab (Immune), 1 tab, Oral, Daily Start Date: 08/04/20 Status: OrderedFlonase (7 sources)CorticosteroidStart: 62-64-6080Wlugxwc 1 spray(s), Nasal, Daily, Refill(s) 0, Allergy symptoms Start Date: 08/04/20 Status: Orderedlisinopril 20 mg oral tablet (20 sources)Angiotensin Converting Enzyme InhibitorStart: 34-64-5106gtfc 1 tablet by mouth once dailylisinopril 20 mg Tab 20 mg, Oral, Daily, # 90 EA, Refills(s) 3, Pharmacy: [facility], 156, cm, 01/27/23 14:37:00 EDT, Height/Length Dosing, 71.9, kg, 01/27/23 14:37:00 EDT, Weight Dosing Start Date: 07/07/24 Status: OrderedStart: 07-29-2022 End: 53-18-6174ftrkouxfug 20 mg Tab 20 mg = 1 tab(s), Tab, Oral, Start date 07/29/22 9:00:00 EDT, 07/28/22 2:36:00EDT Start Date: 07/29/22 Stop Date: 07/29/22 Status: CompletedStart: 70-50-4807njln 1 tablet by mouth once dailylisinopril (ZESTRIL, PRINIVIL) 20 mg tablet Take 20 mg by mouth once daily. 08/10/2015 ActiveComment on above:Take 20 mg by mouth once daily.Magnesium (13 sources)Start: 36-52-1823JODXNIUOF ORAL Take 250 mg by mouth. 08/04/2020 ActiveStart: 59-99-5588JZHIFIWPH ORAL Take 250 mg by mouth. 0 08/04/2020 Active Comment on above:Take 250 mg by mouth.magnesium gluconate 250 mg oral tablet (11 sources)Start: 72-24-4892rkhn 1 tablet by mouth once dailymagnesium gluconate 250 mg oral tablet 250 mg, 1 tab(s), Oral, Daily, Refill(s) 0, Prophylaxis Start Date: 08/04/20 Status: OrderedMedrol Dosepack 4 mg Tab (1 source)Start: 02-20-2022 End: 31-43-8028Vkdikh Dosepack 4 mg Tab = 1 packet(s), Oral, As Directed, as directed on package labeling, X 6 day(s), # 21 tab(s), Refills(s) 0, Pharmacy: [facility], 154, cm, 02/20/22 14:58:00 EDT, Height/Length Dosing, 85.7, kg, 02/20/22 14:58:00 EDT, Weight Dosing Start Date: 02/20/22 Stop Date: 02/26/22 Status: Orderedmelatonin 10 mg extended release oral tablet (20 sources)Start: 59-97-7695iejj 10 mg by mouth once daily at bedtimemelatonin 10 mg, Oral, Once a day (at bedtime), Refills(s) 0, Sleep Start Date: 07/26/20 Status: Orderedtake 1 tablet by mouth every twenty-four hours as neededmelatonin 3 mg tablet Take 3 mg by mouth at bedtime as needed. ActiveComment on above:Take 3 mg by mouth at bedtime as needed.methylcobalamin 1 mg oral tablet, disintegrating (2 sources)Start: 63-17-0583sylmfoaptwitgtp 1 mg oral tablet, disintegrating = 1 tab(s), Oral, MonWedThu, Refills(s) 0 Start Date: 11/08/24 Status: Ordered metoprolol tartrate 25 mg oral tablet (19 sources)beta-Adrenergic BlockerStart: 48-59-1285aowh 1 tablet by mouth twice dailyLopressor 25 mg oral tablet See Instructions, Take 1 tablet by mouth twice daily, # 180 tab(s), Refills(s) 0, Pharmacy: [facility], 156, cm, 01/27/23 14:37:00 EDT, Height/Length Dosing, 71.9, kg, 01/27/23 14:37:00 EDT, Weight Dosing Start Date: 08/02/24 Status: OrderedStart: 07-25-2022 End: 58-64-3382ymnv 1 tablet by mouth twice dailyMetoprolol tartrate 25 mg Tab 25 mg = 1 tab(s), Oral, BID, # 60 tab(s), Refills(s) 0 Start Date: 07/25/22 Status: OrderedComment on above:Take 25 mg by mouth twice daily.Mounjaro 5 mg/0.5 mL subcutaneous solution (7 sources)Start: 90-20-4742Vjszbvfb 5 mg/0.5 mL subcutaneous solution Refills(s) 0 Start Date: 07/08/22 Status: OrderedMOUNJARO 7.5 mg/0.5 mL pen injector (10 sources)Start: 57-00-3049UPWRONVH 7.5 mg/0.5 mL pen injector INJECT 1 ONCE A WEEK 08/25/2022 ActiveStart: 55-72-2593RWMGVSAE 7.5 mg/0.5 mL pen injector INJECT 1 ONCE A WEEK 0 08/25/2022 ActiveComment on above:INJECT 1 ONCE A WEEK Multi Vitamin+ (11 sources)Start: 58-99-8355rigu 1 tablet by mouth once dailyMulti Vitamin+ 1 tab, Oral, Daily, Refill(s) 0 Start Date: 07/26/20 Status: OrderedMultivitamin preparation (13 sources)MULTIVITAMIN (VITAMIN DAILY ORAL) Take by mouth. ActiveMULTIVITAMIN (VITAMIN DAILY ORAL) Take by mouth. 0 ActiveComment on above:Take by mouth. naproxen 250 mg oral tablet (20 sources)Nonsteroidal Anti-inflammatory DrugStart: 11-18-6841aqmngfdf (NAPROSYN) 250 mg tablet Take by mouth. 08/04/2020 ActiveStart: 59-53-3360kbav 2 tablets by mouth every twelve hoursnaproxen 250 mg tab = 2 tab(s), Oral, q12hr, Refills(s) 0, Pain Start Date: 08/04/20 Status: OrderedComment on above:Take by mouth.omeprazole 40 mg delayed release oral capsule (2 sources)Proton Pump InhibitorStart: 14-53-1906kngk 1 capsule by mouth once dailyomeprazole 40 mg Cap-DR See Instructions, Take 1 capsule by mouth once daily, # 90 cap(s), Refills(s) 0, Pharmacy: [facility], 153.6, cm, 11/08/24 11:33:00 EST, Height/Length Dosing, 87.5,kg, 11/08/24 11:33:00 EST, Weight Dosing Start Date: 11/08/24 Status: Orderedondansetron 4 mg disintegrating oral tablet (2 sources)Serotonin-3 Receptor AntagonistStart: 55-04-6581meguxlsngmt 4 mg Dis Tab See Instructions, DISSOLVE 1 TABLET IN MOUTH DIRECTED FOR 30 DAYS, # 90 tab(s), Refills(s) 0, Pharmacy: [facility], 153.6, cm, 11/08/24 11:33:00 EST, Height/Length Dosing, 87.5, kg, 11/08/24 11:33:00 EST, Weight Dosing Start Date: 11/08/24 Status: Ecpdafq51 hr orphenadrine citrate 100 mg extended release oral tablet (11 sources)Muscle RelaxantStart: 46-00-8828mqbo 1 tablet by mouth twice daily orphenadrine 100 mg ER Tab 100 mg = 1 tab(s), Oral, BID, # 60 tab(s), Refills(s) 0, Pharmacy: [facility], 153.6, cm, 11/08/24 11:33:00 EST, Height/Length Dosing, 87.5, kg, 11/08/24 11:33:00 EST, Weight Dosing Start Date: 11/08/24 Status: OrderedStart: 67-34-6668gveo 1 tablet by mouth twice daily orphenadrine 100 mg ER Tab 100 mg = 1 tab(s), Oral, BID, Refills(s) 0 Start Date: 02/20/22 Status: Orderedpantoprazole 20 mg delayed release oral tablet (7 sources)Proton Pump InhibitorStart: 08-65-1869uzzk 1 tablet by mouth twice dailypantoprazole DR (PROTONIX) 20 mg tablet take 1 tablet by mouth twice daily as directed 03/14/2023 ActiveComment on above:take 1 tablet by mouth twice daily as directedPrevagen Extra Strength (11 sources)Start: 90-29-6175akmv 50 ug by mouth once dailyPrevagen Extra Strength 50 mcg, Oral, Daily, Refills(s) 0 Start Date: 02/20/22 Status: Ordered semaglutide 1.7 mg/0.75 mL (1.7 mg dose) subcutaneous solution (1 source)Start: 02-20-2022 End: 45-85-3163ujbhen 1.7 mg by subcutaneous injection every weeksemaglutide 1.7 mg/0.75 mL (1.7 mg dose) subcutaneous solution 1.7 mg, SubCutaneous, qWeek, X 4 week(s), # 4 EA, Refills(s) 0, Pharmacy: [facility], 154, cm, 02/20/22 14:58:00 EDT, Height/Length Dosing, 85.7, kg, 02/20/22 14:58:00 EDT, Weight Dosing Start Date: 02/20/22 Stop Date: 03/20/22Status: Orderedubidecarenone 10 mg oral capsule (13 sources)take 1 capsule by mouth once dailyubidecarenone Q-10 (COENZYME Q-10) 10 mg cap Take 10 mg by mouth once daily. ActiveComment on above:Take 10 mg by mouth once daily.24 hr venlafaxine 75 mg extended release oral capsule (20 sources)Serotonin and Norepinephrine Reuptake InhibitorStart: 69-96-3210dgfi 1 capsule by mouth once dailyvenlafaxine 75 mg Cap-ER See Instructions, Take 1 capsule by mouth once daily, # 90 cap(s), Refills(s) 0, Pharmacy: [facility], 153.6, cm, 11/08/24 11:33:00 EST, Height/Length Dosing, 87.5, kg, 11/08/24 11:33:00 EST, Weight Dosing Start Date: 11/08/24 Status: OrderedStart: 31-94-9410enzv 1 capsule by mouth once dailyvenlafaxine ER (EFFEXOR XR) 75 mg 24 hr capsule Take 1 capsule by mouth once daily 90 capsule 11/05/2023 ActiveStart: 01-09-2022 End: 94-26-4195sybl 1 capsule by mouth once dailyvenlafaxine ER (EFFEXOR XR) 75 mg 24 hr capsule Take 1 capsule by mouth once daily 90 capsule 0 03/25/2023 07/16/2023 DiscontinuedStart: 11-19-0672cvae 75 mg by mouth once dailyEffexor XR 75 mg, Oral, Daily, Refills(s) 0, Depression Start Date: 07/26/20 Status: Ordered Comment on above:Take 1 capsule by mouth once dailyVitamin B Complex (10 sources)vitamin B complex (VITAMIN B-50 COMPLEX ORAL) Take by mouth once daily. Activevitamin B complex (VITAMIN B-50 COMPLEX ORAL) Take by mouth once daily. 0 ActiveComment on above:Take by mouth once daily.Vitamin B Complex oral capsule (4 sources)Start: 76-14-5642Wdmrkwj B Complex oral capsule Refill(s) 0 Start Date: 08/05/22 Status: Ordered Completed/Discontinued Medications MedicationDrug Class(es)DatesSig (Normalized)Sig (Original)B-12 1000 mcg oral tablet (9 sources)Start: 58-18-3235Y-12 1000 mcg oral tablet 1,000 microgram = 1 tab(s), Oral, WedSun, Refills(s) 0, Prophylaxis StartDate: 07/26/20 Status: Orderedeflornithine 139 mg/ml topical cream (6 sources)Antiprotozoal, Decarboxylase InhibitorStart: 48-87-9733XTFVDY 13.9 % crea APPLY CREAM TWICE DAILY 5 04/09/2019 ActiveComment on above:APPLY CREAM TWICE DAILYfluconazole 150 mg oral tablet (2 sources)Azole AntifungalStart: 06-57-5997gewu 4 tablets by mouth onceDiflucan 150 mg Tab 150 mg = 1 tab(s), Oral, Once, take 1 tab on day one and 1 tabon day four, # 2 tab(s), Refills(s) 1, Pharmacy: [facility], 153.6, cm, 11/08/24 11:33:00 EST, Height/Length Dosing, 87.5, kg, 11/08/24 11:33:00 EST, Weight Dosing Start Date: 11/08/24 Status: Orderediv contrast (will be provided with radiology test) (4 sources)Start: 05-22-2023 End: 91-36-2659zq contrast (will be provided with radiology test) MRI Breast VALENTIN Inject, intravenously, once for 1dose. No IV access, insert saline lock prior to the beginning of sedation, infusion, injection of imaging exam. Discontinue saline lock post exam. If Pt has a central line or IVAD, may access for admi nistration according to line specific nursing protocol. Once exam is complete flush line and de-access according to line specific nursing protocol in the MR contrast administration guidelines link 1 Each 0 05/22/2023 05/23/2023 Comment on above:MRI Breast VALENTIN Inject, intravenously, once for 1 dose. No [...] in the MR contrast administration guidelines link vitamin b12 1 mg oral tablet (3 sources)Vitamin V06gypz 1 tablet by mouth two times weeklycyanocobalamin (VITAMIN B-12) 1,000 mcg tab Take 1,000 mcg by mouth twice a week. 0 Active Comment on above:Take 1,000 mcg by mouth twice a week. Problems Active Problems Problem ClassificationProblemDateDocumented DateEpisodic/ChronicCancer of breast (20 sources)Intraductal carcinoma in situ of left breast; Translations: [Intraductal carcinoma in situ of breast]Onset: 012719-03-8593Xokzcki Complications of surgical procedures or medical care (4 sources)Other complications of procedures, not elsewhere classified, initial encounter; Translations: [OTH COMPLICATIONS OF PROCEDURES, NEC, INIT]Onset: 66-83-0699BmbeyvhcPlbyungp atherosclerosis and other heart disease (1 source)Coronary atherosclerosis; Translations: [Atherosclerotic heart disease of algaaciq coronary artery without angina pectoris]Onset: 02-73-5995Ibhwzch Disorders of lipid metabolism (1 source)Hyperlipidemia; Translations: [Hyperlipidemia, unspecified]Onset: 49-27-0149PdglgxxFgkjjmpqkh disorders (11 sources)Gastroesophageal reflux disease without esophagitisOnset: 03-22-2020 41-41-9681QoslzmcIkzeolikl hypertension (12 sources)Essential (primary) hypertension; Translations: [Essential hypertension]Onset: 050082-28-0520KtzzakaVqvxh and electrolyte disorders (3 sources)Acidosis; Translations: [Other acidosis]Onset: 21-99-2509Xsmotzcf Headache; including migraine (1 source)Headache; Translations: [Headache, unspecified]Onset: 07-27-2022 EpisodicHypertension with complications and secondary hypertension (1 source)Hypertensive urgency ; Translations: [Hypertensive urgency]Onset: 43-15-1588FdbrlysRhdrhrpznfgrl and screening for infectious disease (1 source)Encounter for screening for human papillomavirus (HPV); Translations: [ENC SCREENING HUMAN PAPILLOMAVIRUS]Onset: 16-64-9611QonzjfkdNrrbgas and fatigue (10 sources)Postexertional mdxidzl88-29-5382QxhwnddqIyin disorders (12 sources)Major depression, single episode; Translations: [Depressive disorder]Onset: 757508-47-0356BxitmxbEmhpmslfitkt breast conditions (3 sources)Breast lump; Translations: [Unspecified lump in unspecified breast] 21-33-0242XeggvexhDfggc gastrointestinal disorders (1 source)Bariatric surgery status; Translations: [BARIATRIC SURGERY STATUS] Onset: 21-39-3449FyjpxpxuKzkim nervous system disorders (1 source)Metabolic encephalopathy; Translations: [Metabolic encephalopathy] Onset: 96-70-3363DucmdqmQmqvx nutritional; endocrine; and metabolic disorders (11 sources)Calorie -15-0664SfbywiiJepiy nutritional; endocrine; and metabolic disorders (1 source)Obesity; Translations: [Obesity, unspecified]Onset: 18-81-4951Ofitkoq Other nutritional; endocrine; and metabolic disorders (1 source)Obese class II; Translations: [Body mass index (BMI) 37.0-37.9, adult] Onset: 84-57-7109DelzbqvJfycl nutritional; endocrine; and metabolic disorders (2 sources)Excessive eating - polyphagia; Translations: [Polyphagia]Onset: 64-73-3680JbaopviiXmutb screening for suspected conditions (not mental disorders or infectious disease) (9 sources)Encounter for screening for malignant neoplasm of cervix; Translations: [Encounter for screening mammogram for malignant neoplasm of breast]Onset: 97-50-5717DqsqdfdaTorpt upper respiratory disease (1 source)Allergic rhinitis; Translations: [Allergic rhinitis, unspecified] Onset: 87-73-1418JddfxwpNydrl upper respiratory infections (8 sources)Acute upper respiratory infection; Translations: [Acute upper respiratory infection, unspecified]Onset: 70-44-6175ShsffyihMcutszba codes; unclassified (1 source)Obstructive sleep apnea syndrome; Translations: [Obstructive sleep apnea (adult) (pediatric)]Onset: 20-33-2613NxnwnyeOjxoxhtz codes; unclassified (1 source)Procedure carried out on subject; Translations: [Encounter for prophylactic measures, unspecified]Onset: 81-16-9107TgukemvgNaubjylp codes; unclassified (1 source)Family history of malignant neoplasm of breast; Translations: [FAMILY HX MALIG NEOPLASM OF BREAST]Onset: 69-50-7053AbobrnpfDnxnzxiu codes; unclassified (1 source)Family history of malignant neoplasm of other organs or systems; Translations: [FAM HX MALIG NEOPLASM OTH ORGN/SYS]Onset: 90-44-4099Vfbkrzgk Residual codes; unclassified (1 source)Patient encounter status; Translations: [Other specified health status]Onset: 68-58-5373YbugffceFdbewfarzkk; intervertebral disc disorders; other back problems (3 sources)Low back pain; Translations: [Low back pain, unspecified]Onset: 92-89-8908OtptqhjqAnguknvtmlif (1 source)Personal history of irradiation; Translations: [PERSONAL HISTORY OF IRRADIATION]Onset: 23-41-9388NnlwuozdBepsyrkwgxfo (2 sources)Unknown / UNK(Unknown)Onset: 77-59-3313Zlfbcrulhdlv (2 sources)Patient encounter ejbwts04-45-0447Efvdlbapfdcp (1 source)Low back pain, unspecified; Translations: [Low back pain, unspecified] Onset: 62-75-7850Ixntxny tract infections (1 source)Urinary tract infectious disease; Translations: [Urinary tract infection, site not specified]Onset: 50-38-9606Okogfexq Past or Other Problems Problem ClassificationProblemDateDocumented DateEpisodic/ChronicCalculus of urinary tract (11 sources)Ureteric stoneOnset: 905251-08-6579ErigsnojCadzmt of breast (6 sources)H/O: neoplasm; Translations: [Personal history of in-situ neoplasm of breast]Onset: 70-31-6832FtsmopowXrfuj gastrointestinal disorders (11 sources)History of bariatric surgical procedureOnset: Episodic Results Test NameValueInterpretationReference RangeFacility.Interpretation:on 07-07-2025 Interpretation:CommentInvalid Interpretation CodeSumma Health [facility] Comment on above:Result Comment: Not infected with HCV unless early or acute infection is suspected (which may be delayed in an immunocompromised individual), or other evidence exists to indicate HCV infection. Performed at: [address] [id number] PhD Jojo GaminoPerformed By: #### [id number] #### [facility] [address], [place] [address]EYW Antibody RFX to Quant PCRon [id number] AbNon-Reactive Invalid Interpretation CodeNon ReactiveSumma Health Akron CampusComment on above:Result Comment: Performed at: [address] [id number] PhD Jojo Aguilarformed By: #### [id number] #### [facility] [address], [place] [address]SAF w/ Auto Diffon [id number] Absolute0.1 E9/LNormal 0.0-0.2FSt. Anthony's HospitalComment on above:Performed By: #### [id number] #### [facility] [address], [place] [address]Elqncxofe/100 WBC (Bld)0.9 %Normal0.0-2.0Sum[facility] Health [facility] CampusComment on above:Performed By: #### [id number] #### [facility] [address], [place] [address]Ucf Absolute0.2 E9/LNormal0.0-0.5[facility] [facility] Comment on above:Performed By: #### [id number] #### [facility] [address], [place] [address]Ftmuudrrnpu/100 WBC (Bld)2.4 %Normal0.0-8.0[facility] CampusComment on above:Performed By: #### [id number] #### [facility] [address] [place] [address] 38048Wmbnutieyxd distribution width (RBC) [Ratio]14.0 %Normal 10.9-14.2FSt. Anthony's HospitalComment on above:Performed By: #### [id number] #### [facility] [address] [place] [address] 09452Alarhhexrc (Bld) [Volume fraction]42.7 %Aollik47.0-46.0[facility] CampusComment on above:Performed By: #### [id number] #### [facility] [address] [place] [address] 72354Yixmmzoilm (Bld) [Mass/Vol]14.5 g/nQFguwcb34.0-16.0[facility] CampusComment on above:Performed By: #### [id number] #### [facility] [address] [place] [address] 29489Hznwz Absolute1.7 E9/LNormal1.0-4.0[facility] Comment on above:Performed By: #### [id number] #### [facility] [address] [place] [address] 87153Fhrsijeyicu/100 WBC (Bld)27.1 %Jxqyvk76.0-50.0[facility] CampusComment on above:Performed By: #### [id number] #### [facility] [address] [place] [address] 83144KSJ (RBC) [Entitic mass]29.5 suHefcfy57.0-34.0[facility] CampusComment on above:Performed By: #### [id number] #### [facility] [address], [place] [address]BLJF (RBC) [Mass/Vol]34.0 g/eWZietpl28.4-36.0[facility] CampusComment on above:Performed By: #### [id number] #### [facility] [address] [place] [address] 25533QZK (RBC) [Entitic vol]86.9 mMDvatoc92.0-100.0[facility] CampusComment on above:Performed By: #### [id number] #### [facility] [address] [place] [address] 79490Xmop Absolute0.4 E9/LNormal0.2-1.0[facility] Comment on above:Performed By: #### [id number] #### [facility] [address] [place] [address] 40032Yrgwmbqnx/100 WBC (Bld)6.0 %Normal4.0-14.0[facility] CampusComment on above:Performed By: #### [id number] #### [facility] [address] [place] [address] 25091Dthcbh Absolute4.1 E9/LNormal2.0-7.5FSt. Anthony's Hospital Comment on above:Performed By: #### [id number] #### [facility] [address] [place] [address] 96744Qjjnkn Auto63.6 %Ptvbbt33.0-75.0[facility] Comment on above:Performed By: #### [id number] #### [facility] [address] [place] [address] 29784Kdnphxii666.0 E9/PVjhftv975.0-500.0[facility] Comment on above:Performed By: #### [id number] #### [facility] [address] [place] [address]Jaxszfmy mean volume (Bld) [Entitic vol]7.1 fLNormal6.4-10.8 [facility] CampusComment on above:Performed By: #### [id number] #### [facility] [address], [place] [address]ONO7.9 E12/LNormal4.3-5.9[facility] CampusComment on above:Performed By: #### [id number] #### [facility] [address], [place] [address]ZNU3.4 E9/LNormal4.0-11.0[facility] CampusComment on above:Performed By: #### [id number] #### [facility] [address], [place] [address]OTTne 50-22-8346Paknnmo [Mass/Vol]4.3 g/dLNormal3.3-5.0[facility] CampusComment on above:Performed By: #### [id number] #### [facility] [address] [place] [address] 39[address]Ttzszgf/Globulin [Mass ratio]1.9 {ratio}Normal1.1-2.2FSt. Anthony's HospitalComment on above:Performed By: #### [id number] #### [facility] [address], [place] [address]Khs Phos52 Int._Unit/JSgkvrv97-84WvrwdtSumma Health [facility]ron Campus Comment on above:Performed By: #### [id number] #### [facility] [address], [place] [address]TLA38 Int._Unit/LNormal6-46[facility] CampusComment on above:Performed By: #### [id number] #### [facility] [address], [place] [address]Stpph gap [Moles/Vol]11 mmol/LNormal6-16[facility] CampusComment on above:Performed By: #### [id number] #### [facility] [address], [place] [address]TVQ92 Int._Unit/LNormal5-43[facility] CampusComment on above:Performed By: #### [id number] #### [facility] [address], [place] [address]Rsyj Total0.7 mg/dLNormal0.0-1.1FSt. Anthony's Hospital Comment on above:Performed By: #### [id number] #### [facility] [address], [place] [address]SVA/Creat Ratio18 No NxfogHyqvjc86-54OyixmxSumma Health Akron CampusComment on above:Performed By: #### [id number] #### [facility] [address], [place] [address]Hszwibo [Mass/Vol]9.2 mg/dLNormal8.9-11.1FSt. Anthony's HospitalComment on above:Performed By: #### [id number] #### [facility] [address], [place] [address]Bnjuzovl [Moles/Vol]108 mmol/IMttlof299-967DekmhkSumma Health Akron CampusComment on above:Performed By: #### [id number] #### [facility] [address], [place] [address]KC1 [Moles/Vol]26 mmol/APhgiwj57-06LodfbvSumma Health Akron Campus Comment on above:Performed By: #### [id number] #### [facility] [address], [place] [address]Sykqmqcoyw [Mass/Vol]0.8 mg/dLNormal0.5-1.3FSt. Anthony's HospitalComment on above:Performed By: #### [id number] #### [facility] [address], [place] [address]Aynmcieh (S) [Mass/Vol]2.3 g/dLNormal1.4-4.0[facility] CampusComment on above:Performed By: #### [id number] #### [facility] [address], [place] [address]Yakgvwl [Mass/Vol]92 mg/lESpagan50-507QvtlcgSumma Health Akron CampusComment on above:Performed By: #### [id number] #### [facility] [address], [place] [address]Veuphgkmh [Moles/Vol]3.9 mmol/LNormal3.5-5.3FSt. Anthony's HospitalComment on above:Performed By: #### [id number] #### [facility] [address], [place] [address]Yzvgqct [Mass/Vol]6.6 g/dLNormal6.0-7.8[facility] CampusComment on above:Performed By: #### [id number] #### [facility] [address], [place] [address]Zghdvj [Moles/Vol]141 mmol/SLbvyvx104-289GzlhlhSumma Health Akron CampusComment on above:Performed By: #### [id number] #### [facility] [address] [place] [address]Xqwj nitrogen [Mass/Vol]14 mg/dLNormal5-21[facility] CampusComment on above:Performed By: #### [id number] #### [facility] [address] [place] [address]UFVwi 71-88-7049TBF Qn1.64 m[IU]/LNormal0.34-5.60[facility] CampusComment on above:Performed By: #### [id number] #### [facility] [address] [place] [address]Krs B12on 34-45-6048Suyjregfd (Vitamin B12) [Mass/Vol]898 pg/mL Fnfatw35-0426JikanzSumma Health Akron CampusComment on above:Performed By: #### [id number] #### [facility] [address], [place] [address]Sxirinq D 25 Hydroxyon 71-03-8283Smfubgo D 25 Yeblkyk90.0 ng/mL Bpavte52.0-100.0[facility] CampusComment on above:Performed By: #### [id number] #### [facility] [address], [place] [address]cQRVgt 33-44-9620nUVO97 mL/min/1.73 v9Ztiowx>=59[facility] CenterComment on above:Performed By: #### [id number] #### [facility] [address] [place] [address]Wymchkkgqi Visit Summaryon 91-60-0662Ysppfqfowu Visit Summary Ambulatory Visit Summary CLARIBEL HAQUE :1960 Visit Date:06/22/2025 Ambulatory Visit Instructions Your Diagnosis Encounter for initial annual wellness visit (AWV) in Medicare patient Major depressive disorder, recurrent, moderate Encounter for hepatitis C screening test for low risk patient Essential hypertension Hyperlipidemia Osteopenia Breast cancer screening by mammogram Family history of diabetes mellitus Obesity due to excess calories Tests Performed BD Bone Density DEXA -- Results Pending -- MA Mamm Screen w/CAD if perf and 3D Valentin -- Results Pending -- Please visit your patient portal for your results or contact your primary care physician. Your Care Team Attending Physician - Jose R ALEJANDRA, Keshia Castillo Primary Care Physician - Yaneth Diaz This Is Your Medications List [facility] [place], [place] Prescription (SEMAGLUTIDE 0.5 MG/0.2 ML INJECTION) alendronate (alendronate 35 mg Tab) alprazolam (Xanax 0.25 mg Tab) amlodipine (amLODIPine 5 mg Tab) aspirin (aspirin 81 mg oral capsule) atorvastatin (atorvastatin 40 mg Tab) benzonatate (Tessalon 100 mg Cap) cholecalciferol (Prevagen Extra Strength) fluconazole (Diflucan 150 mg Tab) lisinopril (lisinopril 20 mg Tab) magnesium gluconate (magnesium gluconate 250 mg oral tablet) methylcobalamin (methylcobalamin 1 mg oral tablet, disintegrating) metoprolol (Lopressor 25 mg oral tablet) multivitamin (Dosokap oral tablet) multivitamin (Multi Vitamin+) multivitamin (Vitamin B Complex oral capsule) naproxen (naproxen 250 mg tab) nystatin topical (nystatin Top 100,000 units/g Pwdr) omeprazole (omeprazole 40 mg Cap-DR) ondansetron (ondansetron 4 mg Dis Tab) orphenadrine (orphenadrine 100 mg ER Tab) ubiquinone (Co-Q10) venlafaxine (venlafaxine 75 mg Cap-ER) Procedures Performed Cardiac catheterization (07/25/2022), Colonoscopy (2019), Breast reduction (2017), Face lift (2017), Breast surgery (2015), Gastric bypass (2014), Hysterectomy (2014), Lumpectomy of left breast (2012), Tonsillectomy (1970). Discharge Vitals Heart Rate (Peripheral) 80 Respiratory Rate 18 Blood Pressure 130/84 Height 153.6 cm Height 60 in Weight 84.5 kg Weight 186.29 lb BMI 35.82 What to do next Scheduled Follow-Up Appointments Friday2025 1:20 PM EST With: Yaneth Diaz Where: [address] [id number]- Friday2025 11:00 AM EDT With: Where: [address] [address]- You Need to Complete the Following HCV Antibody RFX to Quant PCR, Blood, Routine collect, 06/22/25, Order for future visit, Lab Collect, Encounter for hepatitis C screening test for low risk patient, Print Label By Order Location Medications What How Much When Why Instructions Unchanged alendronate (alendronate 35 mg Tab) See instructions Take 1 tablet by mouth once a week Unchanged alprazolam (Xanax 0.25 mg Tab) 1 Tablets By Mouth 3 times a day as needed for as needed for anxiety Unchanged amlodipine (amLODIPine 5 mg Tab) See instructions Take 1 tablet by mouth once daily Unchanged aspirin (aspirin 81 mg oral capsule) 1 Capsules By Mouth Friday & Friday Unchanged atorvastatin (atorvastatin 40 mg Tab) See instructions Take 1 tablet by mouth once daily Unchanged benzonatate (Tessalon 100 mg Cap) 1 Capsules By Mouth 3 times a day Unchanged cholecalciferol (Prevagen Extra Strength) 50 Microgram By Mouth Every day Unchanged fluconazole (Diflucan 150 mg Tab) 1 Tablets By Mouth Once Well woman exam Cervical cancerscreening Excessive dietary caloric intake Adult BMI 37.0- 37.9 kg/sq m Non-smoker take 1 tab on dayone and 1 tabon day four Unchanged lisinopril (lisinopril 20 mg Tab) 20 Milligram By Mouth Every day Unchanged magnesium gluconate (magnesium gluconate 250 mg oral tablet) 1 Tablets By Mouth Every day Unchanged methylcobalamin (methylcobalamin 1 mg oral tablet, disintegrating) 1 Tablets By Mouth Friday & Unchanged metoprolol (Lopressor 25 mg oral tablet) See instructions Take 1 tablet by mouth twice daily Unchanged Mis Prescription (SEMAGLUTIDE 0.5 MG/ 0.2 ML INJECTION) INJECT 20 UNITS SUBCUTANEOUSLY ONCE WEEKLY Unchanged multivitamin (Dosokap oral tablet) 1 Tablets By Mouth Every day Unchanged multivitamin (Multi Vitamin+) 1 tab By Mouth Every day Unchanged multivitamin (Vitamin B Complex oral capsule) Unchanged naproxen (naproxen 250 mg tab) 2 Tablets By Mouth Every 12 hours Unchanged nystatin topical (nystatin Top 100,000 units/ g Pwdr) 1 Application Topical 3 times a day Unchanged omeprazole (omeprazole 40 mg Cap-DR) See instructions Take 1 capsule by mouth once daily Unchanged ondansetron (ondansetron 4 mg Dis Tab) See instructions DISSOLVE 1 TABLET IN MOUTH DIRECTED FOR 30 DAYS Unchanged o (more content not included)...[facility] Ambulatory Visit SummaryAmbulatory Visit Summary CLARIBEL HAQUE Mary Jane :1960 Visit Date:06/22/2025 Ambulatory Visit Instructions Your Care Team Attending Physician - Yaneth Diaz Primary Care Physician - Keshia Taylor MD. This Is Your Medications List [facility] [place] [place] Prescription (SEMAGLUTIDE 0.5 MG/0.2 ML INJECTION) alendronate (alendronate 35 mg Tab) alprazolam (Xanax 0.25 mg Tab) amlodipine (amLODIPine 5 mg Tab) aspirin (aspirin 81 mg oral capsule) atorvastatin (atorvastatin 40 mg Tab) benzonatate (Tessalon 100 mg Cap) cholecalciferol (Prevagen Extra Strength) fluconazole (Diflucan 150 mg Tab) lisinopril (lisinopril 20 mg Tab) magnesium gluconate (magnesium gluconate 250 mg oral tablet) methylcobalamin (methylcobalamin 1 mg oral tablet, disintegrating) metoprolol (Lopressor 25 mg oral tablet) multivitamin (Dosokap oral tablet) multivitamin (Multi Vitamin+) multivitamin (Vitamin B Complex oral capsule) naproxen (naproxen 250 mg tab) nystatin topical (nystatin Top 100,000 units/g Pwdr) omeprazole (omeprazole 40 mg Cap-DR) ondansetron (ondansetron 4 mg Dis Tab) orphenadrine (orphenadrine 100 mg ER Tab) ubiquinone (Co-Q10) venlafaxine (venlafaxine 75 mg Cap-ER) Procedures Performed Cardiac catheterization (07/25/2022), Colonoscopy (2019), Breast reduction (2017), Face lift (2017), Breast surgery (2015), Gastric bypass (2014), Hysterectomy (2014), Lumpectomy of left breast (2012), Tonsillectomy (1970). Discharge Vitals Temperature (Temporal Artery) 36.3 ???C Heart Rate (Peripheral) 80 Respiratory Rate 18 Blood Pressure 130/84 Height 153.6 cm Height 60 in Weight 84.5 kg Weight 186.29 lb BMI 35.82 What to do next Scheduled Follow-Up Appointments Friday 11:00 AM EDT Where: [facility] [place] [address]- Medications What How Much When Why Instructions Unchanged alendronate (alendronate 35 mg Tab) See instructions Take 1 tablet by mouth once a week Unchanged alprazolam (Xanax 0.25 mg Tab) 1 Tablets By Mouth 3 times a day as needed for as needed for anxiety Unchanged amlodipine (amLODIPine 5 mg Tab) See instructions Take 1 tablet by mouth once daily Unchanged aspirin (aspirin 81 mg oral capsule) 1 Capsules By Mouth Friday & Friday Unchanged atorvastatin (atorvastatin 40 mg Tab) See instructions Take 1 tablet by mouth once daily Unchanged benzonatate (Tessalon 100 mg Cap) 1 Capsules By Mouth 3 times a day Unchanged cholecalciferol (Prevagen Extra Strength) 50 Microgram By Mouth Every day Unchanged fluconazole (Diflucan 150 mg Tab) 1 Tablets By Mouth Once Well woman exam Cervical cancerscreening Excessive dietary caloric intake Adult BMI 37.0- 37.9 kg/sq m Non-smoker take 1 tab on dayone and 1 tabon day four Unchanged lisinopril (lisinopril 20 mg Tab) 20 Milligram By Mouth Every day Unchanged magnesium gluconate (magnesium gluconate 250 mg oral tablet) 1 Tablets By Mouth Every day Unchanged methylcobalamin (methylcobalamin 1 mg oral tablet, disintegrating) 1 Tablets By Mouth Friday & Unchanged metoprolol (Lopressor 25 mg oral tablet) See instructions Take 1 tablet by mouth twice daily Unchanged Misc Prescription (SEMAGLUTIDE 0.5 MG/ 0.2 ML INJECTION) INJECT 20 UNITS SUBCUTANEOUSLY ONCE WEEKLY Unchanged multivitamin (Dosokap oral tablet) 1 Tablets By Mouth Every day Unchanged multivitamin (Multi Vitamin+) 1 tab By Mouth Every day Unchanged multivitamin (Vitamin B Complex oral capsule) Unchanged naproxen (naproxen 250 mg tab) 2 Tablets By Mouth Every 12 hours Unchanged nystatin topical (nystatin Top 100,000 units/ g Pwdr) 1 Application Topical 3 times a day Unchanged omeprazole (omeprazole 40 mg Cap-DR) See instructions Take 1 capsule by mouth once daily Unchanged ondansetron (ondansetron 4 mg Dis Tab) See instructions DISSOLVE 1 TABLET IN MOUTH DIRECTED FOR 30 DAYS Unchanged orphenadrine (orphenadrine 100 mg ER Tab) 1 Tablets By Mouth 2 times a day Unchanged ubiquinone (Co-Q10) 1 tab By Mouth 3 times a day Unchanged venlafaxine (venlafaxine 75 mg Cap-ER) See instructions Take 1 capsule by mouth once daily Allergies sulfa drugs (Itch, Rash) Ragweed Problems Ongoing - Any problem that you are currently receiving treatment for. Anxiety Bariatric surgery status Calculus of ureter Coronary artery disease Essential hypertension Excessive dietary caloric intake Excessive postexertional fatigue Gastro-esophageal reflux disease without esophagitis History of ductal carcinoma in situ of breast Hyperlipidemia Low back pain Major depressive disorder, single episode, unspecified Morbid (severe) obesity due to excess calories Obstructive sleep apnea Patient Survey You may receive a survey via text or e-mail asking about your office visit. Please share your experience with us by completing yo (more content not included)...[facility] Medicine Office/Clinic Note on [id number] Medicine Office/Clinic NoteFapratt clinic / [facility]Clinic Note Chief Complaint Initial Medicare Wellness Review of Systems PHQ Score Initial Depression Screen Score: 1 SCORE Physical Exam Vitals & Measurements HR: 80(Peripheral) RR: 18 BP: 130/84 SpO2: 97% HT: 153.6 cm HT: 60 in WT: 186.29 lb WT: 84.5 kg BMI: 35.82 Assessment/Plan 1. Encounter for initial annual wellness visit (AWV) in Medicare patient (Z00.00: Encounter for general adult medical examination without abnormal findings) Patient in office today for her Initial Medicare Wellness Visit. A customized and personalized print out of all the current AHRQ USPSTF???s recommendations for preventative services and all current CDC recommended immunizations, relevant risk recommendations and the following patient brochures weregiven. Reviewed What can I expect during my Medicare preventative care visit CDC-Falls Prevention and home safety screening reviewed. Patient denies any falls in last 12 months, voices no worry about falling, exhibits no problems with sitting and standing. Pt voices understanding with keeping walk way area free of clutter to prevent tripping and/or falling. [place] Advance Directives reviewed, at home. Encouraged to bring in to have documents scanned into chart. Patient is an organ donor. Patient denies any problems with ADL???s and Instrumental ADL???s. Cognitive screening completed with memory and clock face drawing. Recited 3/3 memory words. Immunization Record reviewed with the patient. 2 COVID vaccines have been administered, 2 boosters.Immunization record is up to date. Allergies and medications reviewed and up to date. Patient denies concerns with taking medication as prescribed, reviewed OTC medications with patient with medication list up to date. Blood tests were reviewed: Discussed what tests need to be updated. Colonoscopy up to date, last was 08/08/[address] Alfred. 2 year repeat. Reviewed concerns with bladder control over past 6 months with no concerns. Reviewed pain symptoms with patient: Patient denies pain today. Reviewed all outside providers that patient follows. Last visit summary notes available in chart and/or have been requested. Follow up scheduled: 12/21/2025 AWV has been scheduled: 06/26/2026 Medicare provides yearly screening for alcohol and depression concerns. This is completed during our Medicare wellness visit for those who do not have a current diagnosis of depression or concerns with alcohol use. I spent a total of (12) minutes on this date of service which included preparing to see the patient, face to face patient care, completing clinical documentation, obtaining and/or reviewing separately obtained history, counseling and educating the patient with handouts. Explanations were provided with reviewing questionnaires. AUDIT risk assessment screening completed, risk score(2) with patient denying concerns with use. Completed PHQ-2 risk assessment for depression with risk score(1), negative findings. Patient has been reminded to notify the provider if there would be a change or concerns with symptoms with fear, unable to sleep, worrying too much or feeling down and/or sad with lost of interest with daily activities. Will continue to monitor with screening yearly during Medicare wellness visits. 2. Major depressive disorder, recurrent, moderate (F33.1: Major depressive disorder, recurrent, moderate) Patient taking venlafaxine daily, voices medication is effective. Follows up with PCP with medication management and symptom control. PHQ-9 risk assessment completed with negative findings. Total risk score is 3. Patient denies any suicidal ideations at this time. Reviewed additional signs/symptomsto monitor for and report to provider. 3. Encounter for hepatitis C screening test for low risk patient (Z11.59: Encounter for screening for other viral diseases) Discussed with patient the risk of Hepatitis C for people born between 1945- 1964. Handout CDC-Hepatitis C given. Ordered, patient to have labs drawn for Hepatitis C screening based on year of . Lab requisition printed, patient to take to [facility] per her request to have labs drawn. 4. Essential hypertension (I10: Essential (primary) hypertension) Patient is taking medications daily as directed. Does not monitor BP pressure at home. HTN stoplight reviewed with BP goal to be <140/90. Reviewed different factors that can alter blood pressure readings. Education handout provided with s/s to monitor for and report to provider. Patient is encouraged to increase portions of fruit, vegetables, fiber and increase exercise as much as tolerable. Reviewed importance with monitoring foods high in salt content and encouraged to limit intake, if unsure encouraged to discuss with their PCP. Encouraged to eat more chicken, fish and lean white meats and limits red meats in diet. Discussed importance with keeping BP under good control to reduce CVA risk factors. Will continue to f/u with PCP during office visits and as needed. 5. Hype (more content not included)...[facility]:Result Comment: Electronically Signed By: Yaneth Diaz\.bhavna\Date and Time Signed: 06/22/25 17:59 EDT\.br\Electronically Co-Signed By: Virginia Guerrier.bhavna\Date and Time Co-Signed: 06/22/25 16:09 EDTFamily Medicine Office/Clinic NoteFamily Medicine Office/Clinic Note HPI Staff Emily is a 64 year old female presenting with Former [place] patient* Health Maintenance: Colonoscopy: Dexa: a couple years ago Mammo: 08/24/24 Pap: November 08 2024 Last Labs: CC last fall PT referral placed for lower back pain- April was her last visit this is feeling better needs refill on Xanax, semaglutide and Dosokap no questions/ concern History of Present Illness pt presents today for 6 month follow up. Review of Systems PHQ Score Initial Depression Screen Score: 1 SCORE Physical Exam Vitals & Measurements T: 36.3 ???C(Temporal Artery) HR: 80(Peripheral) RR: 18 BP: 130/84 SpO2: 97% HT: 60 in HT: 153.6 cm WT: 84.5 kg WT: 186.29 lb BMI: 35.82 General: alert, no acute distress ENMT: oral mucosa moist, no pharyngeal erythema or exudate Cardiovascular: regular rate and rhythm, normal peripheral perfusion Respiratory: Lungs CTA, respirations non labored Extremities: no deformity, no trauma Neurological: oriented x 4, LOC appropriate for age, CN II-XII intact, motor strength equal & normal bilaterally, speech normal Assessment/Plan 1. Essential hypertension (I10: Essential (primary) hypertension) BP at goal to day. will send refills. all questions answered. RTC 6 months Ordered: CBC w/ Auto Diff Comprehensive Metabolic Panel Lipid Panel Thyroid Stimulating Hormone Vitamin B12 Level Vitamin D 25 Hydroxy 2. Hyperlipidemia (E78.5: Hyperlipidemia, unspecified) lipid panel ordered Ordered: CBC w/ Auto Diff Comprehensive Metabolic Panel Lipid Panel Thyroid Stimulating Hormone Vitamin B12 Level Vitamin D 25 Hydroxy 3. Fatigue (R53.83: Other fatigue) will check CBC and TSH in office today Ordered: CBC w/ Auto Diff Comprehensive Metabolic Panel Lipid Panel Thyroid Stimulating Hormone Vitamin B12 Level Vitamin D 25 Hydroxy 4. Vitamin D deficiency (E55.9: Vitamin D deficiency, unspecified) vitamin D lab order provided. pt admits to not taking her meds Ordered: CBC w/ Auto Diff Comprehensive Metabolic Panel Lipid Panel Thyroid Stimulating Hormone Vitamin B12 Level Vitamin D 25 Hydroxy 5. Vitamin B 12 deficiency (E53.8: Deficiency of other specified B group vitamins) B12 lab order provided Ordered: CBC w/ Auto Diff Comprehensive Metabolic Panel Lipid Panel Thyroid Stimulating Hormone Vitamin B12 Level Vitamin D 25 Hydroxy 6. Major depressive disorder, recurrent, moderate (F33.1: Major depressive disorder, recurrent, moderate) pt recently lost her to cancer. she is tearful during visit. she has joined a grief supportgroup. takes her meds as prescribed. does not want to change doses at this time. 7. Non-smoker (Z78.9: Other specified health status) continue not smoking 8. BMI 35.0-35.9,adult (Z68.35: Body mass index [BMI] 35.0-35.9, adult) BMI education 9. Class 2 severe obesity due to excess calories with serious comorbidity and body mass index (BMI)of 35.0 to 35.9 in adult (E66.812: Obesity, class 2) see above Orders: HCV Antibody RFX to Quant PCR Follow-up No qualifying data available Problem List/Past Medical History Ongoing Anxiety Bariatric surgery status Calculus of ureter Coronary artery disease Essential hypertension Excessive dietary caloric intake Excessive postexertional fatigue Fatigue Gastro-esophageal reflux disease without esophagitis History of ductal carcinoma in situ of breast Hyperlipidemia Low back pain Major depressive disorder, recurrent, moderate Major depressive disorder, single episode, unspecified Morbid (severe) obesity due to excess calories Obstructive sleep apnea Vitamin B 12 deficiency Vitamin D deficiency Historical No qualifying data Procedure/Surgical History Cardiac catheterization (07/25/2022), Colonoscopy (2019), Breast reduction (2017), Face lift (2017), Breast surgery (2015), Gastric bypass (2014), Hysterectomy (2014), Lumpectomy of left breast (2012), Tonsillectomy (1970). Medications alendronate 35 mg Tab, See Instructions amLODIPine 5 mg Tab, See Instructions, 1 refills aspirin 81 mg oral capsule, 81 mg= 1 cap(s), Oral, MonTueSat atorvastatin 40 mg Tab, See Instructions, 4 refills Co-Q10, 1 tab, Oral, TID Diflucan 150 mg Tab, 150 mg= 1 tab(s), Oral, Once, 1 refills Dosokap oral tablet, 1 tab(s), Oral, Daily lisinopril 20 mg Tab, 20 mg, Oral, Daily, 3 refills Lopressor 25 mg oral tablet, See Instructions, 4 refills magnesium gluconate 250 mg oral tablet, 250 mg= 1 tab(s), Oral, Daily methylcobalamin 1 mg oral tablet, disintegrating, 1 tab(s), Oral, MonWedThu Multi Vitamin+, 1 tab, Oral, Daily naproxen 250 mg tab, 2 tab(s), Oral, q12hr nystatin Top 100,000 units/g Pwdr, 1 richard, Topical, TID omeprazole 40 mg Cap-DR, See Instructions ondansetron 4 mg Dis Tab, See Instructions orphenadrine 100 mg ER Tab, 100 mg= 1 tab(s), Oral, BID Prevagen Extra Strength, 50 mcg (more content not included)...[facility] HospitalComment on above:Result Comment: Electronically Signed By: Yaneth Diaz\.br\Date and Time Signed: 06/22/25 13:08 EDTPre-Visit Planningon [id number]-Visit PlanningPre-Visit Planning From: Elizabeth Acosta To: Yaneth Diaz; Sent: 06/21/2025 11:37:51 EDT Subject: Pre-Visit Planning Due Date/Time: 06/21/2025 11:37:00 EDT Caller Name: CLARIBEL HAQUE; Caller Number: , Nasim Wolfe. During a pre-visit planning chart review, I noted the following documentation in the medical record: Current Problem List: Major depressive disorder, single episode, unspecified. Current Medication List: venlafaxine. PHQ-9 Score: =3 on 01/27/2023. Based on your medical judgment, can you please clarify which, if any, of the following conditions are present? Select all that apply: Major Depressive Disorder, Single Episode ??? Major depressive disorder, single episode, mild ??? Major depressive disorder, single episode, moderate ??? Major depressive disorder, single episode, severe without mention of psychotic behavior ??? Major depressive disorder, single episode, severe specified as with psychotic behavior ??? Major depressive disorder, single episode, in partial remission ??? Major depressive disorder, single episode in full remission Other (Please Specify): In responding to this request, please exercise your independent professional judgement. The fact that a question is asked does not imply that any particular answer is desired or expected. If you have any questions, please feel free to contact me at extension [phone]. Thank you! Elizabeth Acosta LPN Clinical Screen Print Operator [place] [address] Extension: [phone] [email or web address] From: Yaneth Diaz To: Elizabeth Acosta; Sent: 06/22/2025 13:04:28 EDT Subject: RE: Pre-Visit Planning Caller Name: CLARIBEL HAQUE; Caller Number: , major moderate depressive disorder recurrentNormalNovant Health New [facility]opedic Hospitaler [facility] Family Medicine Office/Clinic Noteon [id number] Medicine Office/Clinic NoteFapratt clinic / [facility] Medicine Office/Clinic Note Chief Complaint Concerns regarding anxiety and hypertension management HPI Staff Claribel is a 64 year old female presenting for acute visit Pain characteristics: Back pain Pain location: back Characteristics; Onset: started a long time ago Medication used: Aleve did not help She is wanting PT for this Worse time is in the morning Xanax refilled History of Present Illness - The patient is a 64-year-old female presenting with anxiety and essential hypertension. - Anxiety is managed with medication. - Bereavement was reported. - Patient engages in physical therapy at [facility]. - Social interactions aid in anxiety management. Review of Systems PHQ Score Initial Depression Screen Score: 0 SCORE Physical Exam Vitals & Measurements T: 36.2 ???C(Oral) HR: 62(Peripheral) RR: 20 BP: 130/80 SpO2: 99% HT: 60 in HT: 153.6 cm WT: 192.022 lb WT: 87.1 kg BMI: 36.92 General: alert, no acute distress ENMT: oral mucosa moist Cardiovascular: Regular rate and rhythm, normal peripheral perfusion Respiratory: Lungs clear to auscultation, respirations non labored Extremities: no deformity, no trauma Neurological: oriented x 4, level of consciousness appropriate for age, CN II- XII intact, motor strength equal & normal bilaterally, speech normal Abdomen: Soft, Non-tender, Non-distended, + Bowel sounds Assessment/Plan 1. Excessive postexertional fatigue (R53.83: Other fatigue) - PT referral placed Ordered: Body Mass Index (BMI) documented 3008F Current tobacco non-user 1036F Depression Screening Negative 3352F Influenza immunization status assessed 1030F Medication list documented in medical record 1159F Most recent diastolic blood pressure 80-89 mm Hg 3079F Patient screen for fall risk: no falls in last year or 1 fall with no injury in last year 1101F Physical Therapy Evaluation - External Facility Review of all meds by a prescribing practitioner or clinical pharmacist documented in EHR 1160F Systolic BP 130-139 mm Hg (Most Recent) 3075F 2. Gastro-esophageal reflux disease without esophagitis (K21.9: Gastro- esophageal reflux disease without esophagitis) - Well controlled Ordered: Body Mass Index (BMI) documented 3008F Current tobacco non-user 1036F Depression Screening Negative 3352F Influenza immunization status assessed 1030F Medication list documented in medical record 1159F Most recent diastolic blood pressure 80-89 mm Hg 3079F Patient screen for fall risk: no falls in last year or 1 fall with no injury in last year 1101F Physical Therapy Evaluation - External Facility Review of all meds by a prescribing practitioner or clinical pharmacist documented in EHR 1160F Systolic BP 130-139 mm Hg (Most Recent) 3075F 3. Low back pain (M54.50: Low back pain, unspecified) - PT/ Muscle relaxers Ordered: Body Mass Index (BMI) documented 3008F Current tobacco non-user 1036F Depression Screening Negative 3352F Influenza immunization status assessed 1030F Medication list documented in medical record 1159F Most recent diastolic blood pressure 80-89 mm Hg 3079F Patient screen for fall risk: no falls in last year or 1 fall with no injury in last year 1101F Physical Therapy Evaluation - External Facility Review of all meds by a prescribing practitioner or clinical pharmacist documented in EHR 1160F Systolic BP 130-139 mm Hg (Most Recent) 3075F 4. Bereavement (Z63.4: Disappearance and of family member) - Doing ok. - Has support at home Ordered: Body Mass Index (BMI) documented 3008F Current tobacco non-user 1036F Depression Screening Negative 3352F Influenza immunization status assessed 1030F Medication list documented in medical record 1159F Most recent diastolic blood pressure 80-89 mm Hg 3079F Patient screen for fall risk: no falls in last year or 1 fall with no injury in last year 1101F Physical Therapy Evaluation - External Facility Review of all meds by a prescribing practitioner or clinical pharmacist documented in EHR 1160F Systolic BP 130-139 mm Hg (Most Recent) 3075F 5. Essential hypertension (I10: Essential (primary) hypertension) - Acknowledged; no plan discussed. Ordered: Body Mass Index (BMI) documented 3008F Current tobacco non-user 1036F Depression Screening Negative 3352F Influenza immunization status assessed 1030F Medication list documented in medical record 1159F Most recent diastolic blood pressure 80-89 mm Hg 3079F Patient screen for fall risk: no falls in last year or 1 fall with no injury in last year 1101F Physical Therapy Evaluation - External Facility Review of all meds by a prescribing practitioner or clinical pharmacist documented in EHR 1160F Systolic BP 130-139 mm Hg (Most Recent) 3075F 6. Anxiety (F41.9: Anxiety disorder, unspecified) - Continue medication. - Adjust treatment as needed. - Encourage social support. Ordered: Body Mass Index (BMI) documente (more content not included)...[facility] HospitalComment on above:Result Comment: Electronically Signed By: Jose R ALEJANDRA, Keshia Turk\Date and Time Signed: 03/22/25 12:42 EDTPAP [id number] report Cyto stain Doc (Cvx/Vag)NoteInvalid Interpretation [facility] CenterComment on above:Result Comment: TESTS RESULT FLAG UNITS REF RANGE LAB Clinician Provided Cytology Information Source.............Vagina No. of containers..01 ThinPrep Vial DIAGNOSIS: 01 NEGATIVE FOR INTRAEPITHELIAL LESION OR MALIGNANCY. CELLULAR CHANGES ASSOCIATED WITH ATROPHY ARE PRESENT. THIS SPECIMEN WAS RESCREENED PART OF OUR EXECUTIVE ADMINISTRATIVE ASSISTANT PROGRAM. Specimen adequacy: 01 Satisfactory for evaluation. Endocervical component may not be distinguished in cases of atrophy. Performed by: Zak Person, Corridor Redevelopment Manager ([facility]) QC reviewed by: Elizabeth Jeter, Supervisory Corridor Redevelopment Manager ([facility]) . 01 Note: Note 01 The Pap smear is a screening test designed to aid in the detection of premalignant and malignant conditions of the uterine cervix. It is not a diagnostic procedure and should not be used as the sole means of detecting cervical cancer. Both false-positive and false-negative reports do occur. Test Methodology: Note 01 This liquid based ThinPrep(R) pap test was screened with the use of an image guided system. HPV Genotype Reflex Note 01 Criteria not met, HPV Genotype not performed. FLAG LEGEND: L-Low Normal,H-High Normal,LL-Alert Low,HH-Alert High <-Panic Low,>-Panic High,A-Abnormal,AA-Critical Abnormal Performed at: [address] [id number] Eloina Mederos MD, Suwikjnrb By: #### [id number] #### [place] [facility] [address], [place] [address]ELL 16+18+31+33+35+39+45+51+52+56+58+59+66+68 DNA Probe+sig amp Ql (Cvx)NegativeInvalid Interpretation CodeNegativeFisher [facility] Comment on above:Result Comment: This nucleic acid amplification test detects fourteen high-risk HPV types (16,18,31,33,35,39,45,51,52,56,58,59,66,68) without differentiation. Performed at: [facility] [address] [facility] [address] [place], [place] [id number] MD Gatito Duvall Performed at: =G [facility] [address] [place]SA[place], [place] [id number] MD Gatito DuvallPerformed By: #### [id number] #### [place] [facility] [address], [place] [address]Mibwsrlqya Visit Summaryon [id number] Visit Summary Ambulatory Visit Summary CLARIBEL HAQUE :1960 Visit Date:11/08/2024 Ambulatory Visit Instructions Your Diagnosis Well woman exam Cervical cancer screening Adult BMI 37.0-37.9 kg/sq m Non-smoker Excessive dietary caloric intake Your Care Team Attending Physician - Yaneth Diaz Primary Care Physician - Keshia Taylor MD This Is Your Medications List alendronate (alendronate 35 mg oral tablet) alprazolam (Xanax 0.25 mg Tab) amlodipine (amLODIPine 5 mg Tab) aspirin (aspirin 81 mg oral capsule) atorvastatin (atorvastatin 40 mg Tab) benzonatate (Tessalon 100 mg Cap) cholecalciferol (Prevagen Extra Strength) lisinopril (lisinopril 20 mg Tab) magnesium gluconate (magnesium gluconate 250 mg oral tablet) methylcobalamin (methylcobalamin 1 mg oral tablet, disintegrating) metoprolol (Lopressor 25 mg oral tablet) multivitamin (Multi Vitamin+) multivitamin (Vitamin B Complex oral capsule) naproxen (naproxen 250 mg tab) orphenadrine (orphenadrine 100 mg ER Tab) ubiquinone (Co-Q10) venlafaxine (venlafaxine 75 mg Cap-ER) Procedures Performed Cardiac catheterization (07/25/2022), Colonoscopy (2019), Breast reduction (2017), Face lift (2017), Breast surgery (2016), Gastric bypass (2014), Hysterectomy (2014), Lumpectomy of left breast (2012), Tonsillectomy (1970). Discharge Vitals Heart Rate (Peripheral) 88 Respiratory Rate 18 Blood Pressure 132/84 Height 153.6 cm Height 60 in Weight 87.55 kg Weight 193.014 lb BMI 37.11 Medications What How Much When Instructions Unchanged alendronate (alendronate 35 mg oral tablet) 1 Tablets By Mouth Every week Unchanged alprazolam (Xanax 0.25 mg Tab) 1 Tablets By Mouth 3 times a day as needed for as needed for anxiety Unchanged amlodipine (amLODIPine 5 mg Tab) See instructions Take 1 tablet by mouth once daily Unchanged aspirin (aspirin 81 mg oral capsule) 1 Capsules By Mouth Friday & Friday Unchanged atorvastatin (atorvastatin 40 mg Tab) See instructions Take 1 tablet by mouth once daily Unchanged benzonatate (Tessalon 100 mg Cap) 1 Capsules By Mouth 3 times a day Unchanged cholecalciferol (Prevagen Extra Strength) 50 Microgram By Mouth Every day Unchanged lisinopril (lisinopril 20 mg Tab) 20 Milligram By Mouth Every day Unchanged magnesium gluconate (magnesium gluconate 250 mg oral tablet) 1 Tablets By Mouth Every day Unchanged methylcobalamin (methylcobalamin 1 mg oral tablet, disintegrating) 1 Tablets By Mouth Friday & Unchanged metoprolol (Lopressor 25 mg oral tablet) See instructions Take 1 tablet by mouth twice daily Unchanged multivitamin (Multi Vitamin+) 1 tab By Mouth Every day Unchanged multivitamin (Vitamin B Complex oral capsule) Unchanged naproxen (naproxen 250 mg tab) 2 Tablets By Mouth Every 12 hours Unchanged orphenadrine (orphenadrine 100 mg ER Tab) 1 Tablets By Mouth 2 times a day Unchanged ubiquinone (Co-Q10) 1 tab By Mouth 3 times a day Unchanged venlafaxine (venlafaxine 75 mg Cap-ER) See instructions Take 1 capsule by mouth once daily Allergies sulfa drugs (Itch, Rash) Ragweed Problems Ongoing - Any problem that you are currently receiving treatment for. Bariatric surgery status Calculus of ureter Essential hypertension Excessive dietary caloric intake Excessive postexertional fatigue Gastro-esophageal reflux disease without esophagitis History of ductal carcinoma in situ of breast Major depressive disorder, single episode, unspecified Well woman exam Patient Survey You may receive a survey via text or e-mail asking about your office visit. Please share your experience with us by completing your survey. We appreciate your feedback and thank you for choosing us for your care. [facility] Medicine Office/Clinic Noteon [id number] Medicine Office/Clinic NoteFapratt clinic / [facility] Medicine Office/Clinic Note HPI Staff Emily is a 63 year old female presenting for well woman Pt of Dr Taylor Woman check up: Last pap: 4-5 years ago Last Deandra: normal Results of lap pap: normal Where was it done: hx: # of pregnancies.2.. abortions... live births..2. living children menstrual cycle (normal,heavy,ect): n/a History of STD: no Do you want tested for STD today: no Vaginal discharge, odor, itching: Self breast exam at home? yes Hx of breast, cervical or uterine cancer in the family: mom had breast cancer Pt needs refill on Orphenadrine 100mg ER, low back pain always worse in moring then as up and moving around gets better History of Present Illness pt presents today for well woman exam Review of Systems PHQ Score Initial Depression Screen Score: 0 SCORE Physical Exam Vitals & Measurements HR: 88(Peripheral) RR: 18 BP: 132/84 SpO2: 98% HT: 60 in HT: 153.6 cm WT: 87.55 kg WT: 193.014 lb BMI: 37.11 General: Well developed, well nourished, in no acute distress Neck: Neck supple. No masses or palpable cervical nodes. Trachea midline. Thyroid without nodules, masses, tenderness, or enlargement Breast: No mass, nodule, discharge, or erythema bilaterally, and no axillary lymphadenopathy Lungs: Normal respiratory effort and clear to auscultation Cardio: Regular rate and rhythm, normal S1 and S2, no murmur, no rub Abdomen: Soft, non-distended, non-tender, normal bowel sounds x4 Gyno: normal external genitalia. Urethra no discharge. Vaginal cuff erythematous, no vaginal discharge. Hysterectomy Neurologic: Grossly normal Skin: Tiro, moist, no tenting Lymph Nodes: No cervical adenopathy, nodes normal Mental Status: Alert and oriented x3. Normal mood and affect Assessment/Plan 1. Well woman exam (Z01.419: Encounter for gynecological examination (general) (routine) without abnormal findings) pt presents today for well woman visit. BSE discussed. mammogram was WNL. pap obtained. vaginal cuff very inflamed will treat with diflucan. Ordered: fluconazole, 150 mg = 1 tab(s), Oral, Once, take 1 tab on day one and 1 tabon day four, # 2 tab(s),Refills(s) 1, [facility], 153.6, cm, 11/08/24 11:33:00 EST, Height/Length Dosing, 87.5, kg, 11/08/24 11:33:00 EST, Weight Dosing Est Preventative 65+ years [address] 2. Cervical cancer screening (Z12.4: Encounter for screening for malignant neoplasm of cervix) pap obtained. vaginal cuff is red and irritated. will send in difulcan Ordered: fluconazole, 150 mg = 1 tab(s), Oral, Once, take 1 tab on day one and 1 tabon day four, # 2 tab(s),Refills(s) 1, Pharmacy: [facility], 153.6, cm, 11/08/24 11:33:00 EST, Height/Length Dosing, 87.5, kg, 11/08/24 11:33:00 EST, Weight Dosing Est Preventative 65+ years [address] PAP w/ HPV and Genotype rflx 3. Low back pain (M54.50: Low back pain, unspecified) pt c/o worsening low back pain. worst in the morning. will order x ray. depending on results may order PT. Ordered: Est Preventative 65+ years [address] 4. Excessive dietary caloric intake (R63.2: Polyphagia) wants to restart Ozempic through [facility]. Ordered: fluconazole, 150 mg = 1 tab(s), Oral, Once, take 1 tab on day one and 1 tabon day four, # 2 tab(s),Refills(s) 1, [facility], 153.6, cm, 11/08/24 11:33:00 EST, Height/Length Dosing, 87.5, kg, 11/08/24 11:33:00 EST, Weight Dosing Est Preventative 65+ years [address] 5. Adult BMI 37.0-37.9 kg/sq m (Z68.37: Body mass index [BMI] 37.0-37.9, adult) BMI education given Ordered: fluconazole, 150 mg = 1 tab(s), Oral, Once, take 1 tab on day one and 1 tabon day four, # 2 tab(s),Refills(s) 1, Pharmacy: [facility], 153.6, cm, 11/08/24 11:33:00 EST, Height/Length Dosing, 87.5, kg, 11/08/24 11:33:00 EST, Weight Dosing Est Preventative 65+ years [address] PAP w/ HPV and Genotype rflx 6. Non-smoker (Z78.9: Other specified health status) continue not smoking Ordered: fluconazole, 150 mg = 1 tab(s), Oral, Once, take 1 tab on day one and 1 tabon day four, # 2 tab(s),Refills(s) 1, Pharmacy: [facility], 153.6, cm, 11/08/24 11:33:00 EST, Height/Length Dosing, 87.5, kg, 11/08/24 11:33:00 EST, Weight Dosing Est Preventative 65+ years [address] PAP w/ HPV and Genotype rflx Orders: orphenadrine, 100 mg = 1 tab(s), Oral, BID, # 60 tab(s), Refills(s) 0, Pharmacy: [facility], 153.6, cm, 11/08/24 11:33:00 EST, Height/Length Dosing, 87.5, kg, 11/08/24 11:33:00 EST, WeightDosing orphenadrine, 100 mg = 1 tab(s), Oral, BID, # 60 tab(s), Refills(s) 0, Pharmacy: [facility], 156, cm, 01/27/23 14:37:00 EDT, Height/Length Dosing, 71.9, kg, 01/27/23 14:37:00 EDT, Weight Dosing Follow-up No qualifying data available Problem List/Past Medical History Ongoing Bariatric surgery status Calculus of ureter Essential hypertension Excessive dietary caloric intake Excessive postexertional fa (more content not included)...[facility] HospitalComment on above:Result Comment: Electronically Signed By: Yaneth Diaz.bhavna\Date and Time Signed: 11/08/24 12:16 ESTPAP [id number] 11-08-2024 PAP [id number] account.Invalid Interpretation [facility] Comment on above:Result Comment: testing ordered on wrong account, office fixed ordered on correct lab drop off account. [id number] 11/08/2024 14:01:30 ESTPerformed By: #### [id number] #### [facility] [address], [place] [address]Csqykdlnzyvth Body [facility] Comment on above:Performed By: #### [id number] #### [facility] [address], [place] [address]Blesztmmyyqxy Body [facility] Comment on above:Performed By: #### [id number] #### [facility] [address], [place] [address]Ypvdwjwit Laboratory TestingOrdered By: Mare Woo on [id number] [id number] account.Invalid Interpretation [facility] SendOutsSS Comment on above:Result Comment: testing ordered on wrong account, office fixed ordered on correct lab drop off account. [id number] 11/08/2024 14:01:30 ESTCBC W Auto Differential panel (Bld)on [id number] (Bld) [#/Vol]0.08 10*3/uLNINF [facility] HospitalBasophils/100 WBC (Bld)0.9 %[facility] HospitalDifferential cell count method Nom (Bld)AutoCleveland ClinicEosinophils (Bld) [#/Vol]0.15 10*3/uL NINFCleveland ClinicEosinophils/100 WBC (Bld)1.7 %[facility] HospitalErythrocyte distribution width (RBC) [Ratio]13.2 %11.5 - 15.0 %[facility] HospitalHematocrit (Bld) [Volume fraction]41.4 %36.0 - 46.0 %[facility] HospitalHemoglobin (Bld) [Mass/Vol]13.5 g/dL11.5 - 15.5 g/dLDunlap Memorial HospitalImmature granulocytes (Bld) [#/Vol]0.03 10*3/uLNINFDunlap Memorial HospitalImmature granulocytes/100 WBC (Bld)0.3 % [facility] HospitalInterpretation and review of laboratory resultsAbnormalClevelSelect Medical OhioHealth Rehabilitation Hospital - DublinLymphocytes (Bld) [#/Vol]1.97 10*3/uLDunlap Memorial HospitalLymphocytes/100 WBC (Bld)21.8 %[facility] CenterH (RBC) [Entitic mass]29.3 pg26.0 - 34.0 pg [facility] CenterHC (RBC) [Mass/Vol]32.6 g/dL30.5 - 36.0 g/dLDunlap Memorial Hospital MCV (RBC) [Entitic vol]90.0 fL80.0 - 100.0 fLClevelunc health wayne ClinicMonocytes (Bld) [#/Vol]0.53 10*3/uLNINFDunlap Memorial HospitalMonocytes/100 WBC (Bld)5.9 %[facility] HospitalNeutrophils (Bld) [#/Vol]6.29 10*3/uLDunlap Memorial HospitalNeutrophils/100 WBC (Bld)69.4 %[facility] Memorial HospitalNucleated RBC (Bld) [#/Vol]NINFCSt. Mary's Medical Center, Iront[facility] Campus Nucleated RBC/100 WBC (Bld) [Ratio]0.0 %/100 WBCDunlap Memorial HospitalPlatelet mean volume (Bld) [Entitic vol]9.2 fL9.0 - 12.7 fLCnationwide children's hospital ClinicPlatelets (Bld) [#/Vol]405 10*3/uLHighDunlap Memorial HospitalRBC (Bld) [#/Vol]4.60 10*6/uL3.90 - 5.20 m/uLDunlap Memorial HospitalWBC (Bld) [#/Vol]9.05 10*3/uLOhioHealth Grove City Methodist Hospital ClinicBasophils (Bld) [#/Vol]0.08 10*3/uLNormal<0.11CProMedica Memorial Hospital Comment on above:Order Comment: Specimen Type: BLOOD SPECIMEN [facility] Facility[facility] Address: [address] [place], [place] [address]Sqfjrbumb By: #### 82523-8 #### [facility] CLIA [id number] [address] [place] [address] 56416Jzclfmkoj/100 WBC (Bld)0.9 %NormalUniversity Hospitals Health System Comment on above:Order Comment: Specimen Type: BLOOD SPECIMEN [facility] Facility[facility] Address: [address] [place], [place] [address]Performed By: #### 94801-8 #### [facility] CLIA [id number] [address] [place] [address] 99525Zscbpdforhtc cell count method Nom (Bld)AutoNormalClevelMission Hospital McDowellComment on above:Order Comment: Specimen Type: BLOOD SPECIMEN [facility] Facility[facility] Address: [address] [place], [place] [address]Performed By: #### 24660-4 #### [facility] CLIA [id number] [address] [place] [address] 96484Csunnaiokkt (Bld) [#/Vol]0.15 10*3/uLNormal<0.46[facility] on above:Order Comment: Specimen Type: BLOOD SPECIMEN [facility] Facility[facility] Address: [address] [place], [place] [address]Performed By: #### 23826-6 #### [facility] CLIA [id number] [address] [place] [address] 94971Ottdxlctdcp/100 WBC (Bld)1.7 %NormalUniversity Hospitals Health System Comment on above:Order Comment: Specimen Type: BLOOD SPECIMEN [facility] Address: [address] [place], [place] [address]Performed By: #### 42098-5 #### [facility] CLIA [id number] [address] [place] [address] 19689Iglveounesa distribution width (RBC) [Ratio]13.2 %Normal 11.5-15.0[facility] on above:Order Comment: Specimen Type: BLOOD SPECIMEN [facility] Address: [address] [place], [place] [address]Performed By: #### 92104-6 #### [facility] CLIA [id number] [address] [place] [address] 92138Nqpohngraw (Bld) [Volume fraction]41.4 %Rhjibb13.0-46.0 [facility] on above:Order Comment: Specimen Type: BLOOD SPECIMEN [facility] Address: [address] [place], [place] [address]Performed By: #### 05764-1 #### [facility] CLIA [id number] [address] [place] [address] 27405Cxxrtemsaf (Bld) [Mass/Vol]13.5 g/sMBuiiyi62.5-15.5CTrinity Health System on above:Order Comment: Specimen Type: BLOOD SPECIMEN [facility] Address: [address] [place], [place] [address]Performed By: #### 16023-5 #### [facility] CLIA [id number] [address] [place] [address] 53584Vxasbggn granulocytes (Bld) [#/Vol]0.03 10*3/uLNormal<0.10 [facility] on above:Order Comment: Specimen Type: BLOOD SPECIMEN [facility] Address: [address] [place], [place] [address]Performed By: #### 40254-3 #### [facility] CLIA [id number] [address] [place] [address] 06538Zdlmdwhz granulocytes/100 WBC (Bld)0.3 %NormalCincinnati Children's Hospital Medical Center on above:Order Comment: Specimen Type: BLOOD SPECIMEN [facility] Address: [address] [place], [place] [address]Performed By: #### 92433-0 #### [facility] CLIA [id number] [address] [place] [address] 77828Emcupqjogsb (Bld) [#/Vol]1.97 10*3/uLNormal1.00-4.00[facility] on above:Order Comment: Specimen Type: BLOOD SPECIMEN [facility] Address: [address] [place], [place] [address]Performed By: #### 87602-7 #### [facility] CLIA [id number] [address] [place], [place] [address]Kwmzaqgciyu/100 WBC (Bld)21.8 %NormalCincinnati Children's Hospital Medical Center on above:Order Comment: Specimen Type: BLOOD SPECIMEN [facility] Address: [address] [place], [place] [address]Performed By: #### 24579-8 #### [facility] CLIA [id number] [address] [place] [address] 30547GUD (RBC) [Entitic mass]29.3 yeNlndtv95.0-34.0[facility] on above:Order Comment: Specimen Type: BLOOD SPECIMEN [facility] Address: [address] [place], [place] [address]Performed By: #### 16201-2 #### [facility] CLIA [id number] [address] [place] [address] 70163LTSQ (RBC) [Mass/Vol]32.6 g/qVCrwslj94.5-36.0[facility] on above:Order Comment: Specimen Type: BLOOD SPECIMEN [facility] Address: [address] [place], [place] [address]Performed By: #### 56241-9 #### [facility] CLIA [id number] [address] [place] [address] 36080MJK (RBC) [Entitic vol]90.0 aQUlpvku50.0-100.0[facility] on above:Order Comment: Specimen Type: BLOOD SPECIMEN [facility] Address: [address] [place], [place] [address]Performed By: #### 39900-7 #### [facility] CLIA [id number] [address] [place] [address] 07929Lvuewwhhn (Bld) [#/Vol]0.53 10*3/uLNormal<0.87[facility] on above:Order Comment: Specimen Type: BLOOD SPECIMEN [facility] Address: [address] [place], [place] [address]Performed By: #### 54688-5 #### [facility] CLIA [id number] [address] [place] [address] 01783Dvfhjuiga/100 WBC (Bld)5.9 %NormalUniversity Hospitals Health System Comment on above:Order Comment: Specimen Type: BLOOD SPECIMEN [facility] Address: [address] [place], [place] [address]Performed By: #### 24045-5 #### [facility] CLIA [id number] [address] [place] [address] 72474Jbddikuxivi (Bld) [#/Vol]6.29 10*3/uLNormal1.45-7.50[facility] on above:Order Comment: Specimen Type: BLOOD SPECIMEN [facility] Address: [address] [place], [place] [address]Performed By: #### 16608-0 #### [facility] CLIA [id number] [address] [place] [address] 12639Pwuudyktugh/100 WBC (Bld)69.4 %NormalCincinnati Children's Hospital Medical Center on above:Order Comment: Specimen Type: BLOOD SPECIMEN [facility] Address: [address] [place], [place] [address]Performed By: #### 15044-8 #### [facility] CLIA [id number] [address] [place] [address] 67941Xelptxgwt RBC (Bld) [#/Vol]10*3/uLNormal<0.01[facility] on above:Order Comment: Specimen Type: BLOOD SPECIMEN [facility] Address: [address] [place], [place] [address]Performed By: #### 79048-2 #### [facility] CLIA [id number] [address] [place], [place] [address]Uzmvditgr RBC/100 WBC (Bld) [Ratio]0.0 /100 WBCNormalCTrinity Health System on above:Order Comment: Specimen Type: BLOOD SPECIMEN [facility] Address: [address] [place], [place] [address]Performed By: #### 70169-8 #### [facility] CLIA [id number] [address] [place], [place] [address]Xkmzvkni mean volume (Bld) [Entitic vol]9.2 fLNormal9.0-12.7 [facility] on above:Order Comment: Specimen Type: BLOOD SPECIMEN [facility] Address: [address] [place], [place] [address]Performed By: #### 79767-8 #### [facility] CLIA [id number] [address] [place] [address] 68052Dxukazxve (Bld) [#/Vol]405 10*3/yIPaya145-647BvyraqwmzCincinnati Children's Hospital Medical Center on above:Order Comment: Specimen Type: BLOOD SPECIMEN [facility] Address: [address] [place], [place] [address]Performed By: #### 43423-2 #### [facility]ADJESS[facility] CLIA [id number] [address] [place] [address] 76923HCY (Bld) [#/Vol]4.60 10*6/uLNormal3.90-5.20[facility] on above:Order Comment: Specimen Type: BLOOD SPECIMEN [facility] Address: [address] [place], [place] [address]Performed By: #### 54396-9 #### [facility] CLIA [id number] [address] [place] [address] 63792ALA (Bld) [#/Vol]9.05 10*3/uLNormal3.70-11.00[facility] on above:Order Comment: Specimen Type: BLOOD SPECIMEN [facility] Address: [address], [place], [place] [address]Pisgxcxxb By: #### 93308-0 #### [facility] CLIA [id number] [address] [place] [address] 98702NXUNHRdm 35-36-2699IHOBDXCbnym (SP) Office ([place]) DIDITato PLUNKETT ([id number]) 1960 F Date Time Provider Department 09/14/24 2:00 PM JASON BUCHANAN During your visit today, we recorded the [...] left breast HISTORY OF PRESENT ILLNESS: Tiffany Haque is a 62 year old woman who [...] no skin changes or mass Physical Examination: [facility] 02/08/2013 General: Alert and oriented, no distress, [...] surgery disease and palpabl (more content not included)...NormalUniversity Hospitals Health SystemComprehensive metabolic 2000 panel Ordered By: Jesus Montoya on 21-54-6458Lchunef [Mass/Vol]4.2 g/dL3.9 - 4.9 g/dL [facility]ALP [Catalytic activity/Vol]57 U/L34 - 123 U/LCSt. Mary's [facility] ALT [Catalytic activity/Vol]41 U/LHigh7 - 38 U/LCleveland ClinicAnion gap [Moles/Vol]10 mmol/L8 - 15 mmol/LCleveland ClinicAST [Catalytic activity/Vol]36 U/LHigh13 - 35 U/LCleveland [facility] And ClinicBilirubin [Mass/Vol]0.4 mg/dL0.2 - 1.3 mg/dL [facility] Memorial HospitalCalcium [Mass/Vol]9.8 mg/dL8.5 - 10.2 mg/dLDunlap Memorial Hospital Chloride [Moles/Vol]107 mmol/L98 - 107 mmol/LCleveland ClinicCO2 [Moles/Vol]24 mmol/L22 - 30 mmol/LCleveland ClinicCreatinine [Mass/Vol]0.71 mg/dL0.58 - 0.96 mg/dLDunlap Memorial HospitalGFR/1.73 sq M.predicted among non-blacks MDRD (S/P/Bld) [Vol rate/Area]94 mL/min/{1.73_m2}- PINFCSt. Mary's Medical Center, Ironton CampusComment on above: Estimated Glomerular Filtration Rate (eGFR) is calculated using the 2020 CKD-EPI creatinine equation. This equation utilizes serum creatinine, sex, and age as parameters. The creatinine assay has traceable calibration to isotope dilution- mass spectrometry. Refer to KDIGO guidelines for clinical interpretation. In patients with unstable renal function, e.g. those with acute kidney injury, the eGFRmay not accurately reflect actual GFR.Glucose [Mass/Vol]112 mg/qMMdhz14 - 99 mg/dLDunlap Memorial HospitalCommclaren bay special care hospital on above:The [place] Diabetes Association (ADA) provides guidance for cutoff values for fasting glucose andrandom glucose. The ADA defines fasting as no caloric intake for at least 8 hours. Fasting plasma gl ucose results between 100 to 125 mg/dL indicate [...] Standards of Medical Care in Diabetes 2016, [place] Diabetes [employer]. Diabetes Care. 2016.39(Suppl 1). Interpretation and review of laboratory resultsAbnormalCleveland ClinicPotassium [Moles/Vol]4.3 mmol/L3.7 - 5.1 mmol/LCleveland ClinicProtein [Mass/Vol]6.7 g/dL 6.3 - 8.0 g/dLYork ClinicSodium [Moles/Vol]141 mmol/L136 - 144 mmol/L Dunlap Memorial HospitalUrea nitrogen [Mass/Vol]16 mg/dL7 - 21 mg/dLGalion Community HospitalComprehensive metabolic 2000 panelon 68-33-6923Rvfrsok [Mass/Vol]4.2 g/dLNormal3.9-4.9CTrinity Health System on above:Order Comment: Specimen Type: BLOOD SPECIMEN [facility] Address: [address] [place], [place] [address]Performed By: #### 50508-6 #### [facility] CLIA [id number] [address] [place], [place] [address]DII [Catalytic activity/Vol]57 U/LDxeyrn28-331ItevdzocsCincinnati Children's Hospital Medical Center on above:Order Comment: Specimen Type: BLOOD SPECIMEN [facility] Address: [address] [place], [place] [address]Performed By: #### 33399-0 #### [facility] CLIA [id number] [address] [place], [place] [address]DUB [Catalytic activity/Vol]41 U/LHigh7-38[facility] on above:Order Comment: Specimen Type: BLOOD SPECIMEN [facility] Address: [address] [place], [place] [address]Performed By: #### 31530-3 #### [facility] CLIA [id number] [address] [place], [place] [address]Efnum gap [Moles/Vol]10 mmol/LNormal8-15[facility] on above:Order Comment: Specimen Type: BLOOD SPECIMEN [facility] Address: [address] [place], [place] [address]Performed By: #### 04516-2 #### [facility] CLIA [id number] [address] [place], [place] [address]RTK [Catalytic activity/Vol]36 U/WRjfk97-60XmuzdmnklCincinnati Children's Hospital Medical Center on above:Order Comment: Specimen Type: BLOOD SPECIMEN [facility] Address: [address] [place], [place] [address]Performed By: #### 29671-1 #### [facility] CLIA [id number] [address] [place], [place] [address]Jqxdrwuil [Mass/Vol]0.4 mg/dLNormal0.2-1.3[facility] ClevelandComment on above:Order Comment: Specimen Type: BLOOD SPECIMEN [facility] Address: [address] [place], [place] [address]Performed By: #### 70016-7 #### [facility] CLIA [id number] [address] [place], [place] [address]Kgccpoc [Mass/Vol]9.8 mg/dLNormal8.5-10.2CTrinity Health System on above:Order Comment: Specimen Type: BLOOD SPECIMEN [facility] Address: [address] [place], [place] [address]Performed By: #### 99338-2 #### [facility] CLIA [id number] [address] [place], [place] [address]Owwhmvqn [Moles/Vol]107 mmol/EIwnypq61-472KlfonskxiCincinnati Children's Hospital Medical Center on above:Order Comment: Specimen Type: BLOOD SPECIMEN [facility] Address: [address] [place], [place] [address]Performed By: #### 66378-5 #### [facility] CLIA [id number] [address] [place] [address] 04111XF3 [Moles/Vol]24 mmol/GCbxzch93-69PbniulbtdUniversity Hospitals Health System Comment on above:Order Comment: Specimen Type: BLOOD SPECIMEN [facility] Address: [address] [place], [place] [address]Performed By: #### 01052-1 #### [facility] CLIA [id number] [address] [place], [place] [address]Yxldxelcld [Mass/Vol]0.71 mg/dLNormal0.58-0.96[facility] on above:Order Comment: Specimen Type: BLOOD SPECIMEN [facility] Address: [address] [place], [place] [address]Performed By: #### 37569-2 #### [facility] CLIA [id number] [address] [place], [place] [address]Aarggynojr and Glomerular filtration rate.predicted panel (S/P/Bld)94 mL/min/1.73m???Normal>=60[facility] on above: Order Comment: Specimen Type: BLOOD SPECIMEN [facility] Address: [address] [place] [address]Ccikij Comment: Estimated Glomerular Filtration Rate (eGFR) is calculated using the 2020 CKD-EPI cre atinine equation. This equation utilizes serum creatinine, sex, and age as parameters. The creatinine assay has traceable calibration to isotope dilution- mass spectrometry. Refer to KDIGO guidelines for clinical interpretation. In patients with unstable renal function, e.g. those with acute kidney injury, the eGFR may not accurately reflect actual GFR.Performed By: #### 18817-9 #### [facility] CLIA [id number] [address] [place] [address]Kybwufm [Mass/Vol]112 mg/zEVypc82-29YunssxekaUniversity Hospitals Health System Comment on above:Order Comment: Specimen Type: BLOOD SPECIMEN [facility] Address: [address] [place], [place] [address]Result Comment: The [place] Diabetes Association (ADA) provides guidance for cutoff [...] Standards of Medical Care in Diabetes 2016, [place] Diabetes Association. Diabetes Care. 2016.39(Suppl 1).Performed By: #### 15977-3 #### [facility] CLIA [id number] [address] [place], [place] [address]Cbdhkhptj [Moles/Vol]4.3 mmol/LNormal3.7-5.1CTrinity Health System on above:Order Comment: Specimen Type: BLOOD SPECIMEN [facility] Address: [address] [place], [place] [address]Performed By: #### 98881-6 #### [facility] CLIA [id number] [address] [place], [place] [address]Ealdjcz [Mass/Vol]6.7 g/dLNormal6.3-8.0[facility] on above:Order Comment: Specimen Type: BLOOD SPECIMEN [facility] Address: [address] [place], [place] [address]Performed By: #### 41607-0 #### [facility] CLIA [id number] [address] [place] [address]72[address]Uezaut [Moles/Vol]141 mmol/SPmyxcz041-290WcxompixwCincinnati Children's Hospital Medical Center on above:Order Comment: Specimen Type: BLOOD SPECIMEN [facility] Address: [address] [place], [place] [address]Performed By: #### 83507-6 #### [facility] CLIA [id number] [address] [place], [place] [address]Rzvc nitrogen [Mass/Vol]16 mg/dLNormal7-21[facility] on above:Order Comment: Specimen Type: BLOOD SPECIMEN [facility] Address: [address] [place], [place] [address]Performed By: #### 35946-8 #### [facility] CLIA [id number] [address] [place], [place] [address]Wgmhmv - Clinical Noteon 84-40-8751Mpodju - Clinical Note [id number]#1.00TIFSelect Medical Specialty Hospital - YoungstownRetail - Clinical Noteon 88-80-3010Atvpzp - Clinical Note [id number]#1.00TIFSelect Medical Specialty Hospital - YoungstownMRI BREAST WO/W IVCON BILATERALon 45-90-5148Zcgyleqho ClinicPAP ACOG PANEL 2: 30 to 65on 09-06-2022..NormalThe Tuscarawas HospitalComment on above:Result Comment: Performed at: BAPerformed By: #### [id number] #### [facility] [address] [place] [address] Dr. Errol Drew Gdln ACOG Benssvf09-08BefvfmJnyMadison HealthComment on above:Performed By: #### [id number] #### [facility] [address] [place] [address] Dr. Errol ArmendarizDIAGNOSIS:CommentWright-Patterson Medical Center on above: Result Comment: NEGATIVE FOR INTRAEPITHELIAL LESION OR MALIGNANCY. CELLULAR CHANGES ASSOCIATED WITH ATROPHY ARE PRESENT. Performed at: BAPerformed By: #### [id number] #### [facility] [address] [place] [address] Dr. Errol Jimenes AptimaNegativeNormalNegativeSelect Medical Specialty Hospital - Columbus SouthCommclaren bay special care hospital on above:Result Comment: This nucleic acid amplification test detects fourteen high-risk HPV types (16,18,31,33,35,39,45,51,52,56,58,59,66,68) without differentiation. Performed at: =GPerformed By: #### [id number] #### [facility] [address] [place] [address] Dr. Errol Jimenes Genotype ReflexCommentWright-Patterson Medical Center on above:Result Comment: Criteria not met, HPV Genotype not performed. Performed at: BAPerformed By: #### [id number] #### [facility] [address] [place] [address] Dr. Errol ArmendarizMethodology:CommentWright-Patterson Medical Center on above: Result Comment: This liquid based ThinPrep(R) pap test was screened with the use of an image guided system. Performed at: WBPerformed By: #### [id number] #### [facility] [address] [place] [address] Dr. Errol ArmendarizNote:CommentWright-Patterson Medical Center on above:Result Comment: The Pap smear is a screening test designed to aid in the detection of premalignant and malignant conditions of the uterine cervix. It is not a diagnostic procedure and should not be used as the sole means of detecting cervical cancer. Both false-positive and false-negative reports do occur. . Performed at: Performed By: #### [id number] #### [facility] [address] [address] [address] Errol ArmendarizPerformed by:CommentCleveland Clinic FoundationCommclaren bay special care hospital on above: Result Comment: Alise Trotter, Corridor Redevelopment Manager (ASCP) Performed at: [facility] WESTerformed By: #### [id number] #### [facility] [address] [address] [address] Errol ArmendarizSpecimen adequacy:CommentWright-Patterson Medical Center on above:Result Comment: Satisfactory for evaluation. Endocervical component may not be distinguished in cases of atrophy. Performed at: [facility] WESTerformed By: #### [id number] #### [facility] [address] [place] [address] Dr. Errol ArmendarizMG MAMM SCREEN 3D VALENTIN CADon 82-09-6770SK MAMM SCREEN 3D VALENTIN CAD Patient: Tato HAQUE Exam Date: 08/12/2022 : 1960 Gender:F Ordering : CLARITZA GARCIA Admission #: [id number] Family : Order #: [id number] CLICK HERE TO VIEW EXAM RADIOLOGY REPORT PROCEDURE: MAMMOGRAM SCREENING 3D BILATERAL CAD COMPARISON: MG MAMM DIAGNOSTIC 3D VALENTIN CAD, 08/08/2021. MG MAMM VALENTIN DIAG W CAD, 07/17/2020. INDICATIONS: Screening mammography Calculator Name NCI Breast Cancer Risk Assessment Tool 5 Year Breast Cancer Risk n/a% Lifetime Breast Cancer Risk n/a% Personal Breast Cancer Yes, DCIS, cribiform type Personal Ovarian Cancer No Treatments Lumpectomy, radiation,Tamoxifen Family Cancers Mother with breast cancer at age 72; Father with skin cancer at age 65. LOCATION: [facility] BREAST COMPOSITION: Scattered areas fibroglandular density. [...] LUMP SHOULD BE BIOPSIED. Dictated by: Patrica Martin M.D. on 08/12/2022 at 12:41 Approved by: Patrica Martin M.D. on 08/12/2022 at 12:55C[facility] Clinic FoundationCHEMISTRYOrdered By: SYSTEM SYSTEM on 19-00-4883Ecjyw gap [Moles/Vol]7 mmol/LNormal6 - 16 mEq/LFTMC RemisolCalcium [Mass/Vol]8.1 mg/dLLow8.9 - 11.1 mg/dLFTMC RemisolChloride [Moles/Vol]117 mmol/BHidd112 - 111 mmol/LFTMC Remisol CO2 [Moles/Vol]21 mmol/ZZacihu38 - 31 mmol/LFTMC RemisolCreatinine [Mass/Vol]0.6 mg/dLNormal0.5 - 1.3 mg/dLFTMC RemisolGFR/1.73 sq M.predicted among blacks MDRD (S/P/Bld) [Vol rate/Area]mL/min/1.73 v2Xsplcy>=59mL/min/1.73 m2FTMC Chem S GFR/1.73 sq M.predicted among non-blacks MDRD (S/P/Bld) [Vol rate/Area] mL/min/1.73 d5Fhdmmb>=59mL/min/1.73 m2FTMC Chem SGlucose [Mass/Vol]86 mg/dL Weyeqa90 - 199 mg/dLFTMC RemisolPotassium [Moles/Vol]3.8 mmol/LNormal3.5 - 5.3 mmol/LFTMC RemisolSodium [Moles/Vol]141 mmol/BBsdfww289 - 145 mmol/LFTMC Remisol Urea nitrogen [Mass/Vol]8 mg/dLNormal5 - 21 mg/dLFTMC RemisolUrea nitrogen/Creatinine [Mass ratio]13 mg/nlRyeula87 - 20FTMC RemisolCHEMISTRY Ordered By: SYSTEM SYSTEM on 19-61-4117Hnkdgby [Mass/Vol]3.4 g/dLNormal3.3 - 5.0 gm/dLFTMC RemisolAlbumin/Globulin [Mass ratio]1.3 {ratio}Normal1.1 - 2.2FT[facility] RemisolALP [Catalytic activity/Vol]23 [iU]/mCrqvdv97 - 98 Int._Unit/LFTMC RemisolALT No additional P-5'-P [Catalytic activity/Vol]14 [iU]/dNormal6 - 46 Int._Unit/LFTMC RemisolAnion gap [Moles/Vol]12 mmol/LNormal6 - 16 mEq/LFTMC RemisolAST [Catalytic activity/Vol]16 [iU]/dNormal5 - 43 Int._Unit/LFTMC Remisol Bilirubin [Mass/Vol]0.7 mg/dLNormal0.0 - 1.1 mg/dLFTMC RemisolBilirubin.direct [Mass/Vol]0.2 mg/dLNormal0.1 - 0.4 mg/dLFTMC RemisolBilirubin.indirect [Mass or moles/Vol]0.5 mg/dLNormal0.1 - 0.9 mg/dLFTMC RemisolCalcium [Mass/Vol]8.2 mg/dL Low8.9 - 11.1 mg/dLFTMC RemisolChloride [Moles/Vol]113 mmol/RVdzd045 - 111 mmol/LFTMC RemisolCholesterol [Mass/Vol]153 mg/rABnaeln582 - 200 mg/dLFTMC RemisolCholesterol in HDL [Mass/Vol]40 mg/dLInvalid Interpretation CodeFTMC RemisolCholesterol in LDL [Mass/Vol]94 mg/dLNormal<=129mg/dLFTMC Remisol Cholesterol in VLDL [Mass/Vol]17 mg/dLNormal7 - 40 mg/dLFTMC RemisolCO2 [Moles/Vol]19 mmol/LLow21 - 31 mmol/LFTMC RemisolCobalamin (Vitamin B12) [Mass/Vol]807 pg/vLIwnbid47 - 1500 pg/mLFTMC RemisolCreatinine [Mass/Vol]0.8 mg/dLNormal0.5 - 1.3 mg/dLFTMC RemisolGFR/1.73 sq M.predicted among blacks MDRD (S/P/Bld) [Vol rate/Area]mL/min/1.73 p3Ugubtm>=59mL/min/1.73 m2FT Chem S GFR/1.73 sq M.predicted among non-blacks MDRD (S/P/Bld) [Vol rate/Area] mL/min/1.73 j8Ihqust>=59mL/min/1.73 m2[facility] Chem SGlobulin (S) [Mass/Vol]2.7 g/dL Normal1.4 - 4.0 gm/dLFT RemisolGlucose [Mass/Vol]93 mg/sZZlytdj42 - 199 mg/dL FT RemisolLactate [Mass/Vol]0.7 mmol/LNormal0.5 - 2.2 mmol/LFTMC Remisol Protein [Mass/Vol]6.1 g/dLNormal6.0 - 7.8 gm/dLFT RemisolSodium [Moles/Vol]141 mmol/QCnnbmj687 - 145 mmol/LFTMC RemisolTriglyceride [Mass/Vol]86 mg/dLNormal <=149mg/dLFTMC RemisolTSH Qn1.13 m[IU]/LNormal0.34 - 5.60 mcIU/mLFT Remisol Urea nitrogen [Mass/Vol]18 mg/dLNormal5 - 21 mg/dLFTMC RemisolUrea nitrogen/Creatinine [Mass ratio]22 mg/mfJors30 - 20FT[facility] RemisolCHEMISTRYOrdered By: Andrey Velazquez on 35-13-9486UnG8m (Bld) [Mass fraction]5.1 %Normal<=5.9%[facility] ChemAutoSSCHEMISTRYOrdered By: Gracie Kraft on 98-54-9420Awvcoeirt [Moles/Vol] 3.0 mmol/LLow3.5 - 5.3 mmol/LFTMC RemisolHEMATOLOGYOrdered By: SYSTEM SYSTEM on 42-13-0031Fovvsuswv/100 WBC (Bld)1.3 %Normal0.0 - 2.0 %[facility] HemeAutoSS Basophils/Leukocytes Auto (Bld) [Pure # fraction]0.1 E9/LNormal0.0 - 0.2 E9/L [facility] HemeAutoSSEosinophils/100 WBC (Bld)1.7 %Normal0.0 - 8.0 %[facility] HemeAutoSS Eosinophils/Leukocytes Auto (Bld) [Pure # fraction]0.1 E9/LNormal0.0 - 0.5 E9/L [facility] HemeAutoSSLymphocytes/100 WBC (Bld)36.9 %Xlqxkt77.0 - 50.0 %[facility] HemeAutoSS Lymphocytes/Leukocytes Auto (Bld) [Pure # fraction]2.4 E9/LNormal1.0 - 4.0 E9/L [facility] HemeAutoSSMonocytes/100 WBC (Bld)8.6 %Normal4.0 - 14.0 %[facility] HemeAutoSS Monocytes/Leukocytes Auto (Bld) [Pure # fraction]0.6 E9/LNormal0.2 - 1.0 E9/L [facility] HemeAutoSSNeutrophils/100 WBC (Bld)51.5 %Ohfofo12.0 - 75.0 %[facility] HemeAutoSS Neutrophils/Leukocytes Auto (Bld) [Pure # fraction]3.3 E9/LNormal2.0 - 7.5 E9/L [facility] HemeAutoSSHEMATOLOGYOrdered By: Franny Huggins on 17-18-9045Zrxxbzwehsc distribution width (RBC) [Ratio]13.7 %Efqzgo48.9 - 14.2 %[facility] HemeAutoSS Hematocrit (Bld) [Volume fraction]37.7 %Jxjgsd39.0 - 46.0 %[facility] HemeAutoSS Hemoglobin (Bld) [Mass/Vol]12.6 g/hTAdrskx46.0 - 16.0 gm/dLFTMC HemeAutoSSMCH (RBC) [Entitic mass]29.5 hjZkarry07.0 - 34.0 pgFTMC HemeAutoSSMCHC (RBC) [Mass/Vol]33.5 g/jCSbzgvf74.4 - 36.0 gm/dLFTMC HemeAutoSSMCV (RBC) [Entitic vol] 88.1 yXVgpwkh65.0 - 100.0 fLFTMC HemeAutoSSPlatelet mean volume (Bld) [Entitic vol]7.9 fLNormal6.4 - 10.8 fLFTMC HemeAutoSSPlatelets (Bld) [#/Vol]348.0 E9/L Lzmzfp063.0 - 500.0 E9/LFTMC HemeAutoSSRBC (Bld) [#/Vol]4.3 E12/LNormal4.3 - 5.9 E12/LFTMC HemeAutoSSSed Rate Medsstcea89 mm/hNormal0 - 34 mm/hrFTMC HemeAutoSS WBC corrected for nucl RBC Auto (Bld) [#/Vol]6.4 E9/LNormal4.0 - 11.0 E9/LFTMC HemeAutoSSCHEMISTRYOrdered By: SYSTEM SYSTEM on 90-60-8472Osquh gap [Moles/Vol] 19 mmol/LHigh6 - 16 mEq/LFTMC RemisolCalcium [Mass/Vol]9.4 mg/dLNormal8.9 - 11.1 mg/dLFTMC RemisolChloride [Moles/Vol]107 mmol/IYhhfzh263 - 111 mmol/LFT[facility] RemisolCO2 [Moles/Vol]18 mmol/LLow21 - 31 mmol/LFT[facility] RemisolCreatinine [Mass/Vol]0.9 mg/dLNormal0.5 - 1.3 mg/dLFTMC RemisolGFR/1.73 sq M.predicted among blacks MDRD (S/P/Bld) [Vol rate/Area]mL/min/1.73 h3Lakmjk>=59mL/min/1.73 m2[facility] Chem SGFR/1.73 sq M.predicted among non-blacks MDRD (S/P/Bld) [Vol rate/Area]mL/min/1.73 e8Pfgqwf>=59mL/min/1.73 m2[facility] Chem SGlucose [Mass/Vol]109 mg/bYCoebtt80 - 199 mg/dLFTMC RemisolPotassium [Moles/Vol]3.6 mmol/LNormal3.5 - 5.3 mmol/LFT[facility] RemisolSodium [Moles/Vol]140 mmol/IVhwgut295 - 145 mmol/LFTMC RemisolTroponin I.cardiac [Mass/Vol]6.90 pg/mLLow10.10 - 27.10 pg/mLFTMC Remisol Urea nitrogen [Mass/Vol]24 mg/dLHigh5 - 21 mg/dLFTMC RemisolUrea nitrogen/Creatinine [Mass ratio]27 mg/stFzor76 - 20FT[facility] RemisolCOAGULATION Ordered By: Alida Arenas on 37-58-5992iDNF Coag (PPP) [Time]37.9 sHigh25.1 - 36.5 second(s)[facility] Auto CoagINR Coag (PPP) [Relative time]1.0 {INR}Invalid Interpretation CodeFTMC Auto CoagPT Coag (PPP) [Time]11.3 sNormal9.4 - 12.5 second(s)[facility] Auto CoagHEMATOLOGYOrdered By: SYSTEM SYSTEM on 07-27-2022 Basophils/100 WBC (Bld)0.4 %Normal0.0 - 2.0 %[facility] HemeAutoSSComment on above: Result Comment: Collection date/time has been modified to: 17:38:00. Previous collection date/time: 18:15:00.Basophils/Leukocytes Auto (Bld) [Pure # fraction]0.0 E9/LNormal0.0 - 0.2 E9/LFTMC HemeAutoSSComment on above:Result Comment: Collection date/time has been modified to: 17:38:00. Previous collection date/time: 18:15:00.Eosinophils/100 WBC (Bld)0.7 %Normal0.0 - 8.0 %[facility] HemeAutoSSComment on above:Result Comment: Collection date/time has been modified to: 17:38:00. Previous collection date/time: 18:15:00.Eosinophils/Leukocytes Auto (Bld) [Pure # fraction]0.1 E9/LNormal0.0 - 0.5 E9/LFTMC HemeAutoSSComment on above:Result Comment: Collection date/time has been modified to: 17:38:00. Previous collection date/time: 18:15:00.Lymphocytes/100 WBC (Bld)14.2 %Normal 14.0 - 50.0 %[facility] HemeAutoSSComment on above:Result Comment: Collection date/time has been modified to: 17:38:00. Previous collection d ate/time: 18:15:00.Lymphocytes/Leukocytes Auto (Bld) [Pure # fraction] 1.4 E9/LNormal1.0 - 4.0 E9/LFTMC HemeAutoSSComment on above:Result Comment: Collection date/time has been modified to: 17:38:00. Previous collection date/time: 18:15:00.Monocytes/100 WBC (Bld)6.8 %Normal4.0 - 14.0 %[facility] HemeAutoSSComment on above:Result Comment: Collection date/time has been modified to: 17:38:00. Previous collection date/time: 18:15:00.Monocytes/Leukocytes Auto (Bld) [Pure # fraction]0.7 E9/LNormal0.2 - 1.0 E9/LFTMC HemeAutoSSComment on above:Result Comment: Collection date/time has been modified to: 17:38:00. Previous collection date/time: 18:15:00.Neutrophils/100 WBC (Bld)77.9 %High36.0 - 75.0 %[facility] HemeAutoSSComment on above:Result Comment: Collection date/time has been modified to: 17:38:00. Previous collection date/time: 18:15:00. Neutrophils/Leukocytes Auto (Bld) [Pure # fraction]7.6 E9/LHigh2.0 - 7.5 E9/L [facility] HemeAutoSSComment on above:Result Comment: Collection date/time has been modified to: 17:38:00. Previous collection date/time: 18:15:00.HEMATOLOGYOrdered By: Franny Huggins on 89-96-3871Vfgesvvknxh distribution width (RBC) [Ratio]13.7 %Bnyshk18.9 - 14.2 %[facility] HemeAutoSSComment on above:Result Comment: Collection date/time has been modified to: 17:38:00. Previous collection date/time: 18:15:00.Hematocrit (Bld) [Volume fraction]44.8 %Huynfm24.0 - 46.0 %FT HemeAutoSSComment on above:Result Comment: Collection date/time has been modified to: 17:38:00. Previous collection date/time: 18:15:00.Hemoglobin (Bld) [Mass/Vol]14.6 g/dL Pnewvv53.0 - 16.0 gm/dLFT HemeAutoSSComment on above:Result Comment: Collection date/time has been modified to: 17:38:00. Previous collection date/time: 18:15:00.MCH (RBC) [Entitic mass]28.3 pgNormal 27.0 - 34.0 pgFTMC HemeAutoSSComment on above:Result Comment: Collection date/time has been modified to: 17:38:00. Previous collection d ate/time: 18:15:00.MCHC (RBC) [Mass/Vol]32.6 g/xNEyrhxj30.4 - 36.0 gm/dLFT HemeAutoSSComment on above:Result Comment: Collection date/time has been modified to: 17:38:00. Previous collection date/time: 18:15:00.MCV (RBC) [Entitic vol]86.7 eWNussci68.0 - 100.0 fLFT HemeAutoSS Comment on above:Result Comment: Collection date/time has been modified to: 17:38:00. Previous collection date/time: 18:15:00.Platelet mean volume (Bld) [Entitic vol]8.2 fLNormal6.4 - 10.8 fLFT HemeAutoSSComment on above:Result Comment: Collection date/time has been modified to: 17:38:00. Previous collection date/time: 18:15:00.Platelets (Bld) [#/Vol]417.0 E9/YPsidyg081.0 - 500.0 E9/LFTMC HemeAutoSSComment on above:Result Comment: Collection date/time has been modified to: 17:38:00. Previous collection date/time: 18:15:00.RBC (Bld) [#/Vol]5.2 E12/LNormal4.3 - 5.9 E12/[facility] HemeAutoSSComment on above:Result Comment: Collection date/time has been modified to: 17:38:00. Previous collection date/time: 18:15:00.WBC corrected for nucl RBC Auto (Bld) [#/Vol]9.7 E9/LNormal 4.0 - 11.0 /[facility] HemeAutoSSComment on above:Result Comment: Collection date/time has been modified to: 17:38:00. Previous collection d ate/time: 18:15:00.Laboratory - Microbiology and Antimicrobial susceptibilityOrdered By: Mariana Espinoza on 58-42-3214Ochcehfd identified Cx Nom (U) <10,000 cfu/ml Mixed skin contaminants Mixed cady (multiple species present) [facility] CampusURINALYSISOrdered By: Alida Arenas on 29-94-8319Vwxxerfo LM Ql (Urine sed)Trace /HPFNormalTrace/HPFFT UA Auto SS Bilirubin Ql (U)Negative (07/27/22 6:22 PM)NormalNegativeEL[facility] UA Auto SSClarity (U)Clear (07/27/22 6:22 PM)NormalClearFJEFFERSON [facility] UA Auto SSColor (U)Yellow (07/27/22 6:22 PM)NormalYellowFT UA Auto SSEpithelial cells.squamous LM.HPF (Urine sed) [#/Area]3-4 /HPFNormal0-2/HPFFTMC UA Auto SSGlucose Test strip (U) [Mass/Vol]Negative (07/27/22 6:22 PM)NormalNegativeELKVIEW [facility] UA Auto SSHemoglobin Ql (U)Negative (07/27/22 6:22 PM)NormalNegativeELKVIEW [facility] UA Auto SSKetones (U) [Mass/Vol]3+ *ABN* (07/27/22 6:22 PM)Invalid Interpretation CodeNegativeELKVIEW GENERAL [facility] UA Auto SS [place].plasma/[place].RBC (Bld) [Mass ratio]0-3 /HPFNormal0-3/HPFELKVIEW GENERAL HOSP[facility] UA Auto SSMucus Ql (Urine sed)Trace (07/27/22 6:22 PM)NormalELKVIEW [facility]AL [facility] UA Auto SSNitrite Ql (U)Negative (07/27/22 6:22 PM)NormalNegativeELKVIEW [facility] UA Auto SSpH (U)5.5 *NA* (07/27/22 6:22 PM)Invalid Interpretation Code5.0 - 9.0[facility] UA Auto SSProtein (U) [Mass/Vol]Negative (07/27/22 6:22 PM)NormalNegativeELKVIEW [facility] UA Auto SSSpecific gravity (U) [Rel density] 1.025 *NA* (07/27/22 6:22 PM)Invalid Interpretation Code1.005 - 1.030[facility] UA Auto SSUA Spec DescClean Catch (07/27/22 6:22 PM)NormalELKVIEW [facility]AL [facility]OSP[facility] UA Auto SSUrobilinogen Qn (U)0.3726421 {Yumiko'U}/dLNormal0.0 - 1.0 EU/dLELKVIEW GENERAL HOSPITAL [facility] UA Auto SSWBC Auto Ql (U)1+ *ABN* (07/27/22 6:22 PM)Invalid Interpretation CodeNegativeELKVIEW [facility] UA Auto SSWBC LM.HPF (Urine sed) [#/Area]6-15 /HPFInvalid Interpretation Code0-5/HPFELKVIEW GENERAL HOSPITAL [facility] UA Auto SS CHEMISTRYOrdered By: SYSTEM SYSTEM on 34-86-3311Hvtvk gap [Moles/Vol]11 mmol/L Normal6 - 16 mEq/LFTMC RemisolCalcium [Mass/Vol]9.1 mg/dLNormal8.9 - 11.1 mg/dL [facility] RemisolChloride [Moles/Vol]107 mmol/MGrfzmv687 - 111 mmol/LFT[facility] RemisolCO2 [Moles/Vol]24 mmol/HAnqvqo09 - 31 mmol/LFTMC RemisolCreatinine [Mass/Vol]0.8 mg/dLNormal0.5 - 1.3 mg/dLFTMC RemisolGFR/1.73 sq M.predicted among blacks MDRD (S/P/Bld) [Vol rate/Area]mL/min/1.73 m7Yrbmwt>=59mL/min/1.73 m2FT Chem S GFR/1.73 sq M.predicted among non-blacks MDRD (S/P/Bld) [Vol rate/Area] mL/min/1.73 b6Fvjscl>=59mL/min/1.73 m2FT Chem SGlucose [Mass/Vol]85 mg/dL Ptuzwc69 - 199 mg/dLFTMC RemisolPotassium [Moles/Vol]4.2 mmol/LNormal3.5 - 5.3 mmol/LFT[facility] RemisolSodium [Moles/Vol]138 mmol/GYskeao056 - 145 mmol/LFT[facility] Remisol Urea nitrogen [Mass/Vol]17 mg/dLNormal5 - 21 mg/dLFTMC RemisolUrea nitrogen/Creatinine [Mass ratio]21 mg/hjHbnu62 - 20[facility] RemisolHEMATOLOGYOrdered By: SYSTEM SYSTEM on 52-59-4033Eddzwqcdg/100 WBC (Bld)1.2 %Normal0.0 - 2.0 %[facility] HemeAutoSSBasophils/Leukocytes Auto (Bld) [Pure # fraction]0.1 E9/LNormal0.0 - 0.2 E9/LFTMC HemeAutoSSEosinophils/100 WBC (Bld)2.7 %Normal0.0 - 8.0 %[facility] HemeAutoSSEosinophils/Leukocytes Auto (Bld) [Pure # fraction]0.2 E9/LNormal0.0 - 0.5 E9/LFTMC HemeAutoSSLymphocytes/100 WBC (Bld)29.2 %Igkapv02.0 - 50.0 %[facility] HemeAutoSSLymphocytes/Leukocytes Auto (Bld) [Pure # fraction]2.3 E9/LNormal1.0 - 4.0 E9/LFT[facility] HemeAutoSSMonocytes/100 WBC (Bld)7.2 %Normal4.0 - 14.0 %[facility] HemeAutoSSMonocytes/Leukocytes Auto (Bld) [Pure # fraction]0.6 E9/LNormal0.2 - 1.0 E9/LFTMC HemeAutoSSNeutrophils/100 WBC (Bld)59.7 %Vrwrmw96.0 - 75.0 %[facility] HemeAutoSSNeutrophils/Leukocytes Auto (Bld) [Pure # fraction]4.7 E9/LNormal2.0 - 7.5 E9/LFT[facility] HemeAutoSSHEMATOLOGYOrdered By: Franny Huggins on 07-19-2022 Erythrocyte distribution width (RBC) [Ratio]13.9 %Nxuepm85.9 - 14.2 %[facility] HemeAutoSSHematocrit (Bld) [Volume fraction]42.7 %Atkqfl54.0 - 46.0 %[facility] HemeAutoSSHemoglobin (Bld) [Mass/Vol]14.2 g/gBGjuvuh69.0 - 16.0 gm/dLFTMC HemeAutoSSMCH (RBC) [Entitic mass]29.0 gnAjcxku90.0 - 34.0 pgFTMC HemeAutoSSMCHC (RBC) [Mass/Vol]33.2 g/dILojmny42.4 - 36.0 gm/dLFTMC HemeAutoSSMCV (RBC) [Entitic vol]87.3 jMLisijt86.0 - 100.0 fLFTMC HemeAutoSSPlatelet mean volume (Bld) [Entitic vol]7.8 fLNormal6.4 - 10.8 fLFTMC HemeAutoSSPlatelets (Bld) [#/Vol]415.0 E9/GBinlqk844.0 - 500.0 E9/LFTMC HemeAutoSSRBC (Bld) [#/Vol]4.9 E12/LNormal4.3 - 5.9 E12/LFTMC HemeAutoSSWBC corrected for nucl RBC Auto (Bld) [#/Vol]7.8 E9/LNormal4.0 - 11.0 E9/LFT[facility] HemeAutoSSOperative Reporton 01-22-2018 Operative ReportMR#: [id number] [facility] Pt[facility] Name: Tato Haque Room #: 0C DischargeDate: Birthdate: 1960 OPERATIVE REPORTDATE OF SURGERY: 01/22/2018SURGEON: JOHNNY MayesREOPERATIVE DIAGNOSIS: Chronic wound, left breast, radiated field.POSTOPERATIVE DIAGNOSIS: Chronic wound, left breast, radiated field.PROCEDURE:1. Excision of open wound, 5 x 3 cm, 5 cm deep.2. 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 She had a lumpectomy and radiation and made anuneventful recovery initially. Recently, she was complaining feeling of alump and abnormal appearance of the scar inthe left lateral breast and hadbiopsy in November [...] No granulations. Woundis approximately 5 cm deep. Consid ering long treatment and no granulationsand condition of the tissue, recommendation is to proceed with excisionaltreatment and closure. Risks of bleeding, infection, need for additionalprocedures, poor scarring and healing, nonhealing over the radiated area,and need for additional procedures in the future discussed. The patientappears to be well informed willing to proceed with surgical treatment.Preoperatively, questions answered, consent signed, and marking wasperformed.PROCEDURE IN DETAIL: The patient was taken to the operating room,positioned supine on the table, general endotracheal anesthesia introduced,area prepped and draped in usual sterile fashion with Hibiclens arms inabducted position, sterile dressing performed.Time-out was called. The patient, procedure, site of surgery, andassociated issues were discussed. No concerns expressed by the surgicalteam.Procedure, local anesthesia with lidocaine 1% with epi mixed with Marcaine0.25% at 1:1 mixture introduced 15 mL around the field of the plan forexcision. Methylene blue coloring of the wound performed. At this point,elliptical excision measured 5 x 3 cm, excising all irregular tissuehardened and irregular edges proceeded through the full- thickness of theskin with a 15 blade and proceeding further down to the chest wall forapproximately 5.5 to 6 cm deep completely excising all methylene bluecolored wound. With excision,noticeable part is the minimal topractically no bleeding [...] patient to confirm hemostasisAt this point, closure initiatedby closing the deep layer lnxgvmnuds-lg-poqgl Vicryl 0 sutures providing good closure and minimizingamount of the space. The 2nd layer was closed in the similar mannerwith 0 Vicryl and 2-0 PDS providing good alignment and apposition of thetissue to minimize the space and provide alignmentof the tissue andthe deep dermal closure with [...] 3 and 5.5 cm deep.Electronically Signed by:Lc Bentley MD 01/28/2018 05:37 P GLENNA Mayesate Dict: 01/22/2018/10:50 A/Lc Bentley MDDate Trans: 01/22/2018 11:44 A/Melany_JN:[id number]: Lc Platt M.D. [address] [facility] [id number] Health St[address] Anne HospitalPO GLUCOSE LABon 32-56-9006Atysmwd mass iphl346 mg/lBXsmw43-942Six Georgetown Behavioral HospitalComment on above:Performed By: #### [id number] ####[place] [address] [address] Vital Signs Date TimeVital SignValuePerforming DwxgapnmeTugxvgij89-04-7984 11:21-0500Blood Pressure LocationJodi Chris [phone]-KzrudFirelands [facility] Center 11-08-2024 11:21-0500Diastolic blood rmcpapkl46 mm[Hg]Yaneth Chris [phone]-ZgeoxFirelands Regional Medical Center 11-08-2024 11:21-0500Heart rate88 /minJodi Chris [phone]-IjefjFirelands Regional Medical Center 11-08-2024 11:21-0500Respiratory rate18 /minJodi Chris [phone]-SinfzFirelands Regional Medical Center 11-08-2024 11:21-0598YnU0% (BldA) [Mass fraction]98 %Yaneth Chris [phone]-XcywgFirelands Regional Medical Center 11-08-2024 11:21-0500Systolic blood rbvbvsev345 mm[Hg]Yaneth Chris [phone]-SwaryFirelands Regional Medical Center 09-14-2024 13:51-0500Body .4 Ruben Buchanan MD Work Phone: cSt. [facility] CampusQshyrt20-31-3455 13:51-0500Body mass index (BMI) [Ratio]35.95 kg/z4TfbtjgJason Buchanan MD Work Phone: cSt. [facility] CampusZwudqe95-38-4230 13:51-0500Body temperature 97.59 [degF]Jason Buchanan MD Work Phone: [phone] [place], [place] 7344411-19-2024 13:51-0500Body muvfed26.5 kgJason Buchanan MD Work Phone: [phone] [place], [place] 1273311-19-2024 13:51-0500Diastolic blood bhkielkk57 mm[Hg]Jason Buchanan MD Work Phone: 1(615)948-[address] [place], [place] 1273311-19-2024 13:51-0500Heart rate98 /min Jason Buchanan MD Work Phone: [phone]11-19-2024 13:51-0500Respiratory rate 16 /minJason Buchanan MD Work Phone: 1([phone])689-[address] [place], [place] 7344411-19-2024 13:51-9624UvK1% (BldA) [Mass fraction]97 %Jason Buchanan MD Work Phone: [phone])426-[facility]3VSt. Mary's Medical Center, [facility] CampusUqlwae10-51-1449 13:51-0500Systolic blood vedmkqrg094 mm[Hg]Jason Buchanan MD Work Phone: [phone])677-[address] [place], [place] 734[address]10-20-2022 14:35-0400Blood Pressure Tanya Mahajan [facility]10-20-2022 14:35-0400 Diastolic blood anngcbpi29 mm[Hg]Ady Mahajan [facility]10-20-2022 14:35-0400Heart rate82 /minAdy Mahajan [facility]10-20-2022 14:35-0400 Respiratory rate18 /minAdy Mahajan [facility]10-20-2022 14:35-6341DvE9% (BldA) [Mass fraction]100 %Ady Mahajan [facility]10-20-2022 14:35-0400 Systolic blood wszbzlyi986 mm[Hg]Ady Mahajan [facility]10-10-2022 13:05-0400Blood Pressure LocationSbee Taylor [phone]-MpuarAultman Orrville Hospital 08-05-2022 13:05-0400Diastolic blood yelxzguw86 mm[Hg]Keshia Taylor [phone]-JptvvAultman Orrville Hospital 08-05-2022 13:05-0400Heart rate64 /minSbee Taylor [phone]-IvgrrAultman Orrville Hospital 08-05-2022 13:05-6240LvP9% (BldA) [Mass fraction]98 %Keshia Taylor [phone]-WzbqnAultman Orrville Hospital 08-05-2022 13:05-0400Systolic blood clpiswwd588 mm[Hg]Keshia Taylor [phone]-FlaeqAultman Orrville Hospital 07-29-2022 15:00-0400Hourly RoundingPatrick CHERYL [facility]10-03-2022 15:00-0400 Promise to ReturnPatrick CHERYL [facility]10-03-2022 14:00-0400 Hourly RoundingPatrick CHERYL [facility]10-03-2022 14:00-0400 Promise to ReturnPatrick CHERYL [facility]10-03-2022 14:00-8899CyI1% (BldA) [Mass fraction]97 %Félix DAILYSLIN [facility]10-03-2022 13:00-0400 Hourly RoundingPatrick CHERYL [address]10-03-2022 13:00-0400 Promise to ReturnPatrick CHERYL [address] [place], [place] 8914110-03-2022 11:10-0400 Diastolic blood newrcjav13 mm[Hg]Félix DAILYSLIN [address] [place], [place] 8914110-03-2022 11:10-0400Heart rate76 /minPatrick CHERYL [address] [place], [place] 8914110-03-2022 11:10-0400Mean blood ooeizswq25 mm[Hg]Félixjosé DAILYSLIN [address] [place], [place] 8914110-03-2022 11:10-0400 Respiratory rate16 /minPatrick CHERYL [address] [place], [place] 8914110-03-2022 11:10-0400 Systolic blood ipizjsao637 mm[Hg]Félix DAILYSLIN [address] [place], [place] 8914110-03-2022 11:06-0400Blood Pressure LocationPatrick CHERYL [address] [place], [place] 8914110-03-2022 11:06-0400Body wfhzgndngki57.52 [degF]Félix DAILYSLIN [address] [place], [place] 8914110-03-2022 11:06-0400 BP/Pulse Patient PositionPatrick CHERYL [address] [place], [place] 8914110-03-2022 11:06-0400 Diastolic blood lvsjsose67 mm[Hg]Félixjosé DAILYSLIN [address]10-03-2022 11:06-0400Heart rate76 /minPatrick CHERYL [address] [place], [place] 8914110-03-2022 11:06-0400Mean blood fhqhltji15 mm[Hg]Félix CHERYL [address]10-03-2022 11:06-1969EoD5% (BldA) [Mass fraction]96 %Félix LUNA [address] [place], [place] 8914110-03-2022 11:06-0400 Systolic blood mm[Hg]Félix LUNA [address] [place], [place] 8914110-03-2022 08:29-0400 Diastolic blood loyhqrqv05 mm[Hg]Félix LUNA [address] [place], [place] 8914110-03-2022 08:29-0400 Systolic blood ucdcsxjb017 mm[Hg]Félix LUNA [address] [place], [place] 8914110-03-2022 07:31-0400Blood Pressure LocationParamiro LUNA [address] [place], [place] 8914110-03-2022 07:31-0400Body mwarumjoiuk07.7 [degF]Félix LUNA [address] [place], [place] [id number] 07:31-0400 BP/Pulse Patient PositionParamiro LUNA [address] [place], [place] [id number] 07:31-0400Heart rate72 /minPatrick CHERYL [address] [place], [place] [id number] 07:31-0400Mean blood smhfynei712 mm[Hg]Félix LUNA [address] [place], [place] [id number] 07:15-0400Heart rate72 /minPatrick CHERYL [address] [place], [place] [id number] 07:15-0400Mean blood hnxvitxc393 mm[Hg]Félix LUNA [address]10-03-2022 07:15-0400 Respiratory rate16 /minPatrick CHERYL [address] [place], [place] [id number] 03:21-0400Body snyghgxwugb38.7 [degF]Félix LUNA [address] [place], [place] [id number] 03:21-0400Heart rate70 /minPatrick CHERYL [address] [place], [place] [id number] 03:21-0400Mean blood gxnzemko89 mm[Hg]Félix LUNA [address] [place], [place] [id number] 03:21-0400 Respiratory rate18 /minPatrick CHERYL [address] [place], [place] [id number] 19:29-0400Heart rate72 /minPatrick CHERYL [address] [place], [place] [id number] 19:29-0400Mean blood dyqixlkt56 mm[Hg]Félix LUNA [address] [place], [place] [id number] 16:04-0400Blood Pressure LocationPatrick CHERYL [address] [place], [place] [id number] 16:04-0400 BP/Pulse Patient PositionPatricjluis DAILYCHERYL [address] [place], [place] [id number] 00:20-0400Heart rate88 /minPatrick CHERYL [address] [place], [place] [id number] 21:43-0400 Respiratory rate17 /minPatrick CHERYL [address] [place], [place] [id number] 19:15-0400 Respiratory rate23 /minPatrick CHERYL [address] [place], [place] [id number] 18:49-0400 Respiratory rate20 /minPatrick CHERYL [facility]10-01-2022 17:27-0400gluc 93 mg/dLPatrick CHERYL [facility]10-01-2022 17:27-0400gluc Félixjosé LUNA [facility]09-29-2022 08:10-0400Body qtgaqlbviuy24.88 [degF]Ady De La Vegamarian [address]09-29-2022 08:10-0400 Diastolic blood jrvkiapt40 mm[Hg]Ady Mahajan [address]09-29-2022 08:10-0400Heart rate66 /minAdy Lundbergpedro [address]09-29-2022 08:10-0400 Respiratory rate16 /minRyan Zaina [address]09-29-2022 08:10-3123HsJ0% (BldA) [Mass fraction]97 %Ady Zaina [address] [place], [place] [id number] 08:10-0400 Systolic blood yfbibnsj135 mm[Hg]Ady Mahajan [address] [place], [place] [id number] 13:16-0400Blood Pressure LocationRyronald De La Vegamarian [address] [place], [place] [id number] 13:16-0400 Diastolic blood iwgxixyp68 mm[Hg]Ady Mahajan [address] [place], [place] 2827009-16-2022 13:16-0400Heart rate75 /minRyan Toñoerson [address]09-16-2022 13:16-0400 Respiratory rate18 /minRyan Toñoerson [facility]09-16-2022 13:16-3160GsC4% (BldA) [Mass fraction]97 %Ady Mahajan [facility]09-16-2022 13:16-0400 Systolic blood qqxvorer469 mm[Hg]Ady Mahajan [facility]04-27-2022 15:10-0400 Diastolic blood apxkrnfr82 mm[Hg]Keshia Taylor [phone]-MmfelAultman Orrville Hospital 04-27-2022 15:10-0400Mean blood mm[Hg]Keshia Taylor [phone]-ZyxqrAultman Orrville Hospital 04-27-2022 15:10-0400Systolic blood jlmvjoxp364 mm[Hg] Keshiatung Taylor [phone]-GwzjaAultman Orrville Hospital 04-27-2022 14:49-0400Blood Pressure LocationSbee Taylor [phone]-ZictpAultman Orrville Hospital 04-27-2022 14:49-0400Diastolic blood nyajdwsx00 mm[Hg] Keshia Taylor [phone]-QdoneAultman Orrville Hospital 04-27-2022 14:49-0400Heart rate98 /minSangeltung Jose R [phone]-PusmiAultman Orrville Hospital 04-27-2022 14:49-3793IxP8% (BldA) [Mass fraction]97 % Keshia Jose R [phone]-RcskmAultman Orrville Hospital 04-27-2022 14:49-0400Systolic blood mm[Hg] Keshia Taylor [phone]-LnpwnAultman Orrville Hospital Encounters Encounter DateEncounter TypeCare ProviderFacilityStart: 78-22-5654uooyehmejcFrcx L SchwabFacility:[facility]vueStart: 28-61-9738vtaqvytfwdNnvk L Chris Facility:[facility]vueStart: 07-06-2025 End: 36-36-8196tiksgzukghJqhv L SchwabFacility:MCStart: 06-22-2025 End: 39-31-3860zdmmfnjbhzIzdqyo E. RossFacility:[facility] BellevueStart: 05-09-2025 End: 14-01-6649qfohapqgycUeadhu E Ross MD Work Phone: [facility] Work Phone: Start: 05-09-2025 End: 21-24-0170Trnjznsczf Bernard Taylor MD-[facility] TherapyStart: 03-22-2025 End: 21-68-2143yyfivjkwswLvavjp E. 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 Dx)Start: 09-14-2024 End: 47-05-0182uvmqczlataLNHZEJ E ROSSFacility:[facility] HospitalStart: 29-86-3018YxvphvTqvhc Karamlou MD Work Phone: Hematology/OncologyComment on above:Refill Request Start: 07-10-2023 End: 93-69-9074Fujmcxgbet hospital visit by physiciani [facility] (Lg Bore/1.5t)Radiology MRIComment on above:Mass of breast, unspecified laterality [N63.0]Start: 96-15-7117Rfkpwooka encounterRosita AVALOS-C Work Phone: Cancer Appts MCComment on above:Breast MRIStart: 44-81-3344Kdcxhorsc encounterRosita Meza PA-C Work Phone: Hematology/OncologyComment on above:ResultsStart: 21-33-9944Ceelklfmj encounterDana Tony RN Work Phone: Cangcz Appts MCComment on above:Appointment ConfirmationStart: 98-99-5673YjqwsqGqnaqnx G Cullen RN Work Phone: Hematology/OncologyComment on above:Refill Request Start: 46-24-7430Siosgwozt encounterAminah Bradshaw RNHematology/OncologyComment on above:Patient UpdateStart: 80-77-6184EpfuphPybkb Karamlou MD Work Phone: Hematology/OncologyComment on above:Refill Request Start: 07-56-4558CofsiyCzoyj M Musser PA-C Work Phone: Hematology/OncologyComment on above:Refill Request Start: 08-29-2022 End: 23-40-2862ggkiippyhdLW CHRISTINE ZULETAFacility:A1Qxkpd: 08-15-2022 End: 38-32-8626Ngsxedi encounter Kuldip Mahajan [facility] Start: 08-12-2022 End: 14-45-1088liibagggveUKJHM KARAMLOUFacility:Q5Zosol: 06-69-9552JbivsaDocptAlin Garcia MD Work Phone: Hematology/OncologyComment on above:Refill Request Start: 08-05-2022 End: 99-36-2958Culozva encounter Carmela Taylor [phone]-DygknAultman Orrville Hospital Start: 07-27-2022 End: 70-41-7543JtvxjcigfhnNvhjrrt A BRESLIN [facility] Start: 07-25-2022 End: 85-69-8350Qanyyprkk to same day surgery Nicolle Mahajan [facility] Start: 07-19-2022 End: 78-24-9287Tfznrrw encounter Kuldip Mahajan [facility] Start: 07-12-2022 End: 41-74-8677Coqsute encounter Kuldip Mahajan [facility] Start: 07-08-2022 End: 82-11-7192Osblhmf encounter Goldie BOWDEN [facility] Start: 05-29-2022 End: 65-69-3180Vujtnkz encounter procedureSbee Taylor [facility] Start: 87-81-8259AnptnvQezwaAlin Garcia MD Work Phone: Hematology/OncologyComment on above:Refill Request Start: 41-14-2116Hgcjahewf encounterClaritza Garcia MD Work Phone: Hematology/OncologyComment on above:Records faxed Start: 02-20-2022 End: 77-95-0902Eapyxzd encounter procedureSbee Taylor [phone]-JwybkMercy Health [facility] Medicine [facility] Start: 01-26-2021 End: 77-54-6514Tstalytzfk [facility] Ctr- Covid VaccineStart: 01-22-2018 End: 79-68-8553JbnwfayjjzJLEDAP KRIEGELFacility:[facility]ENTERtart: 01-12-2018 End: 98-74-6027BklfdiyelsLZPMDHY PHYSICIANFacility:[facility] Procedures DateProcedureProcedure DetailPerforming ClinicianStart: 28-92-0568Mzx breast without&with contrast w/cad bilateralRosita Meza PA-C Work Phone: Start: 09-12-7276Pqhxrci catheterizationAdy Mahajan Start: 36-32-6574QaoochyvpnpPqhprp Jose R Start: 48-57-1737Huix integ extremities ant trunk & perineum nosSARAH Rajinder GERKENStart: 64-10-9988EFJTC RPR TRUNK 2.6-7.5 JANEY BENTLEYStart: 69-56-9173Obcjuy rhytidoplastySamaricarmenel Jose R Start: 80-10-4711Wizszugrx mammoplastySaelo Taylor Start: 35-99-0675Lnlijp surgery (qualifier value)Keshia Taylor comment on above:breast infection, that required surgical interventionbreast infection, that required surgical interventionStart: 24-62-1916Eebabk of stomachSamaricarmenel Jose R Start: 88-46-6505KtqscwnluuxmZogxhv Ross Start: 83-08-4239Dnqrbxmfjv of left breastKeshia Taylor Start: 29-17-4115OwsqpxvpnilszSuzpja Ross Plan of Treatment DateCare ActivityDetailAuthorStart: 01-18-2350OAI Vaccine (1 - 1-dose 75+ series)RSV Vaccine (1 - 1-dose 75+ series)[facility]27 Diabetes ScreeningDiabetes ScreeningSt. Elizabeth Hospitaltart: 09-14-2025 End: 79-03-1638BFI Breast - bilateral screeningMAM SCREENING W EL Radiology Routine History of ductal carcinoma in situ (DCIS) of breast Expected: 09/14/2025, Expires: 10/14/2025[facility] Work Phone: comment on above:Expected: 09/14/2025, Expires: 10/14/2025Start: 09-13-2025 End: 28-10-8555Attwkl-up ojxbncxfl69/18/2025 2:00 PM EST Visit (SP) Office Hematology/Oncology [address] [place] [phone] Jason Buchanan MD [address] [place] [address] 1 year follow upHematology/OncologyComment on above:1 year follow upStart: 09-13-2025 End: 63-40-4456Gbceewy encounter ufifottyj77/18/2025 1:45 PM EST Office Visit [facility] [address] [place] [address] [facility] LaboratoryComment on above:LabStart: 72-30-3527Uhinv-19 Vaccine ( season)Covid-19 Vaccine ( season)[facility] 07-20-0266Ylhhrtfav vaccination Influenza Vaccine (#1)[facility]: 08-89-3508Mimhynq Directive DiscussionAdvance Directive DiscussionSt. [facility]: 01-01-2024 Pneumococcal Vaccine: 65+ (1 of 1 - PCV)Pneumococcal Vaccine: 65+ (1 of 1 - PCV) [facility]: 20-12-2627Tzgocckxo for malignant neoplasm of breast Mammogram ScreeningCleAshtabula County Medical Centertart: 83-55-5686Jrmmp-19 Vaccine ( season)Covid-19 Vaccine ()[facility]: 06-27-2023 Influenza vaccinationSt. [facility]: 05-30-2023 End: 74-72-1939CHFSYEMEEB BLDCREATININE BLD Lab Routine Mass of breast, unspecified laterality Ductal carcinoma in situ (DCIS) of left breast Expected: 05/30/2023, Expires: 07/30/2023[facility] Work Phone: Comment on above:Expected: 05/30/2023, Expires: 07/30/2023Start: 76-08-5621COCTPMXUWJ ASSESSMENTDEPRESSION ASSESSMENTSt. [facility]: 80-28-2103Zoktenbsq vaccinationINFLUENZA (#1)[facility]: 00-20-9119UOFKCUUXCN ASSESSMENTDEPRESSION ASSESSMENTSt. [facility]: 78-27-5772BBFXJ-19 VACCINE (4 - Booster for Pfizer series)COVID-19 VACCINE (4 - Booster for Pfizer series)[facility]: 23-39-9431BMNOU-19 VACCINE (4 - Pfizer series)COVID-19 VACCINE (4 - Pfizer series)[facility]: 08-16-7788QTUNH-19 VACCINE (3 - Booster for Pfizer series)COVID-19 VACCINE (3 - Booster for Pfizer series)[facility]: 72-17-5505WGHFI-19 VACCINE (3 - Booster for Pfizer series)COVID-19 VACCINE (3 - Booster for Pfizer series) [facility]: 20-84-8559HYB Vaccine (1 - 1-dose 60+ series)RSV Vaccine (1 - 1-dose 60+ series)[facility]: 35-62-7220RYVJWOWM VACCINE (1 of 2)SHINGRIX VACCINE (1 of 2)[facility]: 19-98-1907XLLQFYFKP (FIT-DNA) COLOGUARD (FIT-DNA)[facility]: 32-64-8444EaoulhpwsfvOXTNGNNNDJJ [facility]: 77-16-9772LUDGDLTTTC CANCER SCREENINGCOLORECTAL CANCER SCREENINGSt. [facility]: 63-46-5018BO COLONOGRAPHYCT COLONOGRAPHY [facility]: 06-70-5865AKHWRAVS SCREENDIABETES SCREENDunlap Memorial Hospital Start: 48-24-4526Cthixbrx ScreeningDiabetes ScreeningSt. [facility] Hospitalt[facility]: 71-02-2011PKMEX OCCULT BLOODFECAL OCCULT BLOODSt. [facility]: 01-01-2004 Lipid 1996 panel - Serum or PlasmaLipid ScreeningSt. [facility] Hospitaltart: 64-17-0341Bwibb panelLipid ScreeningSt. [facility]: 10-84-8583SRXBW SCREENLIPID SCREENSt. [facility] Hospitalt[facility]: 33-44-0088Phgbfmemv for malignant neoplasm of colonSt. [facility]: 74-06-8545DRIEYXXYLPGZAHLGHIDMXOWCUS [facility]: 66-22-3524XxakqiyyeefBkkieeewu ClinicStart: 60-40-4547NKO TESTINGHPV TESTINGSt. [facility]: 05-43-3249NKI TESTINGPAP TESTING [facility]: 76-65-2498Zjaqg microalbumin profileDunlap Memorial Hospital Start: 10-90-3318Lcwokzj ScreeningAnxiety ScreeningSt. [facility] Hospitaltart: 37-95-6251Vqnfnibchv ScreeningDepression ScreeningSt. [facility] Hospitaltart: 15-27-6896QXKXBRCFT C SCREENINGHEPATITIS C SCREENINGSt. [facility]: 54-66-6615Cwxharngf C screeningHepatitis C ScreeningSt. Elizabeth Hospitaltart: 90-39-8017AQY SCREENINGHIV SCREENINGSt. [facility] Hospitalt[facility]: 23-83-1569ZOZ screeningHIV ScreeningSt. Elizabeth Hospitaltart: 76-18-7324Hnuen depression screening assessmentDEPRESSION SCREENINGDunlap Memorial Hospital End: 32-60-1817DLK BREAST WO/W IVCON BILATERALMRI BREAST WO/W IVCON BILATERAL Radiology Routine Mass of breast, unspecified laterality 1 Occurrences starting 05/22/[address] [place] [address] Work Phone: Comment on above:1 Occurrences starting 05/22/[address] [place] [address] Immunizations Immunization DateImmunizationNotesCare JtdtkmjkKyovdedn84-42-7350VNZB-VhG-7 (COVID-19) mRNA BNT-162b2 vaxSbee Taylor 234-0591Hyjnxx-RfaggAultman Orrville Hospital 10668151-10-5875lljdzxfif, injectable, quadrivalent, preservative freeClaritza Garcia MD Work Phone: [facility] HospitalKupxgg77-56-9910ftstsjhyv virus vaccine, unspecified formulationClaritza Garcia MD Work Phone: [facility] HospitalGkbhtt17-06-7876zihgvwojt nasal, unspecified formulationMri Bore/1.5t)[facility] HospitalXvtynf45-66-2215kyhemwpsh virus vaccine, unspecified formulationSbee Taylor 384-6686Ccuqdz-FqvinAultman Orrville Hospital 04896304-14-4798SLGCR-95 mRNA,UXC779i8 (Pfizer)[facility] Lro57-82-6120BXHZB-73 mRNA,QGO815u1 (Pfizer)[facility] Iqh16-95-9347jcogeo vaccine Tasha Taylor 774-9416Jeudzo-KvdryAultman Orrville Hospital 12108863-32-1152zfqemi vaccine Tahsa Taylor 334-2589Jgmubw-UmnkwAultman Orrville Hospital 10808978-71-6643uuonqeqxp nasal, unspecified formulationMri /.5t)[facility] HospitalHhazfv52-07-8235hvncogdwp virus vaccine, unspecified formulationSangeltung Jose R 060-3499Rvzwwv-RoxzzAultman Orrville Hospital 1112155-78-0425Xzzcnyos, quadrivalent, recombinant, injectable influenza vaccine, preservative freeClaritza Garcia MD Work Phone: [facility] HospitalDeonsl70-44-0765fgqax khrejugxz-S4F3-32, preservative-free, injectableClaritza Garcia MD Work Phone: [facility] HospitalNEGATED: Highlighted row has not occurred!28-41-2429ateqtliwm virus vaccine, unspecified formulationSangeltung Jose R [phone]-TuwiqAultman Orrville Hospital Payers DatePayer CategoryPayerPolicy [id number]-[id number] MEDICARE DEVOTED HEALTH [place] HMO [id number] 2024-Present [phone] [address] [place] [id number]Q8C04-26-9153 [id number]1-6628FwjqlvjFIYQMH BLUE CARD PPO OOS [id number] 2019-Present [phone] [address] [place] [address] PPO [id number] [id number] 2.0.1.323070.3.579.2. [id number] 2.0.1.584429.3.579.[id number] 2.840.1.309744.3.579.2.[id number] 2.0.1.154233.3.579.2.00419-85-9890Zhwepbw23110120 2.0.1.599584.3.579.[id number] 2.0.1.083065.3.579.2.49585-41-4720Llgxrcp24208420 2..1.458528.3.579.2.35313-47-2701Kmhgsvy14033950 2.0.1.677849.3.579.[id number] 2..1.780052.3.57[id number] 2.0.1.713630.3.579.2.[id number] 2..1.464292.3.57[id number] 2.0.1.671600.3.5[id number]-[id number] 2.840.1.442994.3.579.2.531 Social History DateTypeDetailFacilityTobacco smoking status NHISUnknown if ever smokedWayne Hospital CtrStart: 86-94-7438Plp Assigned At [facility] ClinicStart: 02-20-2022 End: 55-09-1112Yqakxmg smoking statusNever smoked tobacco (finding)[facility] Tobacco smoking statusNeverAultman Orrville Hospital Start: 09-13-2022 End: 77-36-7740Dnp Assigned At [facility] Start: 12-07-2012 End: 74-28-4953Jecrcwc use and exposureSmokeless tobacco non-userSt. Elizabeth Hospitaltart: 09-14-2021 End: 45-92-1027Eikehjb intakeCurrent drinker of alcohol (finding)[facility] HospitalHistory of tobacco usePassive smokerSt. [facility] Hospitalt[facility]: 09-13-2022 End: 07-62-9551Sihwxld of Social functionSt. Elizabeth Hospitaltart: 79-18-2635Cnwtbw identityIdentifies as female gender (finding)[facility]: 05-26-2019 Sexual orientationHeterosexual (finding)[facility] smoking status NHISUnknown if ever smokedChillicothe Va Medical Center Work Phone: SexFemale (finding)[facility] Goals DatePatient GoalDesired Activity/State Functional Status GwbhCbwdhuucrhYojznkKvoyztbl94-28-9217Haswicwvkn StatusN/[facility]10-20-2022Functional StatusN/[facility]10-10-2022Functional StatusN/[facility]10-01-2022Functional StatusN/[facility] 22-21-5526Incedvgqge StatusSum[facility]09-29-2022Functional StatusNoSum[facility] Health [facility]09-16-2022N/[facility] Clinical Notes 02-20-2022 to 06-22-2025 Note Date & KfshWhmgFjyxlezi55-70-8745 NotePatient Education Emergency Medicine Heart Attack A heart attack occurs when blood and oxygen supply to the heart is cut off. A heart attack can cause damage to the heart that cannot be fixed. A heart attack is also called a myocardial infarction, or SD. If you think you are having a heart attack, do not wait to see if the symptoms will go away. Get medical help right away. What are the causes? This condition may be caused by: ??? A fatty substance (plaque) in the blood vessels (arteries). This can block the flow of blood tothe heart. ??? A blood clot in the blood vessels that go to the heart. The blood clot blocks blood flow. ??? An abnormal heartbeat. ??? Some diseases, such as problems in red blood cells (anemia)orproblems in breathing (respiratoryfailure). ??? Tightening (spasm) of a blood vessel that cuts off blood to the heart. ??? A tear in a blood vessel of the heart. Other causes may include: ??? Using drugs such as cocaine or methamphetamine. ??? Low blood pressure. What increases the risk? Aging. The risk gets higher as you get older. ??? Having a personal or family history of chest pain, heart attack, stroke, or narrowing of the arteries in the legs, arms, head, or stomach (peripheral vascular disease). ??? Having taken chemotherapy or immune-suppressing medicines. ??? Being male. ??? Being overweight or obese. ??? Having any of these conditions: ? High blood pressure. ? High cholesterol. ? Diabetes. ??? Making lifestyle choices such as: ? Drinking too much alcohol. ? Not getting regular exercise. ? Smoking. What are the signs or symptoms? Chest pain. It may feel like: ? Crushing or squeezing. ? Tightness, pressure, fullness, or heaviness. ??? Pain in the arm, neck, jaw, back, or upper body. ??? Heartburn. ??? Upset stomach (indigestion). ??? Shortness of breath. ??? Feeling like you may vomit (nauseous). ??? Cold sweats. ??? Sudden light-headedness, dizziness, or passing out. ??? Feeling tired. How is this treated? A heart attack must be treated as soon as possible. Treatment may include: ??? Medicines to: ? Break up or dissolve blood clots. ? Thin your blood and help prevent blood clots. ? Treat blood pressure. ? Improve blood flow to the heart. ? Reduce pain. ? Reduce cholesterol. ??? Procedures to widen a blocked artery and keep it open. ??? Open heart surgery. ??? Making your heart strong again (cardiac rehabilitation) through exercise, education, and counseling. Follow these instructions at home: Medicines ??? Take rzir-fms-qowwebs and prescription medicines only as told by your doctor. ??? Do not take these medicines unless your doctor says it is okay: ? NSAIDs, such as ibuprofen, naproxen, or celecoxib. ? Any vitamins or supplements. ? Hormone replacement therapy that has estrogen with or without progestin. ??? If you are taking blood thinners: ? Talk with your doctor before taking any medicines that have aspirin or NSAIDs, such as ibuprofen. ? Take medicines exactly as told. Take them at the same time each day. ? Avoid doing things that could hurt or bruise you. Take action to prevent falls. ? Wear an alert bracelet or carry a card that shows you are taking blood thinners. Lifestyle ??? Do not smoke or use any products that contain nicotine or tobacco. If you need help quitting, ask your doctor. ??? Avoid secondhand smoke. ??? Exercise regularly. Ask your doctor about a cardiac rehab program. ??? Eat heart-healthy foods. Your doctor will tell you what foods to eat. ??? Stay at a healthy weight. ??? Learn ways to lower your stress level. ??? Do not use illegal drugs. Alcohol use ??? Do not drink alcohol if: ? Your doctor tells you not to drink. ? You are , may be , or are planning to become . ??? If you drink alcohol: ? Limit how much you have to: ? 0?1 drink a day for women. ? 0?2 drinks a day for men. ? Know how much alcohol is in your drink. In the [place] one drink equals one 12 oz bottle of beer (355 mL), one 5 oz glass of wine (148 mL), or one 1? oz glass of hard liquor (44 mL). General instructions ??? Work with your doctor to treat other problems you may have, such as diabetes or high blood pressure. ??? Get screened for depression. Get treatment if needed. ??? Keep your vaccines up to date. Get the flu shot (influenza vaccine) every year. ??? Keep all follow-up visits. Contact a doctor if: ??? You feel very sad. ??? You have trouble doing your daily activities. ??? You get light-headed or dizzy. Get help right away if: ??? You have sudden, unexplained discomfort in your chest, arms, back, neck, jaw, or upper body. ??? You have shortness of breath. ??? You have sudden sweating or clammy skin. ??? You feel like you may vomit or you vomit. ??? You fe (more content not included)...[facility]05-27-2025 NotePatient Education Nutrition BMI for Adults Body mass index (BMI) is a number found using a person's weight and height. BMI can help tell how much of a person's weight is made up of fat. BMI does not measure body fat directly. It is used instead of tests that directly measure body fat, which can be difficult and expensive. What are BMI measurements used for? BMI is useful to: ??? Find out if your weight puts you at higher risk for medical problems. ??? Help recommend changes, such as in diet and exercise. This can help you reach a healthy weight.BMI screening can be done again to see if these changes are working. How is BMI calculated? Your height and weight are measured. The BMI is found from those numbers. This can be done with U.[place] or metric measurements. Note that charts and online BMI calculators are available to help you findyour BMI quickly and easily without doing these calculations. To calculate your BMI in [place] measurements: 1. Measure your weight in pounds (lb). 2. Multiply the number of pounds by 703. ??? So, for an adult who weighs 150 lb, multiply that number by 703: 150 x 703, which equals 105,450. 3. Measure your height in inches. Then multiply that number by itself to get a measurement called inches squared. ??? So, for an adult who is 70 inches tall, the inches squared measurement is 70 inches x 70 inches, which equals 4,900 inches squared. 4. Divide the total from step 2 (number of lb x 703) by the total from step 3 (inches squared): 105,450 ? 4,900 = 21.5. This is your BMI. To calculate your BMI in metric measurements: 1. Measure your weight in kilograms (kg). ??? For this example, the weight is 70 kg. 2. Measure your height in meters (m). Then multiply that number by itself to get a measurement called meters squared. ??? So, for an adult who is 1.75 m tall, the meters squared measurement is 1.75 m x 1.75 m, whichequals 3.1 meters squared. 3. Divide the number of kilograms (your weight) by the meters squared number. In this example: 70 ?3.1 = 22.6. This is your BMI. What do the results mean? BMI charts are used to see if you are underweight, normal weight, overweight, or obese. The following guidelines will be used: ??? Underweight: BMI less than 18.5. ??? Normal weight: BMI between 18.5 and 24.9. ??? Overweight: BMI between 25 and 29.9. ??? Obese: BMI of 30 or above. BMI is a tool and cannot diagnose a condition. Talk with your health care provider about what your BMI means for you. Keep these notes in mind: ??? Weight includes fat and muscle. Someone with a muscular build, such as an athlete, may have a BMI that is higher than 24.9. In cases like these, BMI is not a correct measure of body fat. ??? If you have a BMI of 25 or higher, your provider may need to do more testing to find out if excess body fat is the cause. ??? BMI is measured the same way for males and females. Females usually have more body fat than males of the same height and weight. Where to find more information For more information about BMI, including tools to quickly find your BMI, go to: ??? Centers for Disease Control and Prevention: cdc.gov ??? [place] [employer] Association: heart.org ??? National Heart, Lung, and Blood [place]: nhlbi.nih.gov This information is not intended to replace advice given to you by your health care provider. Make sure you discuss any questions you have with your health care provider. Document Revised: 07/03/2023 Document Reviewed: 06/26/2023 [facility] Patient Education ? 2023 OptiWi-fiSum[facility] 11-08-2024 Evaluation + Plan note Diagnostic Tests Pending * PAP [id number] w/ HPV and Genotype rflx 11/08/24 [facility] [id number] Instructions* Patient Instructions* Jason Buchanan MD - 09/14/2024 2:06 PM EST Labs today Mammogram next year F/u in 1 year documented in this encounterDunlap [facility] Hospital11-19-2024 History of Present illness Narrative* Jason Buchanan MD - 09/14/2024 2:00 PM EST Images from the original note were not included. Some of the elements of this note have been copied from previous progress note dated 07/22/23. All the information has been reviewed carefully. 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 ASSESSMENT/PLAN: Tato Haque is a 62 year old female with [...] with repeat mammograms Jason Buchanan MD. CC: Alexadnra Castaneda MD I spent a total of 20 minutes on the date of the service which included preparing to see the patient, vjfd-kk-opuj patient care, obtaining and/or reviewing separately obtained history, performing a medically appropriate examination, counseling and educating the patient/family/caregiver and ordering medications, tests, or procedures. documented in this encounterDunlap Memorial Hospital11-19-2024 NoteHNO ID: [id number] Author: JASON BUCHANAN MD Service: ? Author Type: Physician Type: Progress Notes Filed: 09/14/2024 14:28 Note Text: Some of the elements of this note have been copied from previous progress note dated 07/22/23. All the information has been reviewed carefully. 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 A (more content not included)...[facility]09-14-2023 History of Present illness Narrative* Debra Cole RN - 07/10/2023 12:40 PM EDT Radiology Service Progress Note DATE OF SERVICE: [...] SIGNATURE: Debra Cole RN PATIENT NAME: Tato Haque DATE: July 10, 2023 TIME: 12:44 PM * Dani Jameson, RT(R) - 07/10/2023 12:40 PM EDT Radiology Service Progress Note PATIENT NAME: Tato Haque DATE OF SERVICE: July 10, 2023 TIME: 12:37 PM PATIENT IDENTITY VERIFICATION COMPLETED USING TWO (2) IDENTIFIERS: Name and Date of confirmedby patient verbally and Name and Date of [...] 10, 2023 12:37 PM documented in this encounterDunlap Memorial Hospital08-17-2023 Miscellaneous Notes* Telephone Encounter - Aminah Bradshaw RN - 06/12/2023 10:33 AM EDT Pt called regarding MRI appt, she had not heard back. Pt is scheduled 07/10/23 at [facility]. Information provided and pt is agreeable to POC. She denies any further questions or concerns at this time. Aminah Bradshaw RN * Telephone Encounter - Dana Mri - 06/05/2023 3:12 PM EDT Patient called in today stated her insurance told her she is out of network with [facility] and the only place she can have her MRI done Is at [facility], I had to cancel her MRI at [facility] and working on getting her MRI triaged for [facility] * Telephone Encounter - Rosita Meza PA-C - 05/30/2023 10:49 AM EDT Done Rosita Meza PA-C * Telephone Encounter - Dana Mir - 05/30/2023 10:36 AM EDT Rosita can you place Creatine orders? She is scheduled for 06/10 at 1:00 At [facility] * Telephone Encounter - Rosita Meza PA-C - 05/30/2023 10:26 AM EDT MRI breast peer to peer complete and approved Auth #[id number] Valid 05/30/2023-07/28/2023 Rosita Meza PA-C documented in this encounterDunlap Memorial Hospital08-10-2023 Miscellaneous Notes* Telephone Encounter - Dana Mir - 06/05/2023 3:07 PM EDT MRI BREAST TRIAGE FORM FAX: [id number] DATE: June 05, 2023 TIME: 3:08 PM TRACKING #. M Tiffany Haque, 62 year old Home phone: [phone] (home) BREAST TO BE SCANNED: BILATERAL DIAGNOSIS or REASON FOR EXAM: DCIS with new breast mass PREVIOUS EXAMS: Patient has Mammogram and Ultrasound both in [facility] and the [facility] ORDERING PHYSICIAN: Rosita Meza PHONE/PAGER: [phone] DOCTOR'S CHAIN PEGGER or NURSE: Dana Murray Product Safety Expert Dana Tony Nurse Pt is going out of town Jun 29- documented in this encounterDunlap Memorial Hospital08-09-2023 Miscellaneous Notes* Telephone Encounter - Tati Raza RN - 06/04/2023 4:11 PM EDT She is scheduled for MRI at [facility] on 06/10/23. * Telephone Encounter - Dana Tony RN - 05/22/2023 10:53 AM EDT Call placed to pt to review mammogram/US results. Pt would like to have her MRI's done at [facility]. MM: please sign pending orders PSS: please schedule and call pt with date and time. Thanks Dana Tony RN documented in this encounterDunlap Memorial Hospital07-31-2023 Miscellaneous Notes* Telephone Encounter - Dana Mir - 05/26/2023 9:06 AM EDT Auth still pending as of 05/26 * Telephone Encounter - Dana Mir - 05/23/2023 10:05 AM EDT Patient insurance requires Auth, I tried to do the auth and they denied it, so I am sending information for clinical review. Call placed to pt to review mammogram/US results. Pt would like to have her MRI's done at [facility]. MM: please sign pending orders PSS: please schedule and call pt with date and time. Thanks Dana Tony RN documented in this encounterDunlap Memorial Hospital07-10-2023 Miscellaneous Notes* Telephone Encounter - Dana Mir - 05/05/2023 11:24 AM EDT Patient is called and scheduled for Friday * Telephone Encounter - Aminah Bradshaw RN - 05/05/2023 10:53 AM EDT PSS: Please call to schedule pt Aminah Bradshaw RN * Telephone Encounter - Claritza Garcia MD - 05/05/2023 10:44 AM EDT She can come in for evaluation * Telephone Encounter - Aminah Bradshaw RN - 05/05/2023 10:24 AM EDT Pt found dime size lump, L Breast, near axilla along side one of her surgical scars. Just found over the weekend, Mammogram done in Jul 2022 and next scheduled Jul 2023 prior to her yearly RV. CHERY/MM: Please advise Aminah Bradshaw RN documented in this encounterDunlap Memorial Hospital10-10-2022 Hospital Discharge instructions Patient Education 08/05/2022 13:32:17 Hypertension, Adult [...] a heart attack, heart failure, a stroke, kidneydisease, and other problems. A blood pressure reading [...] on the floor. The cuff of the bloodpressure monitor will be placed directly against the [...] in sodium, added sugar, and fat. An exampleeating plan is called the DASH (Dietary Approaches [...] contain nicotine or tobacco, such as cigarettes, e- cigarettes, and chewing tobacco. If you need help quitting, ask your health care provider. Monitor your blood pressure at home as told by your health care provider. Keep all follow-up visits as told by your health care provider. This is important. Medicines Take vrns-ctj-cvonrmx and prescription medicines only as told by your health care provider. Follow directions carefully. Blood pressure medicines must be taken as prescribed. Do not skip doses of blood pressure medicine. Doing this puts you at risk for problems and can makethe medicine less effective. Ask your health care [...] Document Reviewed: 06/23/2019 Elsevier Patient Education 2019 [email or web address]. [facility] 10-03-2022 Hospital Discharge instructions Patient Education 07/29/2022 15:01:18 Core Measures: Stroke (Cerebrovascular Accident) [facility], (Custom) Stroke (Cerebrovascular Accident) A stroke is acute of brain tissue, and it is a neurologic emergency. A stroke can cause permanent loss of function of the central nervous system (brain). If the symptoms of a stroke end withoutcomplications in 24 hours, it is diagnosed as [...] factors for stroke, work with your health floor care specialist to control them. High Blood Pressure: High [...] Please call [facility]ess[facility] at [phone] ([facility]), or [phone], ext. [phone] Diabetes: Work with your healthcare professional to keep your blood sugar under control. Check yourblood sugar and take the results to your [...] has been damaged by a fatty buildup insidethe artery wall. Discuss ways to manage this with your health care provider. Atrial Fibrillation (A Fib): In A fib, your heart does not have a normal beat. This may allow clotsto form and puts you at a greater risk for having a stroke. Work with your health care provider to control your A fib. Your doctor may order special medication that helps prevent clots from forming. High blood cholesterol or high blood fats: High cholesterol increases your risk of stroke. Exerciseregularly, but talk to your health care provider first. A diet low in fat and cholesterol can help.If you have any questions about a low fat, low cholesterol diet, you can call our [facility] dry ice machine operator at [phone] Ext. [phone]. The goal for total cholesterol is less than 200, and for LDL or thebad cholesterol is less than 100. Lifestyle Management: You increase your risk of stroke if you are overweight or obese, are not veryactive, or drink too much alcohol. Enjoy a diet rich in fruits and vegetables. Exercise regularly and drink alcohol in moderation or no more than two drinks a day for men and no more than one drink aday for non- women, or don't drink at all. This will help decrease your risk of stroke. Oral Contraceptives: Taking control pills or the pill can be a risk factor for stroke especially if you smoke. Discuss using the oral contraceptives and your risk of stroke with your health floor care specialist. TREATMENT TIME IS OF THE ESSENCE! Medications to dissolve a blood clot can only be used within four and a half hours of the onset of symptoms. After that time, treatment of stroke depends on duration of symptoms, severity, and cause. Medications and diet measures may be used to address diabetes, high blood pr essure, and other risk factors. Physical therapy, speech therapy, and occupational therapy specialists will assess you and work to improve any functions impaired by the stroke. Measures will be takento prevent short and intermediate card tender complications, including aspiration pneumonia, blood clots in the leg s, bedsores, and falls. HOME CARE INSTRUCTIONS Care [...] to not run out of your medicine. Getmore while you still have a one-week supply. [...] use it at all times. Be sure youkeep your therapy appointments. Diet Certain diets may be prescribed to address high blood pressure, high cholesterol, or diabetes.Foods may need to be a special consistency [...] for more information on strokes, log onto www.ftmc.com or www.strokeassociation.org or call the [employer] [employer] at . Revised 10/2018 Follow Up Care 07/27/2022 17:27:12 With:Patrica Gardner MD, NEU Address: [address] [place] [address]- Business (1) When:08/12/2022 13:50:00 With:Keshia Taylor Address: [address] [place] [address]- Business (2) When:08/05/2022 13:00:00 [facility]10-03-2022 Evaluation + Plan noteExtracted from: Title:Discharge NoteAuthor:ASHLEY ALEJANDRA, AishaaDate:07/29/22 stable Discharge To, Anticipated II - Home [...] ELISHA Patterson Within 2 to [address] [address]- Additional Instructions: Core Measures: Stroke (Cerebrovascular Accident) [facility], (Custom) Extracted from:Title:VAMSIO Note-neurologyAuthor:Ana KERR, JakeoleDate:07/29/22 Mild intermittently-noticed language issues since cardiac catheterization [...] artery disease (I25.10: Atherosclerotic heart disease of algaaciq coronary artery withoutangina pectoris) 9. Hyperlipidemia (E78.5: Hyperlipidemia, unspecified) 10. Obstructive sleep apnea (G47.33: Obstructive sleep apnea (adult) (pediatric)) 11. Allergic rhinitis (J30.9: Allergic rhinitis, unspecified) 12. Depression (F32.A: Depression, unspecified) 13. Obesity (E66.9: Obesity, unspecified) 14. 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 DVT prophylaxis (Z29.9: Encounter for prophylactic measures, unspecified) Extracted from:Title:APSO NoteAuthor:LEX ALEJANDRA, MarinofoDate:07/28/22 61-year-old female with history of coronary artery [...] Ordered: Sbsq Observation Care/Day Moderate 25 min 56584 2. Acute headache (R51.9: Headache, unspecified) Persistent headache. Patient denies history of migraine. Started patient on morphine as needed as Toradol did not help much. Ordered: ketorolac, 15 mg = 1 mL, Injection, IV Push, q6hr PRN Headache, Stop date 08/01/22 18:44:00 EDT, Routine, Start date 07/28/22 7:45:00 EDT, 07/28/22 7:45:00 EDT Sbsq Observation Care/Day Moderate 25 min 49032 3. Urinary tract infection (N39.0: Urinary tract [...] minute(s) Sbsq Observation Care/Day Moderate 25 min 68814 4. Hypertensive urgency (I16.0: Hypertensive urgency) Present on admission. Resolved. Continue lisinopril. Continue on IV hydralazine as needed. Ordered: Sbsq Observation Care/Day Moderate 25 min 08121 5. Hypokalemia (E87.6: Hypokalemia) Potassium level 3.0. Replaced with oral potassium. Ordered: Basic Metabolic Panel Sbsq Observation Care/Day Moderate 25 min 36035 6. Metabolic acidosis, increased anion gap (E87.29: Other acidosis) Secondary to poor oral intake. Improving. Repeat BMP in AM. On IV fluid. Ordered: Basic Metabolic Panel 7. Dehydration (E86.0: Dehydration) Treating with IV fluid. 8. Coronary artery disease (I25.10: Atherosclerotic heart disease of algaaciq coronary artery withoutangina pectoris) Mild coronary artery disease. Continue on [...] breast (Z86.000: Personal history of in-situ neoplasm ofbreast) Status post radiation treatment and tamoxifen. 15. [...] Oral, Once, Stop date 07/28/22 8:00:00 EDT, Routine,Start date 07/28/22 8:00:00 EDT, 07/28/22 7:44:00 EDT Orthostatic Vitals Signs Extracted from:Title:Consult Note-neurologyAuthor:Ana KERR, JakeoleDate:07/28/22 Mild intermittently-noticed language issues since cardiac catheterization on . Some mild intermittent confusion/disorientation as well. Concern for iatrogenic embolic ischemic stroke - MRI pending. Also with holocephalic headache of unclear etiology; secondary pathology to be ruled out withMRI. 1. Acute encephalopathy (G93.40: Encephalopathy, unspecified) 2. Acute headache (R51.9: Headache, unspecified) 3. Urinary tract infection (N39.0: Urinary tract infection, site not specified) 4. Hypertensive urgency (I16.0: Hypertensive urgency) 5. Metabolic acidosis, increased anion gap (E87.29: Other acidosis) 6. Dehydration (E86.0: Dehydration) 7. Coronary artery disease (I25.10: Atherosclerotic heart disease of algaaciq coronary artery withoutangina pectoris) 8. Hyperlipidemia (E78.5: Hyperlipidemia, unspecified) 9. Obstructive sleep apnea (G47.33: Obstructive sleep apnea (adult) (pediatric)) 10. Allergic rhinitis (J30.9: Allergic rhinitis, unspecified) 11. Depression (F32.A: Depression, unspecified) 12. Obesity (E66.9: Obesity, unspecified) 13. History of ductal carcinoma in situ of breast (Z86.000: Personal history of in-situ neoplasm ofbreast) 14. DVT prophylaxis (Z29.9: Encounter for prophylactic measures, unspecified) Extracted from:Title:Admission H & PAuthor:Félix LUNA DO ADate:07/27/22 1. Acute encephalopathy (G93 .40: Encephalopathy, unspecified) [...] of above not rule out vascular related eventsas well. Patient received diphenhydramine and Toradol at 1855. When asked if there was any benefit to these medications she replied I do not know I fell asleep . She was complaining of a headache atthis time. Attempt to treat conservatively bringing her relief but not compounding above. Make Toradol available for her as needed we the pros and cons of this and attempt to being conservative and av oiding agents that could cause altered sensorium against [...] Estrace, 6-15 WBCs and trace bacteria negative nitratesshe does admit to urgency over the past [...] induced as result of above. Until stroke isruled out ,we will allow some relative permissive elevation of blood pressure while avoiding excessive increases. We will continue her home medication but avoid aggressive control. Note CT of the brain did not demonstrate any intracranial hemorrhage. Awaiting reconciliation of home meds but she didstates she is on lisinopril in the a.m., [...] artery disease (I25.10: Atherosclerotic heart disease of algaaciq coronary artery withoutangina pectoris) Mild to moderate. Cardiac catheterization on the LAD was 30% occluded, left circumflex 30% occluded, recurrent artery 50% occluded, ejection fraction of 75 to 80%. Continue statin. Continue beta-blockers while watching fatigue 8. Hyperlipidemia (E78.5: Hyperlipidemia, unspecified) We will initiate atorvastatin which she was prescribed by her mechanical field engineer but has not yet filled as this was recently prescribed 9. Obstructive sleep apnea (G47.33: Obstructive sleep apnea (adult) (pediatric)) She states she stopped using CPAP several years prior, she has lost significant amounts of weight with assistance of pharmacologic agents in addition to her Dnuia en Y and has been considered by [...] breast (Z86.000: Personal history of in-situ neoplasm ofbreast) Diagnosed in September 2012 received radiation therapy [...] mL, Susp-Oral, Oral, q6hr PRN Indigestion, Routine, Startdate 07/27/22 22:56:00 EDT aspirin, 81 mg = [...] will not require 2 midnight stay Extracted from:Title:ED NoteAuthor:Musa Wheat DODate:07/27/22 Acute headache (R51.9: Heada josué, unspecified) Altered [...] Basic Metabolic Panel CBC w/ Auto Diff Chelsea Stroke Scale Communication Order Physician to Nursing [...] Date:08/05/2022 01:00:00 PM Scheduled Provider:Keshia Taylor MD Location:[facility] Appointment Type: Hospital Follow Up w/TCM Appointment Date:08/15/2022 02:15:00 PM Scheduled Provider:Zaina ALEJANDRA, Ady Young [facility] Follow Up (FT) [facility]09-29-2022 Hospital Discharge instructions Patient Education 07/25/2022 12:23:32 CV - Cardiovascular Discharge Instructions (CUSTOM) [place], [place] CARDIOVASCULAR DISCHARGE INSTRUCTIONS Diet: Resume pre-procedure [...] hours post procedure: Actoplus MetGlucophageGlucophage XR GlucovanceAvandametFortamet Pso-ktvvarzdfEelnwbWdqx-aajfnhjbj GlumetzaJanumetMetaglip RiometGlycomet *Minimal pain, soreness and/or discomfort [...] you are interested in smoking cessation, contact [facility] at [phone], ext. [phone]. In the event you are unable to reach your physician, please call [facility] at [phone] and the fixed route operator will assist you. Seek Immediate Medical Care for: Bleeding: Apply continuous pressure to the site and Call 911. Should the arm or leg become cold, numb, blue or white call your physician immediately. Signs of infection are redness, warmth, swelling, increased tenderness, colored drainage, fever or chills Chest pain Follow Up Care 07/15/2022 15:41:47 With:Ady Mahajan Address: [facility] [place] [address]- Business (1) When:08/15/2022 14:15:00 [facility]09-29-2022 Evaluation + Plan noteExtracted from: Title:Procedure Note Heart & VascularAuthor:Ady Mahajan MDDate: 07/25/22 Ordered: acetaminophen, 325 mg = 1 tab(s), [...] Date:08/15/2022 02:15:00 PM Scheduled Provider:Ady Mahajan MD Location:FT.Cardiology Clinic Appointment Type:Cardiology Follow Up (FT) [facility]04-28-2022 Miscellaneous Notes* Telephone Encounter - Alida Garrido - 02/21/2022 8:41 AM EDT Records faxed to [facility] [phone]. documented in this encounterDunlap Memorial Hospital04-27-2022 Hospital Discharge instructions Patient Education 02/20/2022 [...] Follow these instructions at home: Medicines Take svys-pem-wrxbaew and prescription medicines only as told by [...] of a condition that needs treatment. Take drkn-svb-gmtreic and prescription medicines only as told by [...] 04/10/2012 Document Revised: 11/01/2019 Document Reviewed: 11/01/2019 [facility] Patient Education 2020 [employer]run.it. [facility] Evaluation + Plan note No data available for this section [facility] Evaluation + Plan note Future Appointments Appointment Date:07/12/2022 01:15:00 PM Scheduled Provider:Ady Mahajan MD [facility]iology ED [facility] Future Appointments Appointment Date:07/25/2022 09:00:00 AM Scheduled Provider: [facility] AICD (FT) Future Scheduled Tests Radiology* CV Cardiovascular 07/25/22 [facility] Future Appointments Appointment Date:08/15/2022 02:15:00 PM Scheduled Provider:Ady Mahajan MD [facility] Type:Cardiology Follow Up (FT) Appointment Date:01/27/2023 02:20:00 PM Scheduled Provider:Keshia Taylor MD Location:[facility] Appointment Type:[facility] Evaluation + Plan note Future Appointments Appointment Date:01/27/2023 02:20:00 PM Scheduled Provider:Keshia Taylor MD Location[facility] Diagnosis Mass of breast, unspecified laterality- Primary documented in this encounter [facility] note* Diagnosis Mass of breast, unspecified laterality- Primary Ductal carcinoma in situ (DCIS) of left breast documented in this encounter [facility] note* Diagnosis Mass of breast, unspecified laterality documented in this encounter [facility] note* Diagnosis History of ductal carcinoma in situ (DCIS) of breast- Primary documented in this encounter [facility] noteNo assessment information availableWayne Hospital Ctr Work Phone: Hospital Discharge instructions No data available for this section [facility] No data available for this section [facility] (narrative)* Diagnostic Procedure Only (Routine) - New RequestSpecialtyDiagnoses / ProceduresReferred By ContactReferred To ContactBR IMAGING Diagnoses History of ductal carcinoma in situ (DCIS) of breast Procedures DEANDRA SCREENING W EL SCREENING DIGITAL BREAST TOMOSYNTHESIS BI SCREENING MAMMOGRAPHY BI 2-VIEW BREAST INC CAD Jason Buchanan MD [address] [place] [address] [place] [address] [facility] [address] [place] [id number] Referral IDStatusJaquiasonStart DateExpiration DateVisits RequestedVisits [id number] Request Auto-Generated Referral / [facility] HospitalCamila for referral (narrative)No reason for referral information availableWayne Hospital Ctr Work Phone: Summary Purpose Family History No Family History Records FoundNo Family History Records FoundNo Family History Records Found No data available for this section No data available for this section No Family History Records FoundNo Family History [...] Reason for Visit Chief Complaint vaccine ins Chief Complaint Admit Date V low back pain May 09, 2025 11:1 5am Assessments No Assessments Information Available Reason for Referral SpecialtyDiagnoses / ProceduresReferred By ContactReferred To ContactMR IMAGING Diagnoses Mass of breast, unspecified laterality Procedures MRI BREAST WO/W IVCON BILATERAL MRI BREAST WITHOUT&WITH CONTRAST W/CAD BILATERAL Rosita Meza PA-C [address] [place] [address] [place] [address] Mr Imaging Referral IDStatusReasonStart DateExpiration DateVisits RequestedVisits [id number] Review Auto-Generated Referral / Additional Source Comments INFORMATION SOURCE (unrecogn ized section and content) DATE CREATED AUTHOR 04/17/2018 [facility] DATE CREATED AUTHOR AUTHOR'S ORGANIZ ATION 09/06/2022 [facility] DATE CREATED AUTHOR AUTHOR'S ORGANIZ ATION 09/17/2024 [facility] DATE CREATED AUTHOR AUTHOR'S ORGANIZ ATION 11/11/2024 [facility] DATE CREATED AUTHOR AUTHOR'S ORGANIZ ATION 11/26/2024 [facility] DATE CREATED AUTHOR AUTHOR'S ORGANIZ ATION 06/04/2025 [facility] DATE CREATED AUTHOR AUTHOR'S ORGANIZ ATION 07/08/2025 [facility] DATE CREATED AUTHOR AUTHOR'S ORGANIZ ATION 07/09/2025 [facility] DATE CREATED AUTHOR AUTHOR'S ORGANIZ ATION 08/27/2025 [facility] Source Comments (unrecognize d section and content) In the event this informatio n is protected by the Federal Confidentiality of Alcohol and Drug Abuse Patient Records regulations: The Federal rules restrict any use of the information to criminally investigate or prosecute any alcohol or drug abuse patient.[facility] HospitalIn the event this information is protected by the Federal Confidentiality of Alcohol and Drug Abuse Patient Records regulations: The Federal rules restrict any use of the information to criminally investigate or prosecute any alcohol or drug abuse patient.[facility] HospitalIn the event this information is protected by the Federal Confidentiality of Alcohol and Drug Abuse Patient Records regulations: The Federal rules restrict any use of the information to criminally investigate or prosecute any alcohol or drug abuse patient.[facility] HospitalIn the event this information is protected by the Federal Confidentiality of Alcohol and Drug Abuse Patient Records regulations: The Federal rules restrict any use of the information to criminally investigate or prosecute any alcohol or drug abuse patient.[facility] HospitalIn the event this information is protected by the Federal Confidentiality of Alcohol and Drug Abuse Patient Records regulations: The Federal rules restrict any use of the information to criminally investigate or prosecute any alcohol or drug abuse patient.[facility] HospitalIn the event this information is protected by the Federal Confidentiality of Alcohol and Drug Abuse Patient Records regulations: The Federal rules restrict any use of the information to criminally investigate or prosecute any alcohol or drug abuse patient.[facility] HospitalIn the event this information is protected by the Federal Confidentiality of Alcohol and Drug Abuse Patient Records regulations: The Federal rules restrict any use of the information to criminally investigate or prosecute any alcohol or drug abuse patient.[facility] HospitalIn the event this information is protected by the Federal Confidentiality of Alcohol and Drug Abuse Patient Records regulations: The Federal rules restrict any use of the information to criminally investigate or prosecute any alcohol or drug abuse patient.[facility] HospitalIn the event this information is protected by the Federal Confidentiality of Alcohol and Drug Abuse Patient Records regulations: The Federal rules restrict any use of the information to criminally investigate or prosecute any alcohol or drug abuse patient.[facility] HospitalIn the event this information is protected by the Federal Confidentiality of Alcohol and Drug Abuse Patient Records regulations: The Federal rules restrict any use of the information to criminally investigate or prosecute any alcohol or drug abuse patient.[facility] HospitalIn the event this information is protected by the Federal Confidentiality of Alcohol and Drug Abuse Patient Records regulations: The Federal rules restrict any use of the information to criminally investigate or prosecute any alcohol or drug abuse patient.[facility] HospitalIn the event this information is protected by the Federal Confidentiality of Alcohol and Drug Abuse Patient Records regulations: The Federal rules restrict any use of the information to criminally investigate or prosecute any alcohol or drug abuse patient.[facility] HospitalIn the event this information is protected by the Federal Confidentiality of Alcohol and Drug Abuse Patient Records regulations: The Federal rules restrict any use of the information to criminally investigate or prosecute any alcohol or drug abuse patient.[facility] Reason for Visit (unrecogniz ed section and content) ReasonCommentsRecords faxedReasonCommentsRefill RequestReasonCommentsPatient UpdateReasonCommentsAppointment ConfirmationReasonOnset DateCommentsRefill [id number]/[id number]/2023ReasonCommentsBreast MRIReasonCommentsResultsReasonComments Radiology MRISpecialtyDiagnoses / ProceduresReferred By ContactReferred To ContactMR IMAGING Diagnoses Mass of breast, unspecified laterality Procedures MRI BREAST WO/W IVCON BILATERAL MRI BREAST WITHOUT&WITH CONTRAST W/CAD BILATERAL Rosita Meza, JOLLY [address] [place] [address] [place] [address] [place] [address] Referral IDStatusReasonStart DateExpiration DateVisits RequestedVisits [id number] Auto-Generated Referral [id number] CancerTOC Care Teams (unrecognized sec tion and content) Team MemberRelationshipSpecialtyStart DateEnd Date Alexandra Castaneda MD [address] [place] [address] PCP - GeneralFamily Practice11/30/12Team MemberRelationshipSpecialtyStart DateEnd Date Alexandra Castaneda MD [address] [place] [address] PCP - GeneralFamily Practice11/30/12Team MemberRelationshipSpecialtyStart DateEnd Date Alexandra Castaneda MD [address] [place] [address] PCP - Generalmily Medicine11/30/12Team MemberRelationshipSpecialtyStart DateEnd Date Alexandra Castaneda MD [address] [place] [address] PCP - Generalmily Medicine11/30/12Team MemberRelationshipSpecialtyStart DateEnd Date Alexandra Castaneda MD [address] [place] [address] PCP - Generalmily Medicine11/30/12Team MemberRelationshipSpecialtyStart DateEnd Date Alexandra Castaneda MD [address] [place] [address] PCP - Generalmily Medicine11/30/12Team MemberRelationshipSpecialtyStart DateEnd Date Alexandra Castaneda MD [address] [place] [address] PCP - Generalmily Medicine11/30/12Team MemberRelationshipSpecialtyStart DateEnd Date Alexandra Castaneda MD [address] [place] [address] PCP - Generalmily Medicine11/30/12Team MemberRelationshipSpecialtyStart DateEnd Date Alexandra Castaneda MD [address] [place] [address] PCP - GeneralFamily Medicine11/30/12Team MemberRelationshipSpecialtyStart DateEnd Date Alexandra Castaneda MD [address] [place] [address] PCP - GeneralFamily MedicineTeam MemberRelationshipSpecialtyStart DateEnd Date Keshia Taylor MD [address] [place] [place] [address] [facility]CP - [facility]07[facility] Team Status: Active Member Role Status Dates Keshia Taylor MD Primary Care Provider Active Team Status: Inactive Member Role Status Dates Keshia Taylor MD Primary Care Provider Active Start: May 09, 2025 End: May 09, 2025Samualex Taylor MDAttending ProviderActiveStart: May 09, 2025 End: May 09, 2025 Goals (unrecognized section and content) Goals may be documented in a n alternate section FOR RECORDS PERTAINING TO PATIENTS WHO ARE [...] BE BASED ON THE PRIMARY CLINICAL RECORDS. [facility]. provides no warranty or guarantee of the accuracy or completeness of information in this document.
--- NOTE | 2025-09-02 10:41 | MM_ITS ---
Patient Name: Tato TOLBERT MR#: [id number] : 1960 Exam Date: 09/02/2025 Ordering Doctor: HEIDI GARNETT . RADIOLOGY REPORT PROCEDURE: MM TOMOSYNTHESIS SCREENING BI COMPARISON: MM TOMOSYNTHESIS SCREENING BI, 08/24/2024. MM TOMOSYNTHESIS DIAGNOSTIC LT, 05/13/2023. MG MAMM SCREEN 3D EDDIE CAD, 08/12/2022. MG MAMM DIAGNOSTIC 3D EDDIE CAD, 08/08/2021. INDICATIONS: Screening Calculator Name NCI Breast Cancer Risk Assessment Tool 5 Year Breast Cancer Risk n/a% Lifetime Breast Cancer Risk n/a% Personal Breast Cancer Yes, DCIS, cribiform type Personal Ovarian Cancer No Treatments Lumpectomy, radiation,Tamoxifen Family Cancers Mother with breast cancer at age 72; Father with skin cancer at age 65. LOCATION: [facility] BREAST COMPOSITION: There are scattered areas of fibroglandular density. FINDINGS: DIAGNOSTIC CATEGORY 1--NEGATIVE. RIGHT BREAST: No significant suspicious finding. LEFT BREAST: No significant suspicious finding. RECOMMENDATIONS: ROUTINE MAMMOGRAM AND CLINICAL EVALUATION IN 12 MONTHS. Dictated by: Mikel Tavera MD on 09/02/2025 at 13:29 Approved by: Mikel Tavera MD on 09/02/2025 at 13:32
== END 2025-09-02 10:35 | disposition home or self-care (01) ==
LOC: MAMMO 10:34
PROVIDERS: PCP Nurse Practitioner; Visit Provider Nurse Practitioner
DX: Z12.31 Encounter for screening mammogram for malignant neoplasm of breast (principal); M85.80 Other specified disorders of bone density and structure, unspecified site; Z80.3 Family history of malignant neoplasm of breast; Z80.8 Family history of malignant neoplasm of other organs or systems; M85.88 Other specified disorders of bone density and structure, other site
CPT/HCPCS: 77063; 77067; 77080